=== PATIENT | female | born 1980 | race Caucasian/White ===

== ENCOUNTER 2020-08-05 09:54 | Outpatient (REF) | payer MEDICAID, SELFPAY ==
--- NOTE | 2020-08-05 | US_ITS ---
EXAMINATION: US RETROPERITONEAL LIMITED (RENAL ONLY) CLINICAL INFORMATION: Chronic kidney disease stage IV. COMPARISON: CT abdomen and pelvis dated 01/04/2020 TECHNIQUE: Real-time imaging of the kidneys. FINDINGS: RIGHT KIDNEY: 10.3 x 4.5 x 5.8 cm (SAG x AP x TRV). The kidney is normal in size and contour. No renal calculi or focal parenchymal lesions. There is increased renal cortical echogenicity and mild renal cortical thinning. Prominence of the collecting system. LEFT KIDNEY: 11.3 x 5.1 x 5.1 cm (SAG x AP x TRV). The kidney is normal in size and contour. No renal calculi or focal parenchymal lesions. Increased renal cortical echogenicity and mild renal cortical thinning. 9 mm cyst in the upper pole and a 9 mm cyst in the lower pole. No hydronephrosis. US/US renal BI IMPRESSION: Increased renal cortical echogenicity and mild renal cortical thinning consistent with underlying medical renal disease. Mild prominence of the right renal collecting system, similar to recent CT scan of the abdomen and pelvis.
== END 2020-08-05 09:55 | disposition home or self-care (01) ==
LOC: HO.US 09:54
PROVIDERS: Visit Provider Internal Medicine Nephrology
DX: N18.4 Chronic kidney disease, stage 4 (severe) (principal); N16 Renal tubulo-interstitial disorders in diseases classified elsewhere; N20.0 Calculus of kidney
CPT/HCPCS: 76775

== ENCOUNTER → 2020-09-30 14:47 | Outpatient (BNVA) | payer MEDICAID, SELFPAY | PROVIDERS: PCP Family Medicine; Visit Provider Urology | DX: N13.30 Unspecified hydronephrosis (principal) | CPT/HCPCS: 99202 ==

== ENCOUNTER → 2020-10-15 12:57 | Outpatient (REF) | payer MEDICAID, SELFPAY ==
--- NOTE | 2020-10-15 12:59 | NM_ITS ---
EXAMINATION: RENAL DYNAMIC IMAGING STUDY WITH LASIX CLINICAL INFORMATION: Hydronephrosis. Patient states question kidney stones and history of right back pain. Also states stent right kidney about 6 years ago. COMPARISON: No previous radionuclide renal scan is available for comparison. Renal ultrasound dated 08/05/[address] scan of the abdomen and pelvis, dated 01/04/2020, is available for comparison. TECHNIQUE: Serial gamma scintillation camera images were obtained over the posterior trunk during the initial transit and subsequent distribution of a bolus intravenous injection of 10 mCi of Tc-99m DTPA. At 30 minutes later, 36 mg of Lasix was administered intravenously and an additional 30 minutes of images obtained. Following acquisition of these dynamic images, a post voiding image was obtained. FINDINGS: Initial rapid sequence images show prompt and normal-appearing perfusion to the right kidney but moderately diminished perfusion to the left kidney which appears smaller than the right. Subsequent sequential static images obtained up to 30 minutes show good concentration in the right kidney but mildly diminished concentration in the left kidney which is slightly smaller in size on the right. There is evidence of excretory function by 3 to 4 minutes post injection bilaterally but this is slightly more intense on the right. At 30 minutes postinjection there is some activity visualized in the urinary bladder, but most of the activity is still retained in the bilateral renal collecting systems. There is mild pyelocaliectasis on the right but no significant dilatation on the left. Following Lasix administration, there is fairly prompt washout of the left renal collecting system but slower washout on the right. At the end of the study there is only minimal retained activity in the left renal pelvis which does not appear dilated but mild retention and dilatation are present in the right renal collecting system. The T-1/2 washout times following Lasix administration are: Left 14.2 minutes and right 28.9 minutes. The relative function of the two kidneys based on the 2-3 minute images are: Left 36% and right 64%. NM/NM renal imaging IMPRESSION: LEFT KIDNEY: The function of this kidney is significantly less than that of the right as quantitated above. Left kidney is slightly smaller than the right and also show diminished concentration. There is no hydronephrosis or outflow obstruction. RIGHT KIDNEY: Normal perfusion and function, and the latter are both significantly better than on the left. Mild hydronephrosis is present and there is a low-grade partial outflow obstruction, likely at the ureteropelvic junction.
== END ==
LOC: HO.NUCMED 12:57
PROVIDERS: Visit Provider Urology
DX: N13.30 Unspecified hydronephrosis (principal)
CPT/HCPCS: 78700; A9539; J1940

== ENCOUNTER → 2020-10-18 14:16 | Outpatient (BNVA) | payer MEDICAID, SELFPAY | PROVIDERS: Visit Provider Urology | DX: N13.30 Unspecified hydronephrosis (principal) | CPT/HCPCS: 99212 ==

== ENCOUNTER 2021-11-30 10:24 | Emergency (ER) | payer MEDICAID, SELFPAY ==
--- NOTE | ~2021-11-30 | CT_ITS ---
EXAMINATION: CT ABDOMEN AND PELVIS WITHOUT CONTRAST CLINICAL INFORMATION: Right-sided back pain. COMPARISON: CT 01/04/2020 TECHNIQUE: Multidetector volumetric imaging was performed from the superior aspect of the liver through the pubic symphysis. Sagittal and coronal reformatted images were obtained on the technologist's workstation. This CT examination was performed using dose optimization techniques as appropriate, variously including the following: *Automated exposure control *Adjustment of mA and/or kV according to patient size (this includes techniques or standardized protocols for targeted exams where dose is matched to indication/reason for exam; i.e. extremities or head) *Use of iterative reconstruction technique DLP: 481 mGy-cm FINDINGS: LUNG BASES: Mild to moderate bibasilar atelectasis/scarring, left greater than right, similar to previous. LIVER, GALLBLADDER, AND BILIARY TREE: Right lobe of the liver measures 18.6 cm. Normal shape, and attenuation. No focal hepatic lesion or biliary ductal dilatation is present. The gallbladder is unremarkable with no evidence of radiopaque gallstones, gallbladder wall thickening, or obvious pericholecystic inflammatory changes. PANCREAS: Unremarkable SPLEEN: Unremarkable. ADRENAL GLANDS: Unremarkable. KIDNEYS AND URETERS: Bilateral renal cortical thinning is redemonstrated. Redemonstrated are at least 4 right renal calculi, larger measuring 1.1 cm and lower pole image 3:39. Multiple punctate left renal calculi are noted. There is prominence of the right renal collecting system, appearing slightly more prominent as compared to previous. Some of the hypodensities in the right renal pelvis could be related to parapelvic cysts. There is minimal stranding adjacent to the left renal pelvis/proximal ureter. No radiodense calculi seen in the right collecting system. No hydroureter.. There is prominence of the left renal pelvis, appearing similar as compared to previous. No radiodense calculi are seen in the left collecting system, left ureter. No left hydroureter.. Left renal lower pole 3.2 cm cyst. BLADDER: Partially distended. No radiodense calculi noted in the bladder. GASTROINTESTINAL TRACT: Stomach is nondistended. No dilated small bowel loops. No colonic wall thickening or pericolonic inflammatory changes. Moderate volume stool in the large colon. Normal appendix. No ascites. No free air. ABDOMINAL WALL: No significant hernia is appreciated. LYMPH NODES: No pathologically enlarged lymph nodes are seen. VASCULAR: Normal caliber aorta. PELVIC VISCERA: Anteverted uterus. Left ovary appears enlarged, contains a 3 cm cyst. (Hounsfield measurements 11).. OSSEOUS STRUCTURES: Unremarkable. CT/CT abdomen pelvis wo con IMPRESSION: 1. Multiple bilateral nonobstructing renal calculi, detailed above. Prominence of the right renal pelvis, slightly more prominent as compared to previous. Possible component of right renal peripelvic cysts. There is similar prominence of the left renal pelvis. No hydroureter is seen. No radiodense calculi in the collecting system bilaterally is noted. Bilateral renal cortical thinning. Left renal lower pole 2.2 cm cyst. 2. Left ovary appears enlarged, contains a 3 cm cyst. If clinically indicated, this can be further evaluated with ultrasound. 3. No acute bowel findings seen. Fleischner guidelines were followed.
--- NOTE | ~2021-11-30 | XR_ITS ---
EXAMINATION: XR CHEST CLINICAL INFORMATION: Right-sided rib pain. COMPARISON: Chest radiograph dated 07/27/2017. TECHNIQUE: 2 views of the chest were obtained. FINDINGS: Stable linear scarring versus atelectasis within the left lung base. No new airspace consolidation. No pleural effusion or pneumothorax. Stable cardiomediastinal silhouette. XR/XR chest 2V IMPRESSION: No acute cardiopulmonary findings.
[2021-11-30 10:33] VITALS: BP 187/85; PULSE 95; RESP 20; TEMP 37.1; O2SAT 99; BMI 27.2
--- NOTE | 2021-11-30 10:47 | ED.GENADULT ---
HPI - General Adult General Chief complaint: General Medical Stated complaint: r rib pain Time Seen by Provider: 11/30/21 10:47 Related Data Home Medications Medication Instructions Recorded Confirmed betamethasone dipropionate 0.05 % 1 appl TOPICAL DAILY 09/30/20 09/30/20 lotion bupropion HCl 150 mg 24 hr tablet, 150 mg PO QAM 09/30/20 09/30/20 extended release Allergies Allergy/AdvReac Type Severity Reaction Status Date / Time No Known Allergies Allergy Verified 11/30/21 10:37 PMFSH Past Medical History Medical History Abscess of groin, right Chronic kidney disease Groin abscess Hydronephrosis Obstructive uropathy Renal failure Skin abscess Surgical History History of lithotripsy Family History Family History Father Diabetes mellitus HTN (hypertension) Mother Diabetes mellitus HTN (hypertension) Social History Social History Advance Directives: No Advance Directives Information Provided: No Patient : No Physical Exam ED Vital Signs: Vital Signs - 24 hr 11/30/21 10:33 Temperature 98.8 F Pulse Rate 95 Respiratory Rate 20 Blood Pressure 187/85 H Pulse Oximetry 99 BMI result Body Mass Index 27.2 Discharge Plan Discharge Prescriptions: No Action bupropion HCl 150 mg tablet extended release 24 hr 150 mg PO QAM 0RF betamethasone dipropionate 0.05 % lotion 1 appl topical DAILY 0RF
[2021-11-30 11:30] LABS: MANUAL DIFF FLAG NO
[2021-11-30 11:32] LABS: Basophils Absolute Auto 0.1 X10*3/uL (0.0-0.2); Basophils Percent Auto 0.8 % (0-2); Eosinophils Absolute Auto 0.3 X10*3/uL (0.0-0.4); Eosinophils Percent Auto 2.9 % (0-4); Hematocrit 37.4 % (37.0-47.0); Hemoglobin 12.9 g/dl (12.0-16.0); Imm Gran Abs Auto 0.04 X10*3/uL (0.00-0.03); Imm Gran Pct Auto 0.5 % (0.0-0.4); Lymphocytes Absolute Auto 2.9 X10*3/uL (1.2-4.9); Lymphocytes Percent Auto 32.8 % (20-40); Mean Corpuscular HGB Conc 34.5 g/dl (31.0-35.0); Mean Corpuscular Hemoglobin 28.4 pg (27.0-33.0); Mean Corpuscular Volume 82.4 fL (80.0-98.0); Mean Platelet Volume 10.5 fL (9.4-12.3); Monocytes Absolute Auto 0.7 X10*3/uL (0.1-1.2); Monocytes Percent Auto 7.5 % (2-11); Neutrophils Absolute Auto 4.8 x10*3/uL (2.0-8.3); Neutrophils Percent Auto 55.5 % (45-73); Platelet Count 230 X10*3/uL (160-400); Red Blood Count 4.54 X10*6/uL (4.20-5.50); Red Cell Distribution Width 13.4 % (11.0-16.0); White Blood Count 8.7 X10*3/uL (4.8-10.8)
--- NOTE | 2021-11-30 11:33 | PC.NURSE ---
Pt received: Pt AOX4 and offers c/o L lower back that intermittently radiates to front of stomach. Pt alsoc c/o urinary freq. Pt able to ambulate to ER bed. Heart sounds normal and lungs clear. Pt abd soft and tenderness to LLQ. Pt also c/o N/V.
--- NOTE | 2021-11-30 11:38 | ED.GENADULT ---
HPI - General Adult General Chief complaint: General Medical Stated complaint: r rib pain Time Seen by Provider: 11/30/21 10:47 Source: patient and foreign language interpreter Mode of arrival: ambulatory Limitations: language barrier History of Present Illness HPI narrative: 41-year-old female with a history of renal colic status post stenting followed by [facility] urology here with reports of 1 week of right-sided back pain with radiation to the right lower abdomen intermittent in nature with associated urinary frequency and nausea. No vomiting, diarrhea, constipation, fevers, urinary burning or hematuria. Patient reports she is currently on her menses. Related Data Home Medications Medication Instructions Recorded Confirmed betamethasone dipropionate 0.05 % 1 appl TOPICAL DAILY 09/30/20 09/30/20 lotion bupropion HCl 150 mg 24 hr tablet, 150 mg PO QAM 09/30/20 09/30/20 extended release Previous Rx's Medication Instructions Recorded cefpodoxime 100 mg tablet 100 mg PO BID #14 tab 11/30/21 oxycodone 5 mg tablet 5 mg PO Q6H PRN #5 tab 11/30/21 phenazopyridine 200 mg tablet 200 mg PO TID PRN #10 tab 11/30/21 (Pyridium) Allergies Allergy/AdvReac Type Severity Reaction Status Date / Time No Known Allergies Allergy Verified 11/30/21 10:37 Review of Systems Review of Systems: Yes all other systems are reviewed and are negative Constitutional: Constitutional: Reports no additional constitutional complaints, Denies body ache(s), Denies chills, Denies fever(s), Denies headache(s) and Denies weakness Eyes: Eyes: Reports no additional eye complaints and Denies change in vision ENT: Reports system reviewed and no additional complaints, except as documented, Denies dizziness, Denies headache(s), Denies nasal congestion, Denies nasal discharge and Denies neck pain Cardiovascular: Cardiovascular: Reports no additional cardiovascular complaints, Denies chest pain, Denies leg edema and Denies dyspnea Respiratory: Respiratory: Reports no additional respiratory complaints, Denies cough and Denies dyspnea Gastrointestinal: Gastrointestinal: Reports no additional gastrointestinal complaints, Reports abdominal pain, Denies diarrhea, Reports nausea and Denies vomiting Genitourinary: Genitourinary: Reports no additional female genitourinary complaints, Denies dysuria, Reports flank pain, Denies urinary incontinence, Denies urinary hesitancy, Denies urinary urgency and Denies vaginal discharge Musculoskeletal: Musculoskeletal: Reports no additional musculoskeletal complaints, Reports back pain, Denies arthralgias, Denies joint swelling, Denies neck pain, Denies numbness and Denies tingling Integumentary/Breasts: Skin/Breast: Reports system reviewed and no additional complaints, except as docu and Denies rash Neurologic: Reports system reviewed and no additional complaints, except as documented, Denies dizziness, Denies headache(s), Denies numbness, Denies tingling and Denies weakness [facility] Past Medical History Attestation statement: The following information was validated with the patient. Source: old records reviewed and nursing notes reviewed Medical History Abscess of groin, right Chronic kidney disease Groin abscess Hydronephrosis Obstructive uropathy Renal failure Skin abscess Surgical History History of lithotripsy Family History Family History Father Diabetes mellitus HTN (hypertension) Mother Diabetes mellitus HTN (hypertension) Social History Social History Advance Directives: No Advance Directives Information Provided: No Patient : No Physical Exam ED Vital Signs: Vital Signs - 24 hr 11/30/21 10:33 11/30/21 13:03 Temperature 98.8 F Pulse Rate 95 59 Respiratory Rate 20 16 Blood Pressure 187/85 H 154/72 H Pulse Oximetry 99 99 BMI result Body Mass Index 27.2 Const General: cooperative, healthy appearing, comfortable and no acute distress Orientation/consciousness: patient oriented x3 Limitations: language barrier HENMT Head: Yes normal to inspection Ears: hearing grossly normal bilaterally and TM's normal bilaterally General nose exam: Normal external nose present Face and sinus: Yes normal facial exam Mouth: Normal oral and palatal mucosa present Teeth and gingiva: dentition normal Throat: Yes posterior oropharynx normal and Yes tonsils normal Eyes General: appearance normal, both eyes and all related structures Pupils: Equal, round and reactive pupils present Neck Neck: Yes normal visual inspection, Yes full ROM, Yes no lymphadenopathy and Yes no meningeal signs Chest Chest palpation & inspection: normal inspection of the chest Resp Effort & Inspection: normal respiratory effort Auscultation: clear to auscultation bilaterally Cardio Rate: regular rate Rhythm: regular rhythm Peripheral pulses: Peripheral pulses 2+ throughout GI Inspection: Yes normal to inspection Palpation (GI): Soft to palpation and Tenderness to palpation present (GI) (right sided abdomen-no rebound or guarding ) General: Yes CVA tenderness (righ tmod) Back/Spine/Pelvis Back: CVA tenderness (righ tmod) Neuro General: patient oriented x3 and no meningeal signs Cranial nerves: Yes Equal, round and reactive pupils present Course Course Course Narrative: 41-year-old female here with reports of intermittent right flank and abdomen pain with urinary frequency and nausea over the last 1 week. On exam has tenderness in the right abdomen as well as the right CVA. No rebound or guarding. Will need labs, UA, CT A/P 1400-labs unremarkable. UA is consistent with infection. CT abdomen pelvis shows 1. Multiple bilateral nonobstructing renal calculi, detailed above. Prominence of the right renal pelvis, slightly more prominent as compared to previous. Possible component of right renal peripelvic cysts. There is similar prominence of the left renal pelvis. No hydroureter is seen. No radiodense calculi in the collecting system bilaterally is noted. ? Bilateral renal cortical thinning. Left renal lower pole 2.2 cm cyst. ? 2. Left ovary appears enlarged, contains a 3 cm cyst. If clinically indicated, this can be further evaluated with ultrasound. ? 3. No acute bowel findings seen. -patient is feeling improved tolerating p.o.. 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 Based on the CT scan there is some slight prominence of the right renal pelvis and there may be a component of some outflow obstruction. However there is no evidence of hydronephrosis or stranding. She has a urologist at [facility] and she can follow up with them outpatient. Reviewed worrisome signs and symptoms of when to return to the emergency department. Comfortable discharge home. Medical Decision Making MDM Narrative Medical decision making narrative: Renal colic, pyelonephritis, cholecystitis, gallstones, appendicitis Medical Records Medical records reviewed: Yes I reviewed the patient's medical records. Lab Data Lab results reviewed: Yes I reviewed the patient's lab results. Result diagrams: 11/30/21 11:24 11/30/21 11:24 Labs: Lab Results 11/30/21 11/30/21 11/30/21 Range/Units 11:24 11:24 11:53 WBC 8.7 (4.8-10.8) X10*3/uL RBC 4.54 (4.20-5.50) X10*6/uL Hgb 12.9 (12.0-16.0) g/dl Hct 37.4 (37.0-47.0) % MCV 82.4 (80.0-98.0) fL MCH 28.4 (27.0-33.0) pg MCHC 34.5 (31.0-35.0) g/dl RDW 13.4 (11.0-16.0) % Plt Count 230 (160-400) X10*3/uL MPV 10.5 (9.4-12.3) fL Immature Gran % (Auto) 0.5 H (0.0-0.4) % Neut % (Auto) 55.5 (45-73) % Lymph % (Auto) 32.8 (20-40) % [place] % (Auto) 7.5 (2-11) % Eos % (Auto) 2.9 (0-4) % Baso % (Auto) 0.8 (0-2) % Lymph # (Auto) 2.9 (1.2-4.9) X10*3/uL [place] # (Auto) 0.7 (0.1-1.2) X10*3/uL Eos # (Auto) 0.3 (0.0-0.4) X10*3/uL Baso # (Auto) 0.1 (0.0-0.2) X10*3/uL Abs Immat Gran (auto) 0.04 H (0.00-0.03) X10*3/uL Absolute Neuts (auto) 4.8 (2.0-8.3) x10*3/uL Absolute Nucleated RBC 0.000 (0.0-0.012) X10*3/uL Nucleated RBC % (auto) 0.0 (0.0-0.2) /100WBC Sodium 136 (135-145) mmol/L Potassium 4.4 (3.3-5.1) mmol/L Chloride 105 (96-108) mmol/L Carbon Dioxide 25 (22-29) mmol/L Anion Gap 10 L (12-20) BUN 16 (9-16) mg/dL Creatinine 1.98 H (0.5-1.4) mg/dL Estim Creat Clear Calc 36.3 Estimated GFR 28 Random Glucose 83 (60-115) mg/dL Calcium 9.8 (8.4-10.2) mg/dL Total Bilirubin 0.2 (0.0-1.0) mg/dL Direct Bilirubin < 0.2 (0.0-0.5) mg/dL AST 16 (5-31) U/L ALT 10 (0-31) U/L Alkaline Phosphatase 95 (39-117) U/L Total Protein 7.4 (6.5-8.0) g/dL Albumin 4.0 (3.5-5.0) g/dL Lipase 64 (8-78) U/L Urine Color YELLOW Urine Appearance CLOUDY Urine pH 6.0 (5.0-8.0) Ur Specific [place] 1.020 (1.005-1.025) Urine Protein 2+ H (NEG-TRACE) MG/DL Urine Glucose (UA) NEG (NEG) MG/DL Urine Ketones NEG (NEG) MG/DL Urine Blood NEG (NEG) Urine Nitrite NEG (NEG) Ur Leukocyte Esterase 2+ H (NEG) Urine RBC 0 (0) /HPF Urine WBC 15-29 H (0-4) /HPF Ur Squamous Epith Cells 2+ /LPF Urine Bacteria 4+ /LPF Urine Test (NEGATIVE) 11/30/21 Range/Units 11:53 WBC (4.8-10.8) X10*3/uL RBC (4.20-5.50) X10*6/uL Hgb (12.0-16.0) g/dl Hct (37.0-47.0) % MCV (80.0-98.0) fL MCH (27.0-33.0) pg MCHC (31.0-35.0) g/dl RDW (11.0-16.0) % Plt Count (160-400) X10*3/uL MPV (9.4-12.3) fL Immature Gran % (Auto) (0.0-0.4) % Neut % (Auto) (45-73) % Lymph % (Auto) (20-40) % [place] % (Auto) (2-11) % Eos % (Auto) (0-4) % Baso % (Auto) (0-2) % Lymph # (Auto) (1.2-4.9) X10*3/uL [place] # (Auto) (0.1-1.2) X10*3/uL Eos # (Auto) (0.0-0.4) X10*3/uL Baso # (Auto) (0.0-0.2) X10*3/uL Abs Immat Gran (auto) (0.00-0.03) X10*3/uL Absolute Neuts (auto) (2.0-8.3) x10*3/uL Absolute Nucleated RBC (0.0-0.012) X10*3/uL Nucleated RBC % (auto) (0.0-0.2) /100WBC Sodium (135-145) mmol/L Potassium (3.3-5.1) mmol/L Chloride (96-108) mmol/L Carbon Dioxide (22-29) mmol/L Anion Gap (12-20) BUN (9-16) mg/dL Creatinine (0.5-1.4) mg/dL Estim Creat Clear Calc Estimated GFR Random Glucose (60-115) mg/dL Calcium (8.4-10.2) mg/dL Total Bilirubin (0.0-1.0) mg/dL Direct Bilirubin (0.0-0.5) mg/dL AST (5-31) U/L ALT (0-31) U/L Alkaline Phosphatase (39-117) U/L Total Protein (6.5-8.0) g/dL Albumin (3.5-5.0) g/dL Lipase (8-78) U/L Urine Color Urine Appearance Urine pH (5.0-8.0) Ur Specific [place] (1.005-1.025) Urine Protein (NEG-TRACE) MG/DL Urine Glucose (UA) (NEG) MG/DL Urine Ketones (NEG) MG/DL Urine Blood (NEG) Urine Nitrite (NEG) Ur Leukocyte Esterase (NEG) Urine RBC (0) /HPF Urine WBC (0-4) /HPF Ur Squamous Epith Cells /LPF Urine Bacteria /LPF Urine Test NEGATIVE (NEGATIVE) Imaging Data CT scan - abdomen: Attestation: I personally reviewed and interpreted this imaging study as follows: Radiologist's impression: IMPRESSION: 1. Multiple bilateral nonobstructing renal calculi, detailed above. Prominence of the right renal pelvis, slightly more prominent as compared to previous. Possible component of right renal peripelvic cysts. There is similar prominence of the left renal pelvis. No hydroureter is seen. No radiodense calculi in the collecting system bilaterally is noted. ? Bilateral renal cortical thinning. Left renal lower pole 2.2 cm cyst. ? 2. Left ovary appears enlarged, contains a 3 cm cyst. If clinically indicated, this can be further evaluated with ultrasound. ? 3. No acute bowel findings seen. ? Fleischner guidelines were followed. Discharge Plan Discharge Clinical Impression: UTI (urinary tract infection) Patient Disposition: Home, Self-Care Instructions: Urinary Tract Infection in Women (DC) Additional Instructions: Follow-up with a urologist Increase fluids, rest Your CT scan shows several kidney stones are with in your kidney. There is slight swelling of the right renal pelvis which was seen on your previous CT scan. You can discuss this with your urologist. Prescriptions: New cefpodoxime 100 mg tablet 100 mg PO BID Qty: 14 0RF Rx Instructions: must administer with a meal/food phenazopyridine [Pyridium] 200 mg tablet 200 mg PO TID PRN (Reason: pain) Qty: 10 0RF oxycodone 5 mg tablet 5 mg PO Q6H PRN (Reason: pain) Qty: 5 0RF No Action bupropion HCl 150 mg tablet extended release 24 hr 150 mg PO QAM 0RF betamethasone dipropionate 0.05 % lotion 1 appl topical DAILY 0RF Referrals: Physician,Unknown J [Primary Care Provider] - 1 week Stand Alone Forms: Work/School Release Interventions: ED Discharge Assessment Last Done: 11/30/21 13:28 Discharge Date/Time: 11/30/21 13:35 Print Language: Estonian
[2021-11-30] MEDS: Ketorolac Tromethamine 30 MG/ML VIAL IVPUSH (11:39)
[2021-11-30] MEDS: 0.9 % Sodium Chloride 1,000 ML 999 ML IV (11:40)
[2021-11-30 11:47] LABS: Alanine Aminotransferase 10 U/L (0-31); Alkaline Phosphatase 95 U/L (39-117); Anion Gap 10 (12-20); Aspartate Amino Transferase 16 U/L (5-31); Bilirubin Total 0.2 mg/dL (0.0-1.0); Blood Urea Nitrogen 16 mg/dL (9-16); Calcium 9.8 mg/dL (8.4-10.2); Carbon Dioxide 25 mmol/L (22-29); Chloride 105 mmol/L (96-108); Creatinine Clr Calc Pharmacy 36.3; Estimated Glomerular Filt Rate 28; Glucose Random 83 mg/dL (60-115); Potassium 4.4 mmol/L (3.3-5.1); Sodium 136 mmol/L (135-145); Total Protein 7.4 g/dL (6.5-8.0)
[2021-11-30 11:57] LABS: Bilirubin Direct < 0.2 mg/dL (0.0-0.5); Lipase 64 U/L (8-78)
[2021-11-30 12:02] LABS: Appearance Urine CLOUDY; Color Urine YELLOW; Glucose Urine UA NEG (NEG); Leukocyte Esterase Urine 2+ (NEG); Nitrite Urine NEG (NEG); UACC Culture Trigger YES; Urine Blood NEG (NEG); Urine Ketones NEG (NEG); Urine Protein 2+ MG/DL (NEG-TRACE)
[2021-11-30 12:05] LABS: UPreg QC Valid YES; Urine Pregnancy NEGATIVE (NEGATIVE)
[2021-11-30 12:15] LABS: Squamous Epithelial Cell Urine 2+ /LPF
[2021-11-30 12:17] LABS: RBC Urine 0 /HPF (0)
[2021-11-30 12:18] LABS: Bacteria Urine 4+ /LPF
[2021-11-30 13:03] VITALS: BP 154/72; PULSE 59; RESP 16; O2SAT 99
== END 2021-11-30 13:35 | disposition home or self-care (01) ==
PROVIDERS: Nurse Practitioner Family; Physician Assistant; Emergency Provider Emergency Medicine
DX: N39.0 Urinary tract infection, site not specified (principal); R07.81 Pleurodynia; Z79.899 Other long term (current) drug therapy
CPT/HCPCS: 36415; 71046; 74176; 80053; 81001; 81003; 81025; 82248; 83690; 85025; 87086; 87088; 87186; 96360; 96361; 99283; 99284; J1885

== ENCOUNTER 2023-11-26 15:01 | Outpatient (REF) | payer MEDICAID, SELFPAY ==
[2023-11-26 16:02] LABS: MANUAL DIFF FLAG NO
[2023-11-26 16:31] LABS: Basophils Absolute Auto 0.1 X10*3/uL (0.0-0.2); Basophils Percent Auto 0.8 % (0-2); Eosinophils Absolute Auto 0.4 X10*3/uL (0.0-0.4); Eosinophils Percent Auto 4.6 % (0-4); Hematocrit 37.2 % (37.0-47.0); Hemoglobin 12.4 g/dl (12.0-16.0); Imm Gran Abs Auto 0.05 X10*3/uL (0.00-0.03); Imm Gran Pct Auto 0.6 % (0.0-0.4); Lymphocytes Absolute Auto 2.7 X10*3/uL (1.2-4.9); Lymphocytes Percent Auto 30.2 % (20-40); Mean Corpuscular HGB Conc 33.3 g/dl (31.0-35.0); Mean Corpuscular Hemoglobin 27.6 pg (27.0-33.0); Mean Corpuscular Volume 82.7 fL (80.0-98.0); Mean Platelet Volume 10.3 fL (9.4-12.3); Monocytes Absolute Auto 0.7 X10*3/uL (0.1-1.2); Monocytes Percent Auto 7.6 % (2-11); Neutrophils Percent Auto 56.2 % (45-73); Platelet Count 236 X10*3/uL (160-400); Red Cell Distribution Width 14.5 % (11.0-16.0); White Blood Count 8.9 X10*3/uL (4.8-10.8)
[2023-11-26 17:06] LABS: Creatinine Urine 45.69 mg/dL
[2023-11-26 17:17] LABS: Microalbum/Creatinine Ratio Ur 1367.9 ug/mg cr (<30)
[2023-11-26 18:09] LABS: Anion Gap 14 (12-20); Blood Urea Nitrogen 30 mg/dL (9-16); Calcium 9.9 mg/dL (8.4-10.2); Carbon Dioxide 26 mmol/L (22-29); Chloride 107 mmol/L (96-108); Estimated Glomerular Filt Rate 19; Glucose Random 103 mg/dL (60-115); Potassium 4.4 mmol/L (3.3-5.1); Sodium 143 mmol/L (135-145)
== END 2023-11-26 15:02 | disposition home or self-care (01) ==
LOC: HO.HHCL 15:01
PROVIDERS: Visit Provider Nurse Practitioner
DX: I12.9 Hypertensive chronic kidney disease with stage 1 through stage 4 chronic kidney disease, or unspecified chronic kidney disease (principal); N18.30 Chronic kidney disease, stage 3 unspecified
CPT/HCPCS: 36415; 80048; 82043; 82570; 85025

== ENCOUNTER 2024-01-12 15:32 | Outpatient (REF) | payer MEDICAID, SELFPAY ==
[2024-01-12 17:25] LABS: Anion Gap 11 (12-20); Blood Urea Nitrogen 20 mg/dL (9-16); Calcium 9.9 mg/dL (8.4-10.2); Carbon Dioxide 25 mmol/L (22-29); Chloride 105 mmol/L (96-108); Estimated Glomerular Filt Rate 25; Glucose Random 93 mg/dL (60-115); Iron 59 mcg/dL (30-160); Percent Iron Saturation 24 % (15-50); Phosphorus 2.8 mg/dL (2.7-4.5); Potassium 4.4 mmol/L (3.3-5.1); Sodium 137 mmol/L (135-145); Total Iron Binding Capacity 249 mcg/dL (228-428); Unsaturated Iron Binding 190 ug/dL
[2024-01-12 17:36] LABS: Ferritin 46 ng/mL (10-250); Vitamin D 25-OH Total 15.8 ng/mL (>30)
[2024-01-13 06:11] LABS: Parathyroid Hormone Intact 352.1 pg/mL (8.7-77.1)
[2024-01-14 11:44] LABS: C. trachomatis RNA TMA NOT DETECTED (NOT DETECTED); Candida glabrata RNA NOT DETECTED (NOT DETECTED); Candida species RNA NOT DETECTED (NOT DETECTED); N. gonorrhoeae RNA TMA NOT DETECTED (NOT DETECTED); Trichomonas vaginalis RNA NOT DETECTED (NOT DETECTED)
== END 2024-01-12 15:33 | disposition home or self-care (01) ==
LOC: HO.HHCL 15:32
PROVIDERS: Visit Provider Nurse Practitioner
DX: I12.9 Hypertensive chronic kidney disease with stage 1 through stage 4 chronic kidney disease, or unspecified chronic kidney disease (principal); N18.4 Chronic kidney disease, stage 4 (severe); N89.8 Other specified noninflammatory disorders of vagina
CPT/HCPCS: 36415; 80048; 81513; 82306; 82728; 83540; 83970; 84100; 87481; 87491; 87591; 87661

== ENCOUNTER 2024-02-01 13:39 | Outpatient (AMB) | payer MEDICAID, SELFPAY ==
--- NOTE | 2024-02-01 13:50 | HO.NEPHOV ---
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 She has long standing hypertension and is on multiple anti hypertensive medications. She is not aware of nick vascular disease. She denies CAD, CHF, CVA, BRUCE , carotid stenosis, PAD, renal stones, new bone pain, proteinuria, retinopathy, sensori neural deafness, orthostatic symptoms. She denies drug use, H/O hepatitis, HIV, excess NSAID use. She has no H/O epistaxis, photosensitivity, mouth ulcers , hematuria or renal stones. She is not a diabetic. Her BP has been well controlled lately on her current medication regimen. She is active and feels well. She has been having serum creatinine close to 2.0 for a few years. [facility] Medical History (Updated 02/01/24 @ 15:29 by Jose Caldera MD) Hydronephrosis Obstructive uropathy Chronic kidney disease Renal failure Skin abscess Groin abscess Abscess of groin, right Surgical History (Updated 02/01/24 @ 13:57 by Jennifer Cabrera MA) H/O section History of lithotripsy Family History Father Diabetes mellitus HTN (hypertension) Mother Diabetes mellitus HTN (hypertension) Social History (Updated 02/01/24 @ 13:57 by Jennifer Cabrera MA) Alcohol intake: never Patient Tobacco Use Status: Never used Tobacco e-Cigarette/Vaping Use: Currently Using Physical Exam Vital Signs: Last Vital Signs Pulse 73 02/01/24 13:52 BP 130/70 02/01/24 13:52 Pulse Ox 99 02/01/24 13:52 Oxygen Delivery Method Room Air 02/01/24 13:52 BMI result Body Mass Index 29.0 Const General: comfortable and no acute distress Orientation/consciousness: patient oriented x3 HEENT Head: Yes normocephalic Mouth: Normal oral and palatal mucosa present Eyes EOM: EOMs intact bilaterally Neck Neck: Yes supple Resp Auscultation: clear to auscultation bilaterally Cardio Jugular venous distension: no JVD Rate: regular rate GI Palpation (GI): Soft to palpation Auscultation: normal bowel sounds General: Yes no CVA tenderness Back/Spine/Pelvis Back: no CVA tenderness Skin General skin exam: no rashes or lesions noted Neuro General: patient oriented x3 and moves all extremities Extrem General: Yes no pedal edema Results Reviewed Nephrology Results: Hgb 12.4 g/dl (12.0-16.0) 11/26/23 WBC 8.9 X10*3/uL (4.8-10.8) 11/26/23 Plt Count 236 X10*3/uL (160-400) 11/26/23 Sodium 137 mmol/L (135-145) 01/12/24 Potassium 4.4 mmol/L (3.3-5.1) 01/12/24 Chloride 105 mmol/L (96-108) 01/12/24 Carbon Dioxide 25 mmol/L (22-29) 01/12/24 BUN 20 mg/dL (9-16) H 01/12/24 Creatinine 2.12 mg/dL (0.5-1.4) H 01/12/24 Calcium 9.9 mg/dL (8.4-10.2) 01/12/24 Phosphorus 2.8 mg/dL (2.7-4.5) 01/12/24 PTH Intact 352.1 pg/mL (8.7-77.1) H 01/12/24 Urine Protein 2+ MG/DL (NEG-TRACE) H 11/30/21 Urine Creatinine 45.69 mg/dL 11/26/23 Assessment & Plan Assessment & Plan (1) CKD (chronic kidney disease) stage 4, GFR 15-29 ml/min: Code(s): N18.4 - Chronic kidney disease, stage 4 (severe) Category: Medical (2) Hypertension: Code(s): I10 - Essential (primary) hypertension Category: Medical Qualifiers: Hypertension type: primary hypertension Qualified Code(s): I10 - Essential (primary) hypertension (3) Secondary hyperparathyroidism of renal origin: Code(s): N25.81 - Secondary hyperparathyroidism of renal origin Category: Medical Plan Rosario has renal dysfunction for a long time. She has not a diabetic. She has longstanding hypertension which had been under poor control needing more medications. Recently she had been started on Jardiance. She has not known to have any cardiomyopathy but has history of nephrolithiasis needing interventions and stent placement. She is currently on amlodipine, labetalol and losartan to keep her blood pressure at goal. She avoids nonsteroidal anti-inflammatories. She maintains good hydration. She has no clinical signs of heart failure or orthostatic symptoms. I have ordered extensive investigations including Doppler of her renal arteries. She may need a renal biopsy. Further management is pending evolving data. I had the opportunity to answer all her questions. Follow-up appointment given. Orders: Orders Hepatitis B Surface Antibody 02/01/24 I10 - Essential (primary) hypertension, N18.4 - Chronic kidney disease, stage 4 (severe) Hepatitis B Surface Antigen 02/01/24 I10 - Essential (primary) hypertension, N18.4 - Chronic kidney disease, stage 4 (severe) Complement C4 02/01/24 I10 - Essential (primary) hypertension, N18.4 - Chronic kidney disease, stage 4 (severe) Anti Glomerular Basement Memb 02/01/24 I10 - Essential (primary) hypertension, N18.4 - Chronic kidney disease, stage 4 (severe) Proteinase 3 PR3 Antibodies 02/01/24 I10 - Essential (primary) hypertension, N18.4 - Chronic kidney disease, stage 4 (severe) Anti DNA DS Antibody 02/01/24 I10 - Essential (primary) hypertension, N18.4 - Chronic kidney disease, stage 4 (severe) Blood Urea Nitrogen 02/01/24 I10 - Essential (primary) hypertension, N18.4 - Chronic kidney disease, stage 4 (severe) Parathyroid Hormone Intact 02/01/24 I10 - Essential (primary) hypertension, N18.4 - Chronic kidney disease, stage 4 (severe) Protein Creatinine Ratio, Ur 02/01/24 I10 - Essential (primary) hypertension, N18.4 - Chronic kidney disease, stage 4 (severe) US renal doppler 02/01/24 I10 - Essential (primary) hypertension, N18.4 - Chronic kidney disease, stage 4 (severe) Hepatitis B Core Antibody 02/01/24 I10 - Essential (primary) hypertension, N18.4 - Chronic kidney disease, stage 4 (severe) Immunofixation Pnl, Serum 02/01/24 I10 - Essential (primary) hypertension, N18.4 - Chronic kidney disease, stage 4 (severe) Complement C3 02/01/24 I10 - Essential (primary) hypertension, N18.4 - Chronic kidney disease, stage 4 (severe) Myeloperoxidase Antibody 02/01/24 I10 - Essential (primary) hypertension, N18.4 - Chronic kidney disease, stage 4 (severe) Phospholipase A2 Receptor Pnl 02/01/24 I10 - Essential (primary) hypertension, N18.4 - Chronic kidney disease, stage 4 (severe) Creatinine 02/01/24 I10 - Essential (primary) hypertension, N18.4 - Chronic kidney disease, stage 4 (severe) Electrolytes 02/01/24 I10 - Essential (primary) hypertension, N18.4 - Chronic kidney disease, stage 4 (severe) Vitamin D 25-OH Total 02/01/24 I10 - Essential (primary) hypertension, N18.4 - Chronic kidney disease, stage 4 (severe) UA and rflx microscopic 02/01/24 I10 - Essential (primary) hypertension, N18.4 - Chronic kidney disease, stage 4 (severe) Coding Level of Care Code New Pt Level 4 (65020) Diagnoses CKD (chronic kidney disease) stage 4, GFR 15-29 ml/min N18.4 Primary hypertension I10 Hypertension type: primary hypertension Secondary hyperparathyroidism of renal origin N25.81
[2024-02-01 13:52] VITALS: BP 130/70; PULSE 73; O2SAT 99; BMI 29.0
== END 2024-02-01 14:22 | disposition home or self-care (01) ==
PROVIDERS: PCP Nurse Practitioner; Referring Provider Nurse Practitioner; Visit Provider Internal Medicine Nephrology
DX: I12.9 Hypertensive chronic kidney disease with stage 1 through stage 4 chronic kidney disease, or unspecified chronic kidney disease (principal); N18.4 Chronic kidney disease, stage 4 (severe); N25.81 Secondary hyperparathyroidism of renal origin
CPT/HCPCS: 99204

== ENCOUNTER → 2024-02-01 13:39 | Outpatient (BNVA) | payer MEDICAID, SELFPAY | PROVIDERS: PCP Nurse Practitioner; Referring Provider Nurse Practitioner; Visit Provider Internal Medicine Nephrology | DX: I12.9 Hypertensive chronic kidney disease with stage 1 through stage 4 chronic kidney disease, or unspecified chronic kidney disease (principal); N18.4 Chronic kidney disease, stage 4 (severe); N25.81 Secondary hyperparathyroidism of renal origin; Z79.899 Other long term (current) drug therapy | CPT/HCPCS: 99202 ==

== ENCOUNTER 2025-04-02 08:40 | Outpatient (REF) | payer MEDICAID, SELFPAY ==
--- OUTSIDE RECORDS SUMMARY | 2025-04-02 08:52 | XMS_ITS | Encounter Summary ---
Author Organization [employer] Address [address] [place] [address] Care Team Providers Care Copy Manager Name Role Phone Junior Samreen CHARLES Primary Care Provider [phone] Reason for Visit * Reason Comments Med Refill Encounter Details Date Type Department Care Team ([facility] st Contact Info) Description 03/18/2024 Refill [facility] [address] [place] [address] Channing Menchaca AGNP Uncontrolled hypertension; Edema of both lower legs Social History Tobacco Use Types Packs/Day Years Used Date Smoking Tobacco: Never Passive Smoke Exposure: Never Smokeless Tobacco: Never Alcohol Use Standard Drinks/Week Comments Never 0 (1 standard drink = 0.6 oz pur e alcohol) Depression Answer Date Recorded Patient Health Questionnaire-9 Score 8 01/12/2024 Patient Health Questionnaire-9 Score 8 01/12/2024 Last PHQ-9: Questionnaire Data Not on file 0 01/12/2024 Housing Stability Answer Date Recorded What is your housing situation today? I have hilda araiza 07/12/[address] you li ve. Do you have problems with any of the following? None of the above 07/12/2023 Food Insecurity Answer Date Recorded Within the past 12 months, y ou worried that your food would run out before you got money to buy more: Never True 07/12/2023 Within the past 12 months,th e food you bought just didn't last and you didn't have enough money to get more: Never True Transportation Answer Date Recorded In the past 12 months, has l ack of transportation kept you from medical appts, meetings, work or from getting things needed for daily living? No 07/12/2023 Utilities Answer Date Recorded In the past 12 months, has t he electric, gas, oil or water company threatened to shut off services in your home? No 07/12/2023 Depression Answer Date Recorded Patient Health Questionnaire-2 Score 2 01/12/2024 Comments No Sex and Gender Information Value Date Recorded Sex Assigned at Female 07/27/2022 10:22 AM EDT Legal Sex Female 10:22 AM EDT Gender Identity Female 07/27/2022 10:22 AM EDT Sexual Orientation Straight 07/27/2022 10 :22 AM EDT documented as of this encounter Plan of Treatment Not on file documented as of this encounter Visit Diagnoses Diagnosis Uncontrolled hypertension Edema of both lower legs documented in this encounter Additional Health Concerns Assessment Noted Time PHQ-9 Depression Total Score: 8 01/12/20 24 2:34 PM EDT documented as of this encounter Care Teams Copy Manager Relationship Specialty Start Date End Date Samreen Pacheco NP [address] [place] [id number] PCP - General Family Medicine 07/06/23 documented as of this encounter
--- OUTSIDE RECORDS SUMMARY | 2025-04-02 08:52 | XMS_ITS | Clinical Summary ---
Author Organization [facility] Address [facility] [address] Phone Care Team Providers Care Food Safety Coordinator Name Role Phone Yulisa Brewster DO Primary Care Provider Unava ilable Allergies No known active allergies Medications amLODIPine (NORVASC) 5 MG tablet Take 2 tablets (10 mg total) by mouth 1 (one) time each day 180 tablet 2 04/07/2022 Active Jardiance 10 MG tablet TAKE 1 TABLET (10 MG) BY MOUTH IN THE MORNING FOR 30 DOSES. 01/21/2024 Active losartan (COZAAR) 25 MG tablet Take 25 mg by mouth every morning 01/18/2024 Active labetalol (NORMODYNE) 100 MG tablet Take 50 mg by mouth in the morning and 50 mg in the evening. 01/12/2024 Active sertraline (ZOLOFT) 25 MG tablet TAKE 2 TABLETS (50 MG TOTAL) BY MOUTH EVERY MORNING. Active Active Problems Problem Noted Date Diagnosed Date Chest pain 12/13/2023 Overview (02/08/2024): Last Assessment & Plan: -patient presenting with atypical chest pain -likely due to uncontrolled hypertension -12 lead EKG today without acute findings -referral to cardiology placed for further testing in the setting uncontrolled hypertension -reviewed red flags for seeking emergency assistance Depressive disorder 11/26/2023 Overview (02/08/2024): Last Assessment & Plan: -PHQ-9 score 24 -declines to speak with clinician today -start sertraline 25 mg today. Will consider dose increase following televisit -follow-up in 2 weeks via televisit Bilateral lower leg edema 02/24/2023 Overview (03/31/2023): Last Assessment & Plan: DDx: venous insuficiency, CKD, hypoalbuminemia Hypertensive disorder 02/11/2023 Overview (03/31/2023): Last Assessment & Plan: BP 166/82 before leaving clinic. Hypertension not controlled since last visit 02/11 when she was restarted on amlodipine 5 mg. Patient also has stage 3b chronic kidney disease and some edema in her right leg. I will add Lasix 20 mg and order a CMP. I gave the patient a BP log, she is to monitor her BP and f/up in two weeks. Counseled low-salt diet, advised increase in exercise to 30 min/ day most days, weight loss if applicable. Printed out dash diet and sent referral to nutrition. Renal osteodystrophy 04/07/2022 Stage 3b chronic kidney disease 02/07/2021 Chronic kidney disease 12/16/2020 Pyelonephritis associated with another disorder 12/16/2020 Renal stone 12/16/2020 Chronic kidney disease stage 4 12/16/2020 Urinary tract obstruction 12/12/2018 Moderate major depression, single episode 2018 Overview (03/31/2023): Last Assessment & Plan: Pt has a history of depression, currently denies any SI. PHQ9 16 Will ask our [facility] clinician to contact her Immunizations Immunization Administration Dates Next Due Hepatitis B 02/24/2023 Influenza, Quadrivalent, Preservative Free 12/14 Pfizer SARS-COV-2 05/03/2021,04/11/2021 Family History Medical History Relation Comments Diabetes Mother Hypertension Mother Relation Status Comments Father Alive Mother Alive Social History Tobacco Use Types Packs/Day Years Used Date Smoking Tobacco: Every Day Cigarettes Alcohol Use Standard Drinks/Week Comments Yes 0 (1 standard drink = 0.6 oz pure alcohol) Alcoholic Drinks/day: Occasional social drink Comments Unknown Sex and Gender Information Value Date Recorded Sex Assigned at Not on file Legal Sex Female 5:06 PM EST Gender Identity Not on file Sexual Orientation Not on file Last Filed Vital Signs Vital Sign Reading Time Taken Comments Blood Pressure 124/60 03/14/2024 2:55 PM EDT Pulse 88 03/14/2024 2:55 PM EDT Temperature - - Respiratory Rate - - Oxygen Saturation 98% 03/14/2024 2:55 PM EDT Inhaled Oxygen Concentration - - Weight 77.8 kg (171 lb 9.6 oz) 03/14/2024 2:55 P M EDT Height 160 cm (5' 3 ) 11/24/2019 12:00 PM EST Body Mass Index 30.4 11/24/2019 12:00 PM EST Plan of Treatment Upcoming Encounters Date Type Department Care Team (Late st Contact Info) Description 04/18/2025 4:00 PM EDT Office Visit [facility] [address] [id number] Ke Ledezma MD [address] [address] Health Maintenance Due Date Last Done Comments Hepatitis B Vaccine (1 of 3 - 19+ 3-dose series) 01/0802/24/2023 Pneumococcal Vaccine: Peds ( 0 to 5 Years) and At-Risk Patients (6 to 49 Years) (1 of 2 - PCV) 01/08/1999 Influenza Vaccine (#1) 2025 12/14/2018 Care Teams Food Safety Coordinator Relationship Specialty Start Date End Date Yulisa Brewster DO [address] [place] [id number] PCP - General 10/07/20
[2025-04-02 11:22] LABS: MANUAL DIFF FLAG NO
[2025-04-02 11:32] LABS: Hematocrit 39.7 % (37.0-47.0); Hemoglobin 13.3 g/dl (12.0-16.0); Imm Gran Abs Auto 0.03 X10*3/uL (0.00-0.03); Imm Gran Pct Auto 0.4 % (0.0-0.4); Lymphocytes Absolute Auto 2.9 X10*3/uL (1.2-4.9); Mean Corpuscular HGB Conc 33.5 g/dl (31.0-35.0); Mean Corpuscular Hemoglobin 28.5 pg (27.0-33.0); Mean Corpuscular Volume 85.2 fL (80.0-98.0); NRBC Abs Auto 0.000 X10*3/uL (0.0-0.012); NRBC Pct Auto 0.0 /100WBC (0.0-0.2); Platelet Count 188 X10*3/uL (160-400); Red Blood Count 4.66 X10*6/uL (4.20-5.50); White Blood Count 6.9 X10*3/uL (4.8-10.8)
[2025-04-02 13:59] LABS: Anion Gap 14 (12-20)
[2025-04-02 14:04] LABS: Alanine Aminotransferase 32 U/L (0-31); Albumin Level 4.2 g/dL (3.5-5.0); Alkaline Phosphatase 110 U/L (39-117); Aspartate Amino Transferase 30 U/L (5-31); Blood Urea Nitrogen 34 mg/dL (9-16); Calcium 9.4 mg/dL (8.4-10.2); Carbon Dioxide 23 mmol/L (22-29); Chloride 110 mmol/L (96-108); Cholesterol 224 mg/dL (<200); Estimated Glomerular Filt Rate 19; HDL Cholesterol 48 mg/dL (>40); Potassium 4.8 mmol/L (3.3-5.1); Sodium 142 mmol/L (135-145); Total Protein 7.5 g/dL (6.5-8.0); Triglycerides 183 mg/dL (<150)
[2025-04-02 15:21] LABS: Microalbum/Creatinine Ratio Ur 1264.3 ug/mg cr (<30)
== END 2025-04-02 08:41 | disposition home or self-care (01) ==
LOC: HO.HHCL 08:40
PROVIDERS: PCP Nurse Practitioner; Visit Provider Nurse Practitioner
DX: N18.4 Chronic kidney disease, stage 4 (severe) (principal); E66.3 Overweight
CPT/HCPCS: 36415; 80053; 80061; 82043; 82306; 82570; 85025

== ENCOUNTER 2025-06-29 15:07 | Outpatient (AMB) | payer MEDICAID, SELFPAY ==
--- OUTSIDE RECORDS SUMMARY | 2025-06-27 15:15 | XMS_ITS | Encounter Summary ---
Author Organization [employer] Address [address] [place] [address] 7 [place] [address] Care Team Providers Care Rn Behavioral Health Name Role Phone Samreen Pacheco NP Primary Care Provider [phone] Reason for Referral * Consultation (Routine) - Authorized Specialty Diagnoses / Procedures Referred By Conttravis t Referred To Contact Nephrology Diagnoses CKD stage G4/A3, GFR 15-29 and albumin creatinine ratio >300 mg/g (CMS/HCC) ([facility]) Samreen Pacheco NP [address] [place] [address] Phone: tel: fax: [facility] [address], [address] [place] [address] Phone: tel: fax: Referral ID Status Reason Start Date Expiration Date Visits Requested Visits Authorized [id number] Authorized Specialty Services Required 06/28/2025 06/28/2026 6 6 Encounter Details Date Type Department Care Team (Late st Contact Info) Description 06/27/2025 3:15 PM EDT Office Visit [facility] [address] [place] [address] Samreen Pacheco NP [address] [place] [address] Hypertensive urgency (Primary Dx); CKD stage G4/A3, GFR 15-29 and albumin creatinine ratio >300 mg/g (CMS/HCC) ([facility]) Social History Tobacco Use Types [...] information being discussed in his presence. HPI Rosario Mistry reports improvement in her mood since [...] 15-29 and albumin creatinine ratio >300 mg/g ([facility]/HCC) ([facility]) Relevant Orders Referral to Nephrology Other Visit Diagnoses Hypertensive urgency - Primary -patient is encouraged to go to ED for emergency evaluation given elevated readings and symptoms -expect called to [facility] ED. patient traveling by private car Relevant Orders ECG 12 lead (Completed) Follow-up: 1 month or sooner as needed Maori Translation: Provided by [facility] staff member ARMINDA Diaz [1] Current Outpatient [...] 15-29 and albumin creatinine ratio >300 mg/g ([facility]/HCC) ([facility]) Urinary tract obstruction Uncontrolled hypertension Stage 3b chronic kidney disease (CMS/HCC) ([facility]) Renal stone Renal osteodystrophy Edema of both lower legs Hypertensive disorder Moderately severe depression Chest pain Moderate anxiety documented in this encounter Plan of Treatment Upcoming Encounters Date Type Department Care Team (Late st Contact Info) Description 08/06/2025 3:15 PM EST Office Visit [facility] [address] [place], [place] [phone] Samreen Pacheco NP [address] [place], [place] [phone] Scheduled Referrals Name Type Priority Associated Diagnoses Order Schedule Referral to Nephrology Outpatient Referral Routine CKD stage G4/A3, GFR 15-29 and albumin creatinine ratio >300 mg/g ([facility]) Expected: 06/27/2025 (Approximate), Expires: 06/27/2026 [...] 15-29 and albumin creatinine ratio >300 mg/g ([facility]/HCC) ([facility]) documented in this encounter Additional Health Concerns Assessment Noted Time PHQ-9 Depression Total Score: 22 06//2 025 4:10 PM EDT documented as of this encounter Care Teams Rn Behavioral Health Relationship Specialty Start Date End Date Samreen Pacheco NP [address] [place] [address] PCP - General Family Medicine 07/06/23 documented as of this encounter
--- OUTSIDE RECORDS SUMMARY | 2025-06-29 15:10 | XMS_ITS | Clinical Summary ---
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 cefdinir (Omnicef) 300 MG capsule Take 300 mg by mouth 2 times daily. 4 Active oxyCODONE (Roxicodone) 5 MG immediate release tablet TAKE 1 TABLET EVERY BY MOUTH EVERY 4 TO 6 HOURS NEEDED 4 Active amLODIPine (Norvasc) 10 MG tabletIndications :Uncontrolled hypertension Take 1 tablet by mouth qam 30 tablet 1 4 Active Jardiance 10 MGIndications:Sta ge 3 chronic kidney disease, unspecified whether stage 3a or 3b CKD (CMS/HCC) (HCC) TAKE 1 TABLET (10 MG) BY MOUTH IN THE MORNING FOR 30 DOSES. 90 tablet 4 Active labetalol (Normodyne) 100 MG tabletIndications :Uncontrolled hypertension TAKE 0.5 TABLETS (50 MG) BY MOUTH 2 TIMES DAILY. 90 tablet 4 Active sertraline (Zoloft) 25 MG tabletIndications :Depression, unspecified depression type TAKE 2 TABLETS (50 MG TOTAL) BY MOUTH EVERY MORNING. 60 tablet 1 4 Active D3-1000 25 MCG (1000 UT) capsuleIndication s:Hypovitaminosis D TAKE 1 CAPSULE (25 MCG) BY MOUTH ONCE PER DAY. 90 capsule 1 4 Active losartan (Cozaar) 25 MG tabletIndications :Uncontrolled hypertension TAKE 1 TABLET BY MOUTH EVERY DAY IN THE MORNING 90 tablet 1 4 Active Multiple Vitamin (Daily-Cy Multivitamin) tabletIndications :Poor diet TAKE 1 TABLET BY MOUTH EVERY DAY IN THE MORNING 90 tablet 1 4 Active buPROPion XL (Wellbutrin XL) 150 MG 24 hr tabletIndications :Episode of recurrent major depressive disorder, unspecified depression episode severity (CMS/HCC) Take 1 tablet (150 mg) by mouth in the morning for 3 days, THEN 2 tablets (300 mg) in the morning for 27 days. Take 1 tablet by mouth daily for 3 days and increase to 1 tab two times daily Do not crush, chew, or split. 57 tablet 5 Active Active Problems Problem Noted Date Diagnosed Date Moderate anxiety 03/20/2025 Chest pain 12/13/2023 Assessment & Plan (12/22/2023 6:41 PM EDT): -patient presenting with atypical chest pain -likely due to uncontrolled hypertension -12 lead EKG today without acute findings -referral to cardiology placed for further testing in the setting uncontrolled hypertension -reviewed red flags for seeking emergency assistance Edema of both lower legs 02/24/2023 Assessment & Plan (02/24/2023 11:18 AM EDT): DDx: venous insuficiency, CKD, hypoalbuminemia Uncontrolled hypertension 02/11/2023 Assessment & Plan (05/30/2025 1:22 PM EDT): -not taking medications as prescribed due to mental health challenges -will seek out BP assistance for mental health treatment to ensure successful overall health -encouraged restarting BP medications which she reports having adequate supply at home -monitoring labs ordered Assessment & Plan (04/06/2024 10:17 AM EDT): -BP above target goal of <130/80 mmHg -continue amlodipine 10 mg, losartan 25 mg. -start labetalol 50 mg two times daily -microalbumin: severe proteinuria; continue to follow-up with nephrology -ASCVD risk: will calculate at follow-up after obtaining lipid levels -daily BP monitoring advised -encouraged no salt diet -30 min moderate intensity daily exercise strongly encouraged -Reviewed ED precautions to include chest pain, shortness of breath, severe headache, sudden vision changes or BP >=180/>=120 mmHg. -Call clinic if three or more BP readings >130/80 mmHg. -BMP ordered -follow-up 3 months Assessment & Plan (12/22/2023 6:42 PM EDT): -BP goal of 140/80 not met -BP log provided and advised self monitoring two times daily -patient only taking furosemide 20 mg daily -restart amlodipine 5 mg today. Return for nurse visit in 1 week for BP check. If systolic persistently over 170, increase amlodipine dose to 10 mg -low salt diet and daily exercise strongly encouraged -vision referral placed -labs ordered -will consider adding MINDY/ARB pending lab results for renal protection in the setting of CKD -advised discontinuation of furosemide -follow-up 1 week for nurse visit Assessment & Plan (02/24/2023 12:32 PM EDT): BP 166/82 before leaving clinic. Hypertension not [...] dash diet and sent referral to nutrition. Assessment & Plan (02/11/2023 4:07 PM EDT): Patient of Giselle PICKETTP, significan Hx of CKD stage 3b and HTN . here for a sick visit after she complained of persistently elevated blood pressure. Apparently patient ran out of medications months ago and has not been taking anything. Today she denies any chest pain, no headache, no other associated symptoms. On exam BP initially 194/97 ( taken by my MA). On repeat 180/86 taken by me. Uncontrolled HTN mainly due to non adherence to medications Plan: Clonidine 0.1 mg po x1 now. 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 EKG : NSR, HR 76 bpm, no acute st t changes follow up with PCP in 3 weeks Hypertensive disorder 02/11/2023 09/17/2023 Overview (09/17/2023): Last Assessment & Plan: BP 166/82 before [...] osteodystrophy 04/07/2022 Stage 3b chronic kidney disease ([facility]) 2020 Assessment & Plan (02/24/2023 11:19 AM EDT): Last BMP I could find was 03/31/2019 EGFR = 27 Creatinine = 2.05 Ordered CMP Renal stone 12/16/2020 Urinary tract obstruction 12/12/2018 Moderately severe depression 12/12/2018 Assessment & Plan (05/30/2025 1:20 PM EDT): -not taking sertraline as prescribed -discussed initiation of wellbutrin to assist with smoking cessation as well and patient is agreeable - clinician consulted to speak with patient and assist with services Assessment & Plan (03/20/2025 8:12 AM EDT): >>ASSESSMENT AND PLAN FOR MODERATE MAJOR DEPRESSION, SINGLE EPISODE ([facility]) WRITTEN ON 02/11/2023 4:08 PM BY LINDA LORD MD Pt has a history of depression, currently denies any SI. PHQ9 16 Will ask our [facility] clinician to contact her Assessment & Plan (04/06/2024 10:12 AM EDT): -significant improvement in PhQ9 score as compared to 1 month ago -Patient Health Questionnaire-9 Score: 8 (01/12/2024 2:34 PM) Patient Health Questionnaire-2 Score: 2 (01/12/2024 2:34 PM) -patient is agreeable to medication dose increase. start sertraline to 50 mg every day today -advised on the benefits of engaging in gentle yoga practices, meditation, deep breathing and journaling along with physical activity to aid in symptom improvement -will assess progress at follow-up visit Assessment & Plan (12/13/2023 5:20 AM EDT): -PHQ-9 score 24 -declines to speak with clinician today -start sertraline 25 mg today. Will consider dose increase following televisit -follow-up in 2 weeks via televisit CKD stage G4/A3, GFR 15-29 a nd albumin creatinine ratio >300 mg/g ([facility]) 08/05/2012 Assessment & Plan (05/30/2025 1:15 PM EDT): -lost to care with nephrology -encouraged to call for an appointment now that insurance is active again Assessment & Plan (04/06/2024 10:05 AM EDT): -severe renal impairment secondary to uncontrolled hypertension and frequent kidney stones -patient pending nephrology appointment -labs ordered to evaluate for metabolic deficiencies secondary to impaired renal status -will start jardiance 10 mg for renal protection while waiting to see nephrology -cautioned against NSAID and non-prescription medication use -med list reviewed for renal dosing Assessment & Plan (12/22/2023 6:44 PM EDT): -labs ordered to eval kidney function in light of recent procedure with urology -patient with uncontrolled hypertension and CKD stage 3 -eval for anemia secondary to poor kidney fx -labs reveal significant proteinuria with decreased GFR -prescription for jardiance sent to pharmacy. Patient advised to monitor for UTI and yeast symptoms -consider referral to nephrology -will call with labs Resolved Problems Problem Noted Date Diagnosed Date Resolved Date Edema of right lower leg 02/24/2023 Assessment & Plan (02/24/2023 10:52 AM EDT): Left leg measures at the ankle 8 3 Right leg measures at the ankle 9 1 Encounters Date Type Department Care Team Description 06/27/2025 3:15 PM EDT Office Visit [facility] [address] [place] [phone] Samreen Pacheco NP Hypertensive urgency (Primary Dx); CKD stage G4/A3, GFR 15-29 and albumin creatinine ratio >300 mg/g (CMS/HCC) (HCC) 06/27/2025 Travel 05/30/2025 Results Follow-Up [facility] [address] [place] [address] Samreen Pacheco NP Comprehensive Metabolic Panel, Albumin, Random Urine W/Creatinine, Vitamin D, 25-Hydroxy, Total, Immunoassay, Additional followed-up results: 2 05/08/[address] [address] Joe Bennett [place] June recall from Last 3 Months Immunizations Immunization Administration Dates Next Due Hep B, adult 03/19/2025,02/24/2023 Influenza injectable quadrivalent preservative f ree 12/14/2018 Pfizer Covid-19 Vaccine 12+ 05/03/2021, Social History Tobacco Use Types Packs/Day Years [...] Orientation Straight 07/27/2022 10 :22 AM EDT Last Filed Vital Signs Vital Sign Reading [...] Mass Index 29.52 06/27/2025 3:32 PM EDT Plan of Treatment Upcoming Encounters Date Type Department Care Team (Late st Contact Info) Description 08/06/2025 3:15 PM EST Office Visit [facility] [address] [place] [address] Samreen Pacheco NP [address] [place] [address] Health Maintenance Due Date Last Done Comments CT Colonography 1980 Colonoscopy 1980 Colorectal Cancer Screening 1980 FIT DNA/Cologuard 1980 FIT 1980 FOBT 1980 Sigmoidoscopy 1980 Family Planning (PISQ) 01/08/1995 HPV Vaccines (1 - 3-dose series) 01/08/1995 DTaP/Tdap/Td Vaccines (1 - Tdap) 01/08/1999 Mammogram 2020 Hepatitis B Vaccines (3 of 3 - 19+ 3-dose series) 05/14/2025 03/19/2025, 02/24/2023 COVID-19 Vaccine (3 - 2024-2 6 season) 2025 05/03/2021, 04/11/2021 Influenza Vaccine (#1) 2025 9, 07/14/2012 Depression Monitoring 09/18/2025 03/19/2025 , 03/19/2025 Alcohol/Substance Use Screening 03/19/2026 03/19/2025 Disability Screening 03/19/2026 03/19/2025 SDOH Screening 03/19/2026 03/19/2025 Tobacco Screening 06/27/2026 06/27/2025 Cervical Cancer Screening 02/11/2028 HPV/Cotest 02/11/2028 02/10/2023 Pap Smear 02/11/2028 02/10/2023 Zoster Vaccines (1 of 2) 01/08/2030 Lipid Panel 04/02/2030 04/02/2025 RSV Patients and Patients Aged 60 years or older (1 - 1-dose 75+ series) 01/08/2055 HIV Screening Completed 02/10/2023 Hepatitis C Screening Completed 02/10/2023 HIB Vaccines Aged Out No longer eligi ble based on patient's age to complete this topic Hepatitis A Vaccines Aged Out No long er eligible based on patient's age to complete this topic IPV Vaccines Aged Out No longer eligi ble based on patient's age to complete this topic Meningococcal B Vaccine Aged Out No l onger eligible based on patient's age to complete this topic Meningococcal Vaccine Aged Out No laly mitchel eligible based on patient's age to complete this topic Pneumococcal Vaccine: Pediatrics (0 to 5 Years) and At-Risk Patients (6 to 49) Years Aged Out No longer eligible b ased on patient's age to complete this topic RSV under 20 months Aged Out No longe r eligible based on patient's age to complete this topic Rotavirus Vaccines Aged Out No longer eligible based on patient's age to complete this topic Procedures Procedure Name Priority Date/Time Associated Diagnosis Comments ECG 12-LEAD Routine 06/27/2025 6:06 PM EDT Hypertensive urgency LIPID PANEL, STANDARD Routine 04/02/2025 8:44 AM EDT Overweight (BMI 25.0-29.9) CBC WITH AUTO DIFFERENTIAL Routine 04/02/2025 8:44 AM EDT CKD stage G4/A3, GFR 15-29 and albumin creatinine ratio >300 mg/g (CMS/HCC) VITAMIN D,25-OH,TOTAL,IA Routine 04/02/2025 8:44 AM EDT CKD stage G4/A3, GFR 15-29 and albumin creatinine ratio >300 mg/g (CMS/HCC) ALBUMIN, RANDOM URINE W/CREATININE Routine 04/02/2025 8:44 AM EDT CKD stage G4/A3, GFR 15-29 and albumin creatinine ratio >300 mg/g (CMS/HCC) COMPREHENSIVE METABOLIC PANEL Routine 04/02/2025 8:44 AM EDT Overweight (BMI 25.0-29.9) HEPATITIS C AB W/REFL TO HCV RNA, QN, PCR Routine 02/10/2023 11:42 AM EDT Encntr screen for infections w sexl mode of transmiss HIV 1/2 ANTIGEN/ANTIBODY, FOURTH GENERATION W/RFL Routine 02/10/2023 11:42 AM EDT Encntr screen for infections w sexl mode of transmiss IMAGE-GUIDED PAP W/AGE BASED SCR,W/CT/NG/TRICH Routine 02/10/2023 11:27 AM EDT Cervical cancer screening Encntr screen for infections w sexl mode of transmiss from Last 3 Months or Most Recently Relevant to Health Maintenance Results * ECG 12 lead (06/27/2025 6:06 PM EDT) Narrative Samreen Pacheco NP - 06/27/2025 6:06 PM EDT HR 65 bpm, no ST changes; sinus arrhythmia EKG Samreen Pacheco NP ECG ORDERABLES Final Result * (ABNORMAL) Vitamin D, 25-Hydroxy, Total, Immunoassay (04/02/2025 8:44 AM EDT) Vitamin D 25-OH Total 24.4(L) >30 ng/mL [facility] Comment: Health Based Reference Values*< 20 ng/mL Kbikdkgqi72-85 ng/mL Insufficient> 30 ng/mL Sufficient*Travon FINNEY. N Engl J Med. 2007;357:266-280There is no well-established upper level of normal vitamin Dlevels. Some laboratories use 50 ng/mL as an upper limit ofnormal. However, toxicity is patient-dependent and may occurat any level. Careful correlation with the patient'spresentation is necessary and, if there is concern forvitamin D toxicity, treatment should be consideredirrespective of the serum level.Care must be taken in interpreting Vitamin D results fromdifferent laboratories and methodologies. Published datademonstrated that results from patients undergoinghemodialysis may show a negative bias when tested withvarious automated 25-OH vitamin D assays when compared toLC-MS/MS.When testing samples from patients whose predominant form ofVitamin D is Vitamin D2, such as patients receiving VitaminD2 supplementation, results that are subtherapeutic shouldbe confirmed with another method such as LC-MS/MS. Blood Venous blood specimen / Unknown 04/02/2025 8:44 AM EDT 04/02/2025 11:17 AM EDT Samreen Pacheco NP LAB BLOOD ORDERABLES Final Resu lt [facility] [address] [place] [address] [phone] * (ABNORMAL) Albumin, Random Urine W/Creatinine (04/02/2025 8:44 AM EDT) Creatinine, Urine 125.44 mg/dL [facility] Microalbumin Urine 1,586.0 mg/L [facility] Microalbum Creatinine Ratio Ur 1,264.3(H ) <30 ug/mg cr [facility] Comment:Albumin/Creatinine R atio Reference Ranges: Normal: < 30 ug/mg creatinine Microalbuminuria: 30 - 300 ug/mg creatinineClinical Albuminuria: > 300 ug/mg creatinine Urine (Urine, Random) 04/02/2025 8:44 AM EDT 04/02/2025 11:16 AM EDT Samreen Hernandez SOCIAL SERVICE LIAISON LAB URINE ORDERABLES Final Resu lt Performing Organization Address [facility]/ZIP Co de Phone Number [facility] [address] [place] [address] [phone] * (ABNORMAL) CBC auto differential (04/02/2025 8:44 AM EDT) White Blood Count 6.9 4.8 - 10.8 X10*3/uL [facility] Red Blood Count 4.66 4.20 - 5.50 X10*6/uL [facility] Hemoglobin 13.3 12.0 - 16.0 g/dl [facility] Hematocrit 39.7 37.0 - 47.0 % [facility] Mean Corpuscular Volume 85.2 80.0 - 98.0 fL [facility] Mean Corpuscular Hemoglobin 28.5 27.0 - 33.0 pg [facility] Mean Corpuscular HGB Conc 33.5 31.0 - 35.0 g/dl [facility] Red Cell Distribution Width 14.7 11.0 - 16.0 % [facility] Platelet Count 188 160 - 400 X10*3/uL [facility] Mean Platelet Volume 11.3 9.4 - 12.3 fL [facility] Neutrophils Percent Auto 46.1 45 - 73 % [facility] Imm Gran Pct Auto 0.4 0.0 - 0.4 % [facility] Lymphocytes Percent Auto 41.5(H) 20 - 40 % [facility] Monocytes Percent Auto 8.0 2 - 11 % [facility] Eosinophils Percent Auto 3.1 0 - 4 % [facility] Basophils Percent Auto 0.9 0 - 2 % [facility] NRBC Pct Auto 0.0 0.0 - 0.2 /100WBC [facility] Neutrophils Absolute Auto 3.2 2.0 - 8.3 x10*3/uL [facility] Imm Gran Abs Auto 0.03 0.00 - 0.03 X10*3/uL [facility] Lymphocytes Absolute Auto 2.9 1.2 - 4.9 X10*3/uL [facility] Monocytes Absolute Auto 0.6 0.1 - 1.2 X10*3/uL [facility] Eosinophils Absolute Auto 0.2 0.0 - 0.4 X10*3/uL [facility] Basophils Absolute Auto 0.1 0.0 - 0.2 X10*3/uL [facility] NRBC Abs Auto 0.000 0.0 - 0.012 X10*3/uL [facility] Blood Venous blood specimen / Unknown 04/02/2025 8:44 AM EDT 04/02/2025 11:17 AM EDT us Samreen Pacheco SOCIAL SERVICE LIAISON LAB BLOOD ORDERABLES Final Resu lt [facility] [address] [place] [address] [phone] * (ABNORMAL) Lipid Panel, Standard (04/02/2025 8:44 AM EDT) Triglycerides 183(H) <150 mg/dL [facility] Comment:Desirable Triglyceri de: less than 150 mg/dLBorderline High Triglyceride 150-199 mg/dLHigh Triglyceride: 200-499 mg/dLVery High Triglyceride: greater than or equal to 5OO mg/dL Cholesterol 224(H) <200 mg/dL [facility] Comment:Desirable Cholestero l: less than 200 mg/dLBorderline High Cholesterol: 200-239 mg/dLHigh Cholesterol: greater than 239 mg/dL LDL Cholesterol Calculated 140(H) <100 mg/dL [facility] Comment:Desirable LDL: less than 100 mg/dLNear Optimal/Above Optimal LDL: 110- 129 mg/dLBorderline High LDL: 130-159 mg/dLHigh LDL: 160-189 mg/dLVery High LDL: greater than or equal to 190 mg/dL HDL Cholesterol 48 >40 mg/dL [facility] Comment:Desirable HDL: great er than 40 mg/dL Note: This HDL assay may give artificially low results in patients with liver disease. Blood Venous blood specimen / Unknown 04/02/2025 8:44 AM EDT 04/02/2025 11:17 AM EDT us Samreen Pacheco SOCIAL SERVICE LIAISON LAB BLOOD ORDERABLES Final Resu lt [facility] [address] [place] [phone] * (ABNORMAL) Comprehensive Metabolic Panel (04/02/2025 8:44 AM EDT) Sodium 142 135 - 145 mmol/L [facility] Potassium 4.8 3.3 - 5.1 mmol/L [facility] Chloride 110(H) 96 - 108 mmol/L [facility] Carbon Dioxide 23 22 - 29 mmol/L [facility] Anion Gap 14 12 - 20 [facility] Urea Nitrogen (BUN) 34(H) 9 - 16 mg/dL [facility] Creatinine, Serum 2.76(H) 0.5 - 1.4 mg/dL [facility] Estimated Glomerular Filt Rate 19 [facility] Comment:Chronic Kidney Disea se: Estimated GFR < 60 mL/min/1.97a7Cukzmk Kidney Disease: Estimated GFR < 15 mL/min/1.73m2 Glucose 91 60 - 115 mg/dL [facility] Calcium 9.4 8.4 - 10.2 mg/dL [facility] Bilirubin, Total 0.5 0.0 - 1.0 mg/dL [facility] Aspartate Amino Transferase 30 5 - 31 U/L [facility] Alanine Aminotransferase 32(H) 0 - 31 U/L [facility] Total Protein 7.5 6.5 - 8.0 g/dL [facility] Albumin Level 4.2 3.5 - 5.0 g/dL [facility] Alkaline Phosphatase 110 39 - 117 U/L [facility] Blood Venous blood specimen / Unknown 04/02/2025 8:44 AM EDT 04/02/2025 11:17 AM EDT Samreen Pacheco SOCIAL SERVICE LIAISON LAB BLOOD ORDERABLES Final Resu lt [facility] [address] [place] [address] [phone] * Hepatitis C Antibody with Reflex to HCV, RNA, Quantitative, Real-Time PCR (02/10/2023 11:42 AM EDT) Hepatitis C Antibody NON-REACT HARSHAD NON-REACT HARSHAD [facility] [place] [employer] Effect Index 0.03 <1.00 [facility] [place] [employer] Comment: HCV antibody was non-reactive. There is no laboratory evidence of HCV infection. In most cases, no further action is required. However, if recent HCV exposure is suspected, a test for HCV RNA (test code 54241) is suggested. For additional information please refer to http://education.OnePageCRM/faq/YMQ16b0 (This link is being provided for informational/ educational purposes only.) Blood Venous blood specimen / Unknown 02/10/2023 11:42 AM EDT 02/10/2023 11:43 AM EDT Narrative [facility] - 02/12/2023 4:32 PM EDT FASTING:NO FASTING: NO Fatou Colby [facility] LAB BLOOD ORDERABLES Benita blackmon Result [facility] [address], [place] [address] [facility] [place] [facility] [address] [place] [address] * HIV-1/2 Antigen and Antibodies, Fourth Generation, with Reflexes (02/10/2023 11:42 AM EDT) HIV Antigen/Antibody, 4th Generation NON-REAC TIVE NON-REAC TIVE [facility] [place] [employer] Comment: HIV-1 antigen and HIV-1/HIV-2 antibodies were not detected. There is no laboratory evidence of HIV infection. PLEASE NOTE: This information has been disclosed to you from records whose confidentiality may be protected by state law. If your state requires such protection, then the state law prohibits you from making any further disclosure of the information without the specific written consent of the person to whom it pertains, or as otherwise permitted by law. A general authorization for the release of medical or other information is NOT sufficient for this purpose. For additional information please refer to http://education.OnePageCRM/faq/JWJ190 (This link is being provided for informational/ educational purposes only.) The performance of this assay has not been clinically validated in patients less than 2 years old. Blood Venous blood specimen / Unknown 02/10/2023 11:42 AM EDT 02/10/2023 11:43 AM EDT Narrative [facility] - 02/12/2023 4:32 PM EDT FASTING:NO FASTING: NO Fatou GUNDERSON LAB BLOOD ORDERABLES Benita l Result [facility] [address], [place] [address] [employer] [place] [employer] [address] [place] [address] * Image-Guided Pap with Age-Based Screening??with CT/NG,??Trichomonas (02/10/2023 11:27 AM EDT) Comment [facility] Comment: This order for age-based cervical cancer and STI screening follows ACOG guidelines(PB 168, 140, NZT478). See individual assays for performing site location. Clinical Information: RTN SCREEN [employer] [facility] LMP: NONE GIVEN [employer] [facility] Prev. PAP: NONE GIVEN [employer] [facility] Prev. BX: NONE GIVEN [employer] [facility] SOURCE: None given [facility] Statement Of Adequacy: [employer] Comment: Satisfactory for evaluation. Endocervical/transformation zone component absent. Interpretation/Re sult: Negative for intraepithelial lesion or malignancy. [facility] Infection Shift in vaginal hui suggestive of bacterial vaginosis. [facility] COMMENT: This Pap test has been evaluated with computer assisted technology. [facility] Call Or Contact Centre Coach: [employer] Comment: DCR, CT(ASCP) CT screening location: [place] [address] Review Call Or Contact Centre Coach: [facility] Comment: [facility], CT(ASCP) CT screening location: [place] [address] (Always Message) Que st [employer] Comment: EXPLANATORY NOTE: The Pap is a screening test for cervical cancer. It is not a diagnostic test and is subject to false negative and false positive results. It is most reliable when a satisfactory sample, regularly obtained, is submitted with relevant clinical findings and history, and when the Pap result is evaluated along with historic and current clinical information. HPV nRNA E6/E7 Not Detected Not Detected [facility] Comment: Methodology: Comfort Filler-Mediated Amplification This assay detects E6/E7 viral messenger RNA (mRNA) from 14 high-risk HPV types (16,18,31,33,35,39,45,51,52,56,58,59,66,68). Cervical sources are required for HPV testing. If a vaginal source from a patient who has had a total hysterectomy with removal of cervix was submitted, please contact the testing laboratory for alternative testing options. For additional information, please refer to http://[email or web address].OnePageCRM/faq/VWC698a9 (This link if provided for information/ educational purposes only.) Chlamydia trachomatis RNA, TMA, Urogenital NOT DETECTED NOT DETECTED [employer] Neisseria gonorrhoeae RNA, TMA, Urogenital NOT DETECTED NOT DETECTED [facility] [place] [employer] [facility] [employer] (Always Message) [facility] [place] [employer] [facility] Comment: The analytical performance characteristics of this assay, when used to test SurePath(TM) specimens have been determined by [facility]. The modifications have not been cleared or approved by the FDA. This assay has been validated pursuant to the CLIA regulations and is used for clinical purposes. For additional information, please refer to https://Whyd/faq/BLS233 (This link is being provided for information/ educational purposes only.) Trichomonas vaginalis, QL, TMA, PAP Vial NOT DETECTED NOT DETECTED [employer] Comment: The analytical performance characteristics of this assay have been determined by [facility]. The modifications have not been cleared or approved by the FDA. This assay has been validated pursuant to the CLIA regulations and is used for clinical purposes. For additional information, please refer to http://Whyd/ faq/Trichomonastma (This link is being provided for information/ educational purposes only.) Pap Vial 02/10/2023 11:2 7 AM EDT 02/11/2023 7:10 AM EDT us [facility] ORDER[facility] F inal Result [facility] [address], [place] [address] [facility] [place] [facility] [address] [place] [address] from Last 3 Months or Most Recently Relevant to Health Maintenance Insurance [place] [id number] [place] [address] C3 Care Teams Lighting Fixture Installer Relationship Specialty Start Date End Date Samreen Pacheco NP [address] [place] [address] PCP - General Family Medicine 07/06/23
--- OUTSIDE RECORDS SUMMARY | 2025-06-29 15:10 | XMS_ITS | Clinical Summary ---
Author Organization [facility] Address [facility] [address] Phone Care Team Providers Care Campus Coordinator Name Role Phone Yulisa Brewster DO [...] any SI. [phone] [facility] clinician to contact her Encounters Date Type Department Care Team Description 04/18/2025 Office Communication [facility] [address] [address] Carley Sutton [place] from Last 3 Months Immunizations Immunization Administration Dates Next Due Hepatitis [...] 11/24/2019 12:00 PM EST Plan of Treatment Health Maintenance Due Date Last Done Comments Hepatitis B Vaccine (1 of 3 - 19+ 3-dose series) 01/08/1999 03/19/2025, 02/24/2023 Pneumococcal Vaccine: Peds ( 0 to 5 Years) and At-Risk Patients (6 to 49 Years) (1 of 2 - PCV) 01/08/1999 Influenza Vaccine (#1) 2025 12/14/2018 Care Teams Campus Coordinator Relationship Specialty Start Date End Date Yulisa Brewster DO [address] [place] [address] PCP - General 10/07/20
--- OUTSIDE RECORDS SUMMARY | 2025-06-29 15:10 | XMS_ITS | Encounter Summary ---
Author Organization [employer] Address [address] [facility] 7t [place] [address] Care Team Providers Care Safety Coordinator Name Role Phone Samreen Pacheco ARACELI Primary Care Provider [phone] Encounter Details Date Type Department Care Team (Latest Contact Info) Description 06/27/2025 Travel Social History Tobacco Use Types Packs/Day Years [...] as of this encounter Plan of Treatment Upcoming Encounters Date Type Department Care Team (Late st Contact Info) Description 08/06/2025 3:15 PM EST Office Visit [facility] MED[facility]INE [address] [place] [address] Samreen Pacheco NP [address] [place] [address] documented as of this encounter Visit Diagnoses Not on filedocumented in this encounter Additional Health Concerns Assessment Noted Time PHQ-9 Depression Total Score: 22 025 4:10 PM EDT documented as of this encounter Care Teams Safety Coordinator Relationship Specialty Start Date End Date Samreen Pacheco NP [address] [place] [address] PCP - General Family Medicine 07/06/23 documented as of this encounter
--- OUTSIDE RECORDS SUMMARY | 2025-06-29 15:10 | XMS_ITS | Encounter Summary ---
Author Organization [employer] [facility] Address [address] [place] [address] [place] [address] Care Team Providers Care Underwriting Support Manager Name Role Phone Michael Campbell MD Primary Care Provider Giselle Bermudez Primary Care Provider Samreen Gilmore NP Primary Care Provider [phone] Encounter Details Date Type Department Care Team (Latest Contact Info) Description 02/16/2019 Abstract [facility] CONVERSIONS Dental, Provider, DDS Social History Tobacco Use Types Packs/Day Years Used Date Smoking Tobacco: Never Assessed Comments Unknown Sex and Gender Information Value [...] Description 08/06/2025 3:15 PM EST Office Visit [facility] MED[facility]INE [address] [place] [address] aSmreen Pacheco NP [address] [place] [address] documented as of this encounter Visit Diagnoses Not on filedocumented in this encounter Care Teams Underwriting Support Manager Relationship Specialty Start Date End Date Michael Campbell MD PCP - General Family Medicine 07/05/19 08/23/22 Giselle Hamlin FNP PCP - General Family Medicine 08/24/22 07/05/23 Samreen Pacheco NP [address] [place] [address] PCP - General Family Medicine 07/06/23 documented as of this encounter
--- OUTSIDE RECORDS SUMMARY | 2025-06-29 15:10 | XMS_ITS | Encounter Summary ---
Author Organization [employer] Address [address] [facility] 7t [place] [address] Care Team Providers Care Engine Mechanic Name Role Phone Samreen Pacheco NP Primary Care Provider [phone] Encounter Details Date Type Department Care Team ([facility] st Contact Info) Description 11/22/2023 Telephone [facility] MEDICINE [address] [place], [place] [phone] Samreen Pacheco NP [address] [place] [address] Social History Tobacco Use Types Packs/Day Years Used Date Smoking Tobacco: Never Passive Smoke Exposure: Never Smokeless Tobacco: Never Alcohol Use Standard Drinks/Week Comments Never 0 (1 standard drink = 0.6 oz pur e alcohol) Depression Answer Date Recorded Patient Health Questionnaire-9 Score 24 11/26/2023 Patient Health Questionnaire-9 Score 24 11/26/2023 Last PHQ-9: Questionnaire Data Not on file 0 11/26/2023 Housing Stability Answer Date Recorded What is [...] Date Recorded Patient Health Questionnaire-2 Score 6 11/26/2023 Comments No Sex and Gender Information Value Date Recorded Sex Assigned at Female 07/27/2022 10:22 AM EDT Legal Sex Female 10:22 AM EDT Gender Identity Female 07/27/2022 10:22 AM EDT Sexual Orientation Straight 07/27/2022 10 :22 AM EDT documented as of this encounter Miscellaneous Notes * Telephone Encounter - Greg Burgos RN - 11/23/2023 9:53 AM EST T/C to pt. For below message through [employer] id - [id number] for below message and status check, pt. States she is doing O.K. pt. Does not has any new symptoms right now, advised to go to nearest ED in case of any new or worsening symptoms including CP, SOB or breathing problem.. [facility] hours are informed. Operative notes are scanned into pt.'s chart. * Telephone Encounter - Samreen Pacheco NP - 11/23/2023 9:33 AM EST Noted. Thank you * Telephone Encounter - La Rod RN - 11/22/2023 4:28 PM EST TC placed to patient via [employer] Blowing Machine Attendant regarding two recent messages below. Patient didn't answer. TC placed to patient without parts interpreter line. Patient states she had surgery to remove a kidney stone today at [facility] and is resting at home. Notes not yet in chart. Asked patient about symptoms of chest pain reported in message below. Patient reports that she has fleeting, momentary sensations of chest pressure/heaviness when doing activities. Denies other symptoms. Reports that last episode was one week ago. Advised patient that the best course for evaluation of chest pressure is to go to ED. Patient expressed understanding. Patient will go to ED if chest pressure recurs. For now, patient will rest and stay hydrated at home following kidney stone procedure. Patient agreeable to schedule follow up with Samreen Pacheco per message below. Scheduled for extended follow up visit this 11/26/23, with Samreen Pacheco at 2pm. Routine note high priority to Samreen Pacheco for review and advice and also back to Blue Team nurses to look for [facility] notes as this conventional mortgage underwriter does not have access. Tc from rochelle glass presser with [facility] urology would like to inform PCP that provider Mary is recommending a STAT[facility] cardiology referral for chest pain and and exertion and also is requesting a referral for nephrology, states pt creatinine levels are 2.5. If any questions or concerns please contact at [phone] EXT [phone] ARACELI Velasco [facility] Team Nurses Caller: Unspecified (Today, 10:17 AM) Can we do a status check on this patient please. She was scheduled to see me on 09/17 but no show-ed. Her next apt with me is not till 12/26. If she needs immediate attention she may be scheduled with any available provider. Thanks documented in this encounter Plan of Treatment Upcoming Encounters Date Type Department Care Team (Late st Contact Info) Description 08/06/2025 3:15 PM EST Office Visit [facility] MEDICINE [address] [place] [address] Samreen Pacheco NP [address] [place] [address] documented as of this encounter Visit Diagnoses Not on filedocumented in this encounter Additional Health Concerns Assessment Noted Time PHQ-9 Depression Total Score: 16 023 3:41 PM EDT documented as of this encounter Care Teams Engine Mechanic Relationship Specialty Start Date End Date Samreen Pacheco NP [address] [place] [address] PCP - General Family Medicine 07/06/23 documented as of this encounter
--- OUTSIDE RECORDS SUMMARY | 2025-06-29 15:10 | XMS_ITS | Encounter Summary ---
Author Organization [employer] Address [address] [facility] 7 [place] [address] Care Team Providers Care Laundry Housekeeping Aide Name Role Phone Samreen Pacheco NP Primary Care Provider [phone] Reason for Visit * Reason Comments Med Change Request Encounter Details Date Type Department Care Team ([facility] st Contact Info) Description 12/10/2023 Refill [facility] MEDICINE [address] [place] [address] Samreen Pacheco NP [address] [place] [address] Uncontrolled hypertension Social History Tobacco Use Types Packs/Day Years [...] encounter Miscellaneous Notes * Telephone Encounter - Samreen Pacheco NP - 12/14/2023 2:59 PM EDT Medication adjusted * Telephone Encounter - Greg Burgos RN - 12/13/2023 11:03 AM EDT T/C to pt. For below message. Pt. Verbally greed and understood to take two of 5 mg amlodipine tabs. ----- Message from Samreen Pacheco NP sent at 12/13/2023 10:36 AM EDT ----- Hi there! Will you please call this patient and have her increase her take two of her 5 mg amlodipine tabs. I sent an prescription to pharmacy for 10 mg however they are requesting a 90 day supply which would be wasteful if we end up needing to change her dose again or the med altogether. Thank you documented in this encounter Plan of Treatment Upcoming Encounters Date Type Department Care Team (Late st Contact Info) Description 08/06/2025 3:15 PM EST Office Visit [facility] MEDICINE [address] [place] [address] Samreen Pacheco NP [address] [place] [address] documented as of this encounter Visit Diagnoses Diagnosis Uncontrolled hypertension documented in this encounter Additional Health Concerns Assessment Noted Time PHQ-9 Depression Total Score: 24 024 2:45 PM EST documented as of this encounter Care Teams Laundry Housekeeping Aide Relationship Specialty Start Date End Date Samreen Pacheco NP [address] [place] [address] PCP - General Family Medicine 07/06/23 documented as of this encounter
--- OUTSIDE RECORDS SUMMARY | 2025-06-29 15:10 | XMS_ITS | Encounter Summary ---
Author Organization [facility] Address [address] [place] [address] [place] [address] Care Team Providers Care Straw Hat Brim Cutter Operator Name Role Phone Michael Campbell MD Primary Care Provider Giselle Bermudez Primary Care Provider Samreen Gilmore NP Primary Care Provider [phone] Encounter Details Date Type Department Care Team (Latest Contact Info) Description 08/21/2019 Abstract [facility] CONVERSIONS Dental, Provider, DDS Social History Tobacco [...] Description 08/06/2025 3:15 PM EST Office Visit [facility] MEDICINE [address] [place] [address] Samreen Pacheco NP [address] [place] [address] documented as of this encounter Visit Diagnoses Not on filedocumented in this encounter Care Teams Straw Hat Brim Cutter Operator Relationship Specialty Start Date End Date Michael Campbell MD PCP - General Family Medicine 07/05/19 08/23/22 Giselle Hamlin FNP PCP - General Family Medicine 08/24/22 07/05/23 Samreen Pacheco NP [address] [place] [address] PCP - General Family Medicine 07/06/23 documented as of this encounter
--- OUTSIDE RECORDS SUMMARY | 2025-06-29 15:10 | XMS_ITS | Encounter Summary ---
Author Organization [email or web address] Address [address] [facility] 7t [place] [address] Care Team Providers Care Ict Support And Test Engineers Name Role Phone Junior Samreen CHARLES Primary Care Provider [phone] Reason for Visit * Reason Comments Med Refill Encounter Details Date Type Department Care Team ([facility] st Contact Info) Description 03/18/2024 Refill [facility] MEDICINE [address] [place] [address] Channing Menchaca AGNP Uncontrolled hypertension; Edema of [...] Description 08/06/2025 3:15 PM EST Office Visit [facility] MEDICINE [address] [place] [address] Samreen Pacheco NP [address] [place] [address] documented as of this encounter Visit Diagnoses Diagnosis Uncontrolled hypertension Edema of both lower legs documented in this encounter Additional Health Concerns Assessment Noted Time PHQ-9 Depression Total Score: 8 01/12/20 24 2:34 PM EDT documented as of this encounter Care Teams Ict Support And Test Engineers Relationship Specialty Start Date End Date Samreen Pacheco NP [address] [place] [address] PCP - General Family Medicine 07/06/23 documented as of this encounter
--- NOTE | 2025-06-29 15:26 | HO.NEPHOV ---
Vital Signs 06/29/25 15:27 Height 5 ft 4 in Weight 172 lb 2 oz BMI 29.5 BP 150/70 H Blood Pressure Location Rt brachial Position Sitting Pulse 84 Pulse Source Pulse Oximeter Pulse Oximetry (%) 99 Oxygen Delivery Method Room Air Intake Visit Reasons: ENP: CKD STG 4, Uncontrolled HTN Self Contained Behavior Unit Teacher Required: Yes Self Contained Behavior Unit Teacher Language: Emergency Planner Services: Self Contained Behavior Unit Teacher Offered & Declined ([facility] Self Contained Behavior Unit Teacher services refused ) Accompanied by: Self / Same As Patient Allergies No Known Allergies Allergy (Verified 06/29/25 15:27) HPI Comments Details: I had the privilege of seeing Rosario in follow up for CKD. She has not followed up nor has not done any investigations as ordered since last visit a year ago. She has long standing hypertension and is on multiple anti hypertensive medications. She is not aware of nick vascular disease. She denies CAD, CHF, CVA, BRUCE , carotid stenosis, PAD, renal stones, new bone pain, proteinuria, retinopathy, sensori neural deafness, orthostatic symptoms. She denies drug use, H/O hepatitis, HIV, excess NSAID use. She has no H/O epistaxis, photosensitivity, mouth ulcers , hematuria or renal stones. She is not a diabetic. Her BP has been well controlled lately on her current medication regimen. She is active and feels well. She had been having serum creatinine close to 2.0 for a few years but lately it has gone up to 2.7 PFSH Medical History Hydronephrosis Obstructive uropathy Chronic kidney disease Renal failure Skin abscess Groin abscess Abscess of groin, right Surgical History H/O section History of lithotripsy Family History Father Diabetes mellitus HTN (hypertension) Mother Diabetes mellitus HTN (hypertension) Social History Alcohol intake: never Patient Tobacco Use Status: Never used Tobacco e-Cigarette/Vaping Use: Currently Using Review of Systems Const All systems reviewed & are unremarkable except as noted in HPI and below Physical Exam Vital Signs: Last Vital Signs Pulse 84 10/03/25 15:27 BP 150/70 H 10/03/25 15:27 Pulse Ox 99 06/29/25 15:27 Oxygen Delivery Method Room Air 06/29/25 15:27 BMI result Body Mass Index 29.5 Const General: comfortable and no acute distress Orientation/consciousness: patient oriented x3 HEENT Head: Yes normocephalic Mouth: Normal oral and palatal mucosa present Eyes EOM: EOMs intact bilaterally Neck Neck: Yes supple Resp Auscultation: clear to auscultation bilaterally Cardio Jugular venous distension: no JVD Rate: regular rate GI Palpation (GI): Soft to palpation Auscultation: normal bowel sounds General: Yes no CVA tenderness Back/Spine/Pelvis Back: no CVA tenderness Skin General skin exam: no rashes or lesions noted Neuro General: patient oriented x3 and moves all extremities Extrem General: Yes no pedal edema Results Reviewed Nephrology Results: Hgb, (12.0-16.0) 13.3 g/dl 04/02/25 WBC, (4.8-10.8) 6.9 X10*3/uL 04/02/25 Plt Count, (160-400) 188 X10*3/uL 04/02/25 Sodium, (135-145) 142 mmol/L 04/02/25 Potassium, (3.3-5.1) 4.8 mmol/L 04/02/25 Chloride, (96-108) 110 mmol/L H 04/02/25 Carbon Dioxide, (22-29) 23 mmol/L 04/02/25 BUN, (9-16) 34 mg/dL H 04/02/25 Creatinine, (0.5-1.4) 2.76 mg/dL H 04/02/25 Calcium, (8.4-10.2) 9.4 mg/dL 04/02/25 Phosphorus, (2.7-4.5) 2.8 mg/dL 01/12/24 PTH Intact, (8.7-77.1) 352.1 pg/mL H 01/12/24 Urine Protein, (NEG-TRACE) 2+ MG/DL H 11/30/21 Urine Creatinine 125.44 mg/dL 04/02/25 Renal US 08/05/20 Assessment & Plan Assessment & Plan (1) CKD (chronic kidney disease) stage 4, GFR 15-29 ml/min: Code(s): N18.4 - Chronic kidney disease, stage 4 (severe) Category: Medical (2) Hypertension: Code(s): I10 - Essential (primary) hypertension Category: Medical Qualifiers: Hypertension type: primary hypertension Qualified Code(s): I10 - Essential (primary) hypertension (3) Secondary hyperparathyroidism of renal origin: Code(s): N25.81 - Secondary hyperparathyroidism of renal origin Category: Medical (4) CKD (chronic kidney disease) stage 4, GFR 15-29 ml/min: Code(s): N18.4 - Chronic kidney disease, stage 4 (severe) Category: Medical (5) Proteinuria: Code(s): R80.9 - Proteinuria, unspecified Category: Medical Qualifiers: Proteinuria type: other Qualified Code(s): R80.8 - Other proteinuria Plan Rosario has renal dysfunction for a long time. She has not a diabetic. She has longstanding hypertension which had been under poor control needing more medications but is at goal now. She has not taken any medications as suggested for one year. She has not known to have any cardiomyopathy but has history of nephrolithiasis needing interventions and stent placement. She is currently on amlodipine to keep her blood pressure at goal. She avoids nonsteroidal anti-inflammatories. She maintains good hydration. She has no clinical signs of heart failure or orthostatic symptoms. I have ordered extensive investigations including imaging studies as well as cr clearance. She will need a renal biopsy. Further management is pending evolving data. Time spent retrieving and reviewing medical records, patient visit and documentation included 46 minutes. I had the opportunity to answer all her questions. Follow-up appointment given. Orders: Orders UA and rflx microscopic Today I10 - Essential (primary) hypertension, N18.4 - Chronic kidney disease, stage 4 (severe), N25.81 - Secondary hyperparathyroidism of renal origin Protein Creatinine Ratio, Ur Today I10 - Essential (primary) hypertension, N18.4 - Chronic kidney disease, stage 4 (severe), N25.81 - Secondary hyperparathyroidism of renal origin Immunofixation, Random Urine Today I10 - Essential (primary) hypertension, N18.4 - Chronic kidney disease, stage 4 (severe), N25.81 - Secondary hyperparathyroidism of renal origin Prothrombin Time INR Today I10 - Essential (primary) hypertension, N18.4 - Chronic kidney disease, stage 4 (severe), N25.81 - Secondary hyperparathyroidism of renal origin Creatinine Clearance Urine 24U Today I10 - Essential (primary) hypertension, N18.4 - Chronic kidney disease, stage 4 (severe), N25.81 - Secondary hyperparathyroidism of renal origin Anti DNA DS Antibody Today I10 - Essential (primary) hypertension, N18.4 - Chronic kidney disease, stage 4 (severe), N25.81 - Secondary hyperparathyroidism of renal origin Anti Glomerular Basement Memb Today I10 - Essential (primary) hypertension, N18.4 - Chronic kidney disease, stage 4 (severe), N25.81 - Secondary hyperparathyroidism of renal origin Complement C4 Today I10 - Essential (primary) hypertension, N18.4 - Chronic kidney disease, stage 4 (severe), N25.81 - Secondary hyperparathyroidism of renal origin Phospholipase A2 Receptor Pnl Today I10 - Essential (primary) hypertension, N18.4 - Chronic kidney disease, stage 4 (severe), N25.81 - Secondary hyperparathyroidism of renal origin Hepatitis B Core Antibody Today I10 - Essential (primary) hypertension, N18.4 - Chronic kidney disease, stage 4 (severe), N25.81 - Secondary hyperparathyroidism of renal origin Hepatitis B Surface Antigen Today I10 - Essential (primary) hypertension, N18.4 - Chronic kidney disease, stage 4 (severe), N25.81 - Secondary hyperparathyroidism of renal origin Electrolytes Today I10 - Essential (primary) hypertension, N18.4 - Chronic kidney disease, stage 4 (severe), N25.81 - Secondary hyperparathyroidism of renal origin Hemoglobin A1c Today N18.4 - Chronic kidney disease, stage 4 (severe) Aspartate Amino Transferase Today N18.4 - Chronic kidney disease, stage 4 (severe) Complete Blood Count Auto Diff Today I10 - Essential (primary) hypertension, N18.4 - Chronic kidney disease, stage 4 (severe), N25.81 - Secondary hyperparathyroidism of renal origin Myeloperoxidase Antibody Today I10 - Essential (primary) hypertension, N18.4 - Chronic kidney disease, stage 4 (severe), N25.81 - Secondary hyperparathyroidism of renal origin Proteinase 3 PR3 Antibodies Today I10 - Essential (primary) hypertension, N18.4 - Chronic kidney disease, stage 4 (severe), N25.81 - Secondary hyperparathyroidism of renal origin Immunofixation Pnl, Serum Today I10 - Essential (primary) hypertension, N18.4 - Chronic kidney disease, stage 4 (severe), N25.81 - Secondary hyperparathyroidism of renal origin Complement C3 Today I10 - Essential (primary) hypertension, N18.4 - Chronic kidney disease, stage 4 (severe), N25.81 - Secondary hyperparathyroidism of renal origin Calcium Today I10 - Essential (primary) hypertension, N18.4 - Chronic kidney disease, stage 4 (severe), N25.81 - Secondary hyperparathyroidism of renal origin Blood Urea Nitrogen Today I10 - Essential (primary) hypertension, N18.4 - Chronic kidney disease, stage 4 (severe), N25.81 - Secondary hyperparathyroidism of renal origin Creatinine Today I10 - Essential (primary) hypertension, N18.4 - Chronic kidney disease, stage 4 (severe), N25.81 - Secondary hyperparathyroidism of renal origin US renal BI 2 Weeks I10 - Essential (primary) hypertension, N18.4 - Chronic kidney disease, stage 4 (severe), N25.81 - Secondary hyperparathyroidism of renal origin Alanine Aminotransferase Today N18.4 - Chronic kidney disease, stage 4 (severe) Albumin Level Today N18.4 - Chronic kidney disease, stage 4 (severe) Coding Level of Care Code Est Pt Level 5 (34652) Diagnoses CKD (chronic kidney disease) stage 4, GFR 15-29 ml/min N18.4 Primary hypertension I10 Hypertension type: primary hypertension Secondary hyperparathyroidism of renal origin N25.81 Other proteinuria R80.8 Proteinuria type: other
[2025-06-29 15:27] VITALS: BP 150/70; PULSE 84; O2SAT 99; BMI 29.5
== END 2025-06-29 15:52 | disposition home or self-care (01) ==
PROVIDERS: PCP Nurse Practitioner; Referring Provider Nurse Practitioner; Visit Provider Internal Medicine Nephrology
DX: I12.9 Hypertensive chronic kidney disease with stage 1 through stage 4 chronic kidney disease, or unspecified chronic kidney disease (principal); N18.4 Chronic kidney disease, stage 4 (severe); N25.81 Secondary hyperparathyroidism of renal origin; R80.8 Other proteinuria
CPT/HCPCS: 99215

== ENCOUNTER → 2025-06-29 15:07 | Outpatient (BNVA) | payer MEDICAID, SELFPAY | PROVIDERS: PCP Nurse Practitioner; Referring Provider Nurse Practitioner; Visit Provider Internal Medicine Nephrology | DX: N18.4 Chronic kidney disease, stage 4 (severe) (principal); I10 Essential (primary) hypertension; N25.81 Secondary hyperparathyroidism of renal origin; R80.8 Other proteinuria | CPT/HCPCS: 99212 ==

== ENCOUNTER 2025-07-02 13:30 | Outpatient (REF) | payer MEDICAID, SELFPAY ==
--- OUTSIDE RECORDS SUMMARY | 2025-06-27 15:15 | XMS_ITS | Encounter Summary ---
Author Organization [employer] Address [address] [place] [address] 7 [place] [address] Care Team Providers Care Press Breaker Name Role Phone Samreen Pacheco NP Primary Care Provider [phone] Reason for Referral * Consultation (Routine) - Authorized Specialty Diagnoses / Procedures Referred By Conttravis t Referred To Contact Nephrology Diagnoses CKD stage G4/A3, GFR 15-29 and albumin creatinine ratio >300 mg/g (CMS/HCC) ([facility]) Samreen Pacheco NP [address] [place] [address] Phone: tel: fax: [facility] [address], [address] [place] [address] Phone: tel: fax: Referral ID Status Reason Start Date Expiration Date Visits Requested Visits Authorized [id number] Authorized Specialty Services Required 06/28/2025 06/28/2026 6 6 Encounter Details Date Type Department Care Team (Late st Contact Info) Description 06/27/2025 3:15 PM EDT Office Visit [facility] [address] [place] [address] Samreen Pacheco NP [address] [place] [address] Hypertensive urgency (Primary Dx); CKD stage G4/A3, GFR 15-29 and albumin creatinine ratio >300 mg/g (CMS/HCC) ([facility]) Social History Tobacco Use Types Packs/Day Years Used Date Smoking Tobacco: Former Cigarettes Passive Smoke Exposure: Never Smokeless Tobacco: Never Alcohol Use Standard Drinks/Week Comments Never 0 (1 standard drink = 0.6 oz pur e alcohol) Alcohol Answer Date Recorded How often do you have a drink containing alcohol ? 1 03/19/2025 How many drinks containing a lcohol do you have on a typical day when you are drinking? 1 03/19/2025 How often do you have six or more drinks on one occasion? 0 03/19/2025 Depression Answer Date Recorded Patient Health Questionnaire-9 Score 22 03/19/2025 Patient Health Questionnaire-9 Score 22 03/19/2025 Last PHQ-9: Questionnaire Data Not on file 0 03/19/2025 Housing Stability Answer Date Recorded What is your housing situation today? I have hilda araiza 03/19/[address] you li ve. Do you have problems with any of the following? None of the above 03/19/2025 Food Insecurity Answer Date Recorded Within the past 12 months, y ou worried that your food would run out before you got money to buy more: Never True 03/19/2025 Within the past 12 months,th e food you bought just didn't last and you didn't have enough money to get more: Never True Transportation Answer Date Recorded In the past 12 months, has l ack of transportation kept you from medical appts, meetings, work or from getting things needed for daily living? No 03/19/2025 Utilities Answer Date Recorded In the past 12 months, has t he electric, gas, oil or water company threatened to shut off services in your home? I am not sure 03/19/2025 Depression Answer Date Recorded Patient Health Questionnaire-2 Score 6 03/19/2025 Internet Access Answer Date Recorded Internet Access Q1 Yes 03/19/2025 Internet Access Q2 Not on file 03/19/2025 Comments No Sex and Gender Information Value Date Recorded Sex Assigned at Female 07/27/2022 10:22 AM EDT Legal Sex Female 10:22 AM EDT Gender Identity Female 07/27/2022 10:22 AM EDT Sexual Orientation Straight 07/27/2022 10 :22 AM EDT documented as of this encounter Last Filed Vital Signs Vital Sign Reading Time Taken Comments Blood Pressure 200/108 06/27/2025 3:32 PM EDT Pulse 97 06/27/2025 3:32 PM EDT Temperature 36.5 C (97.7 F) 06/27/2025 3:32 PM EDT Respiratory Rate 14 06/27/2025 3:32 PM EDT Oxygen Saturation 99% 06/27/2025 3:32 PM EDT Inhaled Oxygen Concentration - - Weight 78 kg (172 lb) 06/27/2025 3:32 PM EDT Height 162.6 cm (5' 4 ) 06/27/2025 3:32 PM EDT Body Mass Index 29.52 06/27/2025 3:32 PM EDT documented in this encounter Progress Notes * Samreen Pacheco NP - 06/27/2025 3:15 PM EDT Subjective: Rosario Mistry is a 45 y.o. female presents for hypertension follow-up. Here with boyfriend. Patient consents to her medical information being discussed in his presence. HPI Roasrio Mistry reports improvement in her mood since our last encounter. Has not established with therapist or psych prescriber. Inquiring about results from labs completed following previsous visit. Noted to have severely elevated BP in clinic. States she has not taken BP meds for about 7 months now as she has not been able to obtain them from pharmacy. Reports some shortness of breath and chestpain at time of visit. Has intermittent headaches. Has not seen Nephrology in over 1 year better since our last encounter. Has been taking medicationsas prescribed and reports no side effects. Denies chest pain or dyspnea on exertion, lower extremity edema, headaches, or visual changes. BP Readings from Last 3 Encounters: 06/27/25 (!) 200/108 03/19/25 (!) 140/92 01/12/24 (!) 153/90 Current Medications[1] Tobacco Use History[2] No results found for: HGBA1C Lab Results Component Value Date GLUCOSE 91 04/02/2025 NA 142 04/02/2025 K 4.8 04/02/2025 CO2 23 04/02/2025 CL 110 (H) 04/02/2025 BUN 34 (H) 04/02/2025 CREATININE 2.76 (H) 04/02/2025 Lab Results Component Value Date MICROALBUR 1,586.0 04/02/2025 Review of Systems Constitutional: Negative. Negative for chills and fever. Respiratory: Positive for shortness of breath. Negative for chest tightness. Cardiovascular: Positive for chest pain. Gastrointestinal: Negative for abdominal pain, constipation, diarrhea and nausea. Genitourinary: Negative for dysuria. Musculoskeletal: Negative for arthralgias, back pain, myalgias and neck pain. Skin: Negative. Negative for rash and wound. Neurological: Negative for weakness, light-headedness and headaches. Psychiatric/Behavioral: Negative for behavioral problems, confusion, decreased concentration and suicidal ideas. Problem List[3] Objective: Vitals: 06/27/25 1529 06/27/25 1532 BP: (!) 200/100 (!) 200/108 BP Location: Left arm Left arm Patient Position: Sitting Sitting BP Cuff Size: Adult Adult Pulse: 97 Resp: 14 Temp: 97.7 ??F (36.5 ??C) TempSrc: Temporal SpO2: 99% Weight: 172 lb (78 kg) Height: 5' 4 (1.626 m) Physical Exam Vitals reviewed. Constitutional: General: She is not in acute distress. Appearance: Normal appearance. She is not ill-appearing. HENT: Head: Normocephalic and atraumatic. Right Ear: External ear normal. Left Ear: External ear normal. Nose: Nose normal. Eyes: General: No scleral icterus. Extraocular Movements: Extraocular movements intact. Cardiovascular: Rate and Rhythm: Normal rate and regular rhythm. Pulses: Normal pulses. Heart sounds: Normal heart sounds. Pulmonary: Effort: Pulmonary effort is normal. No respiratory distress. Breath sounds: Normal breath sounds. Musculoskeletal: General: Normal range of motion. Cervical back: Normal range of motion. Neurological: General: No focal deficit present. Mental Status: She is alert and oriented to person, place, and time. Gait: Gait normal. Psychiatric: Mood and Affect: Mood normal. Behavior: Behavior normal. Lab review: labs reviewed, I note that lipids total cholesterol, LDL, triglycerides are elevated, renal functions abnormal BUN/CR elevated, GFR decreased to 19 mL/min. The 10-year ASCVD risk score (Ziggy FONSECA, et al., 2019) is: 4% Values used to calculate the score: Age: 45 years Sex: Female Is Non- : No Diabetic: No Tobacco smoker: No Systolic Blood Pressure: 200 mmHg Is BP treated: Yes HDL Cholesterol: 48 mg/dL Total Cholesterol: 224 mg/dL Lab Results Component Value Date DESI ,264.3 04/02/2025 Assessment: Problem List Items Addressed This Visit CKD stage G4/A3, GFR 15-29 and albumin creatinine ratio >300 mg/g ([facility]/HCC) ([facility]) Relevant Orders Referral to Nephrology Other Visit Diagnoses Hypertensive urgency - Primary -patient is encouraged to go to ED for emergency evaluation given elevated readings and symptoms -expect called to [facility] ED. patient traveling by private car Relevant Orders ECG 12 lead (Completed) Follow-up: 1 month or sooner as needed Setswana Translation: Provided by [facility] staff member ARMINDA Diaz [1] Current Outpatient Medications Medication Sig Dispense Refill amLODIPine (Norvasc) 10 MG tablet Take 1 tablet by mouth qam 30 tablet 1 cefdinir (Omnicef) 300 MG capsule Take 300 mg by mouth 2 times daily. D3-1000 25 MCG (1000 UT) capsule TAKE 1 CAPSULE (25 MCG) BY MOUTH ONCE PER DAY. 90 capsule 1 Jardiance 10 MG TAKE 1 TABLET (10 MG) BY MOUTH IN THE MORNING FOR 30 DOSES. 90 tablet 0 losartan (Cozaar) 25 MG tablet TAKE 1 TABLET BY MOUTH EVERY DAY IN THE MORNING 90 tablet 1 Multiple Vitamin (Daily-Cy Multivitamin) tablet TAKE 1 TABLET BY MOUTH EVERY DAY IN THE MORNING 90 tablet 1 oxyCODONE (Roxicodone) 5 MG immediate release tablet TAKE 1 TABLET EVERY BY MOUTH EVERY 4 TO 6 HOURS NEEDED sertraline (Zoloft) 25 MG tablet TAKE 2 TABLETS (50 MG TOTAL) BY MOUTH EVERY MORNING. 60 tablet 1 buPROPion XL (Wellbutrin XL) 150 MG 24 hr tablet Take 1 tablet (150 mg) by mouth in the morning for3 days, THEN 2 tablets (300 mg) in the morning for 27 days. Take 1 tablet by mouth daily for 3 daysand increase to 1 tab two times daily Do not crush, chew, or split. 57 tablet 0 labetalol (Normodyne) 100 MG tablet TAKE 0.5 TABLETS (50 MG) BY MOUTH 2 TIMES DAILY. 90 tablet 0 No current facility-administered medications for this visit. [2] Social History Tobacco Use Smoking Status Former Types: Cigarettes Passive exposure: Never Smokeless Tobacco Never [3] Patient Active Problem List Diagnosis CKD stage G4/A3, GFR 15-29 and albumin creatinine ratio >300 mg/g ([facility]/HCC) ([facility]) Urinary tract obstruction Uncontrolled hypertension Stage 3b chronic kidney disease (CMS/HCC) ([facility]) Renal stone Renal osteodystrophy Edema of both lower legs Hypertensive disorder Moderately severe depression Chest pain Moderate anxiety documented in this encounter Plan of Treatment Upcoming Encounters Date Type Department Care Team (Late st Contact Info) Description 08/06/2025 3:15 PM EST Office Visit [facility] MEDICINE [address] [place], [place] [phone] Samreen Pacheco NP [address] [place], [place] [phone] Scheduled Referrals Name Type Priority Associated Diagnoses Order Schedule Referral to Nephrology Outpatient Referral Routine CKD stage G4/A3, GFR 15-29 and albumin creatinine ratio >300 mg/g ([facility]) Expected: 06/27/2025 (Approximate), Expires: 06/27/2026 documented as of this encounter Procedures Procedure Name Priority Date/Time Associated Diagnosis Comments ECG 12-LEAD Routine 06/27/2025 6:06 PM EDT Hypertensive urgency documented in this encounter Results * ECG 12 lead (06/27/2025 6:06 PM EDT) Narrative Samreen Pacheco NP - 06/27/2025 6:06 PM EDT HR 65 bpm, no ST changes; sinus arrhythmia EKG us Samreen Pacheco NP ECG ORDERABLES Final Result documented in this encounter Visit Diagnoses Diagnosis Hypertensive urgency- Primary CKD stage G4/A3, GFR 15-29 and albumin creatinine ratio >300 mg/g ([facility]/HCC) ([facility]) documented in this encounter Additional Health Concerns Assessment Noted Time PHQ-9 Depression Total Score: 22 06//2 025 4:10 PM EDT documented as of this encounter Care Teams Press Breaker Relationship Specialty Start Date End Date Samreen Pacheco NP [address] [place] [address] PCP - General Family Medicine 07/06/23 documented as of this encounter
--- OUTSIDE RECORDS SUMMARY | 2025-07-02 15:53 | XMS_ITS | Encounter Summary ---
Author Organization [employer] Address [address] [facility] [address] [place] [address] Care Team Providers Care Advertising Writer Name Role Phone Junior Samreen CHARLES Primary Care Provider [phone] Reason for Visit * Reason Comments Med Refill Encounter Details Date Type Department Care Team ([facility] st Contact Info) Description 03/18/[address] [facility] [address] [place] [address] Channing Menchaca AGNP Uncontrolled hypertension; Edema of [...] Description 08/06/2025 3:15 PM EST Office Visit [facility] [address] [place] [phone] Samreen Pacheco NP [address] [place] [address] documented as of this encounter Visit Diagnoses Diagnosis Uncontrolled hypertension Edema of both lower legs documented in this encounter Additional Health Concerns Assessment Noted Time PHQ-9 Depression Total Score: 8 01/12/20 24 2:34 PM EDT documented as of this encounter Care Teams Advertising Writer Relationship Specialty Start Date End Date Samreen Pacheco NP [address] [place] [phone] PCP - General Family Medicine 07/06/23 documented as of this encounter
--- OUTSIDE RECORDS SUMMARY | 2025-07-02 15:53 | XMS_ITS | Clinical Summary ---
Author Organization [employer] Address [address] [place] [address] 7t [place] [address] Care Team Providers Care Green Chain Operator Name Role Phone Samreen Pacheco NP Primary Care Provider [phone] Allergies No known active allergies Medications * [...] me she has a follow with her Automotive Center Manager soon. EKG : NSR, HR 76 bpm, [...] osteodystrophy 04/07/2022 Stage 3b chronic kidney disease ([facility]) 2020 Assessment & Plan (02/24/2023 11:19 AM [...] PLAN FOR MODERATE MAJOR DEPRESSION, SINGLE EPISODE ([facility]) WRITTEN ON 02/11/2023 4:08 PM BY LINDA LORD MD Pt has a history of depression, currently denies any SI. PHQ9 16 Will ask our [facility] clinician to contact her Assessment & Plan [...] a nd albumin creatinine ratio >300 mg/g ([facility]) 08/05/2012 Assessment & Plan (05/30/2025 1:15 PM [...] Left leg measures at the ankle 8 3/4 Right leg measures at the ankle 9 1/4 Encounters * This document contains information received from the source organization and may not represent a complete record from that organization. Date Type Department Care Team Description 06/27/2025 3:15 PM EDT Office Visit [address] [address] Samreen Pacheco NP Hypertensive urgency (Primary Dx); CKD stage G4/A3, GFR 15-29 and albumin creatinine ratio >300 mg/g ([facility]) ([facility]) 06/27/2025 Travel 05/30/2025 Results Follow-Up [address] [address] Samreen Pacheco NP Comprehensive Metabolic Panel, Albumin, Random Urine W/Creatinine, Vitamin D, 25-Hydroxy, Total, Immunoassay, Additional followed-up results: 2 05/08/[address] [address] Joe Bennett [place] June recall from Last [...] your housing situation today? I have hilda sing 03/19/[address] you li [...] Description 08/06/2025 3:15 PM EST Office Visit [facility] [address] [place] [address] Samreen Pacheco NP [address] [place] [address] Health Maintenance Due Date Last Done Comments [...] Vitamin D 25-OH Total 24.4(L) >30 ng/mL [facility] Comment: Health Based Reference Values*< 20 ng/mL Sewhuqzbo22-54 ng/mL Insufficient> 30 ng/mL Sufficient*Travon FINNEY. N [...] 8:44 AM EDT 04/02/2025 11:17 AM EDT [facility] [employer] LAB BLOOD ORDERABLES Final Resu lt [facility] [address] [place] [address] [phone] * (ABNORMAL) Albumin, Random Urine W/Creatinine (04/02/2025 8:44 AM EDT) Creatinine, Urine 125.44 mg/dL [facility] Microalbumin Urine 1,586.0 mg/L [facility] Microalbum Creatinine Ratio Ur 1,264.3(H ) <30 ug/mg cr [facility] Comment:Albumin/Creatinine R atio Reference Ranges: Normal: < 30 ug/mg creatinine Microalbuminuria: 30 - 300 ug/mg creatinineClinical Albuminuria: > 300 ug/mg creatinine Urine (Urine, Random) 04/02/2025 8:44 AM EDT 04/02/2025 11:16 AM EDT [facility] [employer] [facility] URINE ORDERABLES Final Resu lt Performing Organization Address City/[facility]/ZIP Co de Phone Number [facility] [address] [place] [address] [phone] * (ABNORMAL) CBC auto differential (04/02/2025 8:44 AM EDT) White Blood Count 6.9 4.8 - 10.8 X10*3/uL [facility] Red Blood Count 4.66 4.20 - 5.50 X10*6/uL [facility] Hemoglobin 13.3 12.0 - 16.0 g/dl [facility] Hematocrit 39.7 37.0 - 47.0 % [facility] Mean Corpuscular Volume 85.2 80.0 - 98.0 fL [facility] Mean Corpuscular Hemoglobin 28.5 27.0 - 33.0 pg [facility] Mean Corpuscular HGB Conc 33.5 31.0 - 35.0 g/dl [facility] Red Cell Distribution Width 14.7 11.0 - 16.0 % [facility] Platelet Count 188 160 - 400 X10*3/uL [facility] Mean Platelet Volume 11.3 9.4 - 12.3 fL [facility] Neutrophils Percent Auto 46.1 45 - 73 % [facility] Imm Gran Pct Auto 0.4 0.0 - 0.4 % [facility] Lymphocytes Percent Auto 41.5(H) 20 - 40 % [facility] Monocytes Percent Auto 8.0 2 - 11 % [facility] Eosinophils Percent Auto 3.1 0 - 4 % [facility] Basophils Percent Auto 0.9 0 - 2 % [facility] NRBC Pct Auto 0.0 0.0 - 0.2 /100WBC [facility] Neutrophils Absolute Auto 3.2 2.0 - 8.3 x10*3/uL [facility] Imm Gran Abs Auto 0.03 0.00 - 0.03 X10*3/uL [facility] Lymphocytes Absolute Auto 2.9 1.2 - 4.9 X10*3/uL [facility] Monocytes Absolute Auto 0.6 0.1 - 1.2 X10*3/uL [facility] Eosinophils Absolute Auto 0.2 0.0 - 0.4 X10*3/uL [facility] Basophils Absolute Auto 0.1 0.0 - 0.2 X10*3/uL [facility] NRBC Abs Auto 0.000 0.0 - 0.012 X10*3/uL [facility] Blood Venous blood specimen / Unknown 04/02/2025 8:44 AM EDT 04/02/2025 11:17 AM EDT us Samreen Pacheco NP LAB BLOOD ORDERABLES Final Resu lt [facility] [address] [place] [address] [phone] * (ABNORMAL) Lipid Panel, Standard (04/02/2025 8:44 AM EDT) Triglycerides 183(H) <150 mg/dL [facility] Comment:Desirable Triglyceri de: less than 150 mg/dLBorderline High Triglyceride 150-199 mg/dLHigh Triglyceride: 200-499 mg/dLVery High Triglyceride: greater than or equal to 5OO mg/dL Cholesterol 224(H) <200 mg/dL [facility] Comment:Desirable Cholestero l: less than 200 mg/dLBorderline High Cholesterol: 200-239 mg/dLHigh Cholesterol: greater than 239 mg/dL LDL Cholesterol Calculated 140(H) <100 mg/dL [facility] Comment:Desirable LDL: less than 100 mg/dLNear Optimal/Above Optimal LDL: 110- 129 mg/dLBorderline High LDL: 130-159 mg/dLHigh LDL: 160-189 mg/dLVery High LDL: greater than or equal to 190 mg/dL HDL Cholesterol 48 >40 mg/dL [facility] Comment:Desirable HDL: great er than 40 mg/dL Note: This HDL assay may give artificially low results in patients with liver disease. Blood Venous blood specimen / Unknown 04/02/2025 8:44 AM EDT 04/02/2025 11:17 AM EDT Samreen Pacheco NP LAB BLOOD ORDERABLES Final Resu lt [facility] [address] [place] [phone] * (ABNORMAL) Comprehensive Metabolic Panel (04/02/2025 8:44 AM EDT) Pathologist [facility] Sodium 142 135 - 145 mmol/L [facility] Potassium 4.8 3.3 - 5.1 mmol/L [facility] Chloride 110(H) 96 - 108 mmol/L [facility] Carbon Dioxide 23 22 - 29 mmol/L [facility] Anion Gap 14 12 - 20 [facility] Urea Nitrogen (BUN) 34(H) 9 - 16 mg/dL [facility] Creatinine, Serum 2.76(H) 0.5 - 1.4 mg/dL [facility] Estimated Glomerular Filt Rate 19 [facility] Comment:Chronic Kidney Disea se: Estimated GFR < 60 mL/min/1.29w6Rghooc Kidney Disease: Estimated GFR < 15 mL/min/1.73m2 Glucose 91 60 - 115 mg/dL [facility] Calcium 9.4 8.4 - 10.2 mg/dL [facility] Bilirubin, Total 0.5 0.0 - 1.0 mg/dL [facility] Aspartate Amino Transferase 30 5 - 31 U/L [facility] Alanine Aminotransferase 32(H) 0 - 31 U/L [facility] Total Protein 7.5 6.5 - 8.0 g/dL [facility] Albumin Level 4.2 3.5 - 5.0 g/dL [facility] Alkaline Phosphatase 110 39 - 117 U/L [facility] Blood Venous blood specimen / Unknown 04/02/2025 8:44 AM EDT 04/02/2025 11:17 AM EDT Samreen Hernandez [employer] BLOOD ORDERABLES Final Resu lt [facility] [address] [place] [address] [phone] * Hepatitis C Antibody with Reflex to HCV, RNA, Quantitative, Real-Time PCR (02/10/2023 11:42 AM EDT) Hepatitis C Antibody NON-REACT HARSHAD NON-REACT HARSHAD [employer] [place] [employer] (HotelHotel)t Index 0.03 <1.00 [employer] [place] [employer] ([employer]el[employer])t Comment: HCV antibody was non-reactive. There is no laboratory evidence of HCV infection. In most cases, no further action is required. However, if recent HCV exposure is suspected, a test for HCV RNA (test code 42061) is suggested. For additional information please refer to http://education.[employer]/faq/HAG95r4 (This link is being provided for informational/ educational purposes only.) Blood Venous blood specimen / Unknown 02/10/2023 11:42 AM EDT 02/10/2023 11:43 AM EDT Narrative RUST - 02/12/2023 4:32 PM EDT FASTING:NO FASTING: NO Fatou GUNDERSON LAB BLOOD ORDERABLES Benita l Result [facility] [address], [place] [address] [employer] [place] [employer] (HotelHotel)t [address] [place] [address] * HIV-1/2 Antigen and Antibodies, Fourth Generation, with Reflexes (02/10/2023 11:42 AM EDT) [facility] HIV Antigen/Antibody, 4th Generation NON-REAC TIVE NON-REAC TIVE [employer] [place] [employer] Comment: HIV-1 antigen and HIV-1/HIV-2 antibodies were [...] purpose. For additional information please refer to http://education.[employer]/faq/QHN593 (This link is being provided for informational/ educational purposes only.) The performance of this assay has not been clinically validated in patients less than 2 years old. Blood Venous blood specimen / Unknown 02/10/2023 11:42 AM EDT 02/10/2023 11:43 AM EDT Narrative [facility] - 02/12/2023 4:32 PM EDT FASTING:NO FASTING: NO Fatou GUNDERSON LAB BLOOD ORDERABLES Benita l Result [facility] [address], [place] [address] [employer] [place] [employer] [address] [place] [address] * Image-Guided Pap with Age-Based Screening??with CT/NG,??Trichomonas (02/10/2023 11:27 AM EDT) Comment [facility] Comment: This order for age-based cervical cancer and STI screening follows ACOG guidelines(PB 168, 140, NWB025). See individual assays for performing site location. Clinical Information: RTN SCREEN Actual[employer] LMP: NONE GIVEN [employer]ual[employer]unt Prev. PAP: NONE GIVEN Actual[employer]unt Prev. BX: NONE GIVEN ActualSunt SOURCE: None given [facility] Statement Of Adequacy: [facility] Comment: Satisfactory for evaluation. Endocervical/transformation zone component absent. Interpretation/Re sult: Negative for intraepithelial lesion or malignancy. [facility] Infection Shift in vaginal hui suggestive of bacterial vaginosis. [employer] COMMENT: This Pap test has been evaluated with computer assisted technology. [facility] Saxophone Teacher: Zokos Comment: DCR, CT(ASCP) CT screening location: [place] [address] Review Saxophone Teacher: ActualSunt Comment: [facility], CT(ASCP) CT screening location: [place] [address] (Always Message) [facility] MMRGlobal Comment: EXPLANATORY NOTE: The Pap is a [...] HPV nRNA E6/E7 Not Detected Not Detected [employer] Comment: Methodology: University Controller-Mediated Amplification This assay detects E6/E7 viral messenger RNA (mRNA) from 14 high-risk HPV types (16,18,31,33,35,39,45,51,52,56,58,59,66,68). Cervical sources are required for HPV testing. If a vaginal source from a patient who has had a total hysterectomy with removal of cervix was submitted, please contact the testing laboratory for alternative testing options. For additional information, please refer to http://[employer]/faq/JSY170f9 (This link if provided for information/ educational purposes only.) Chlamydia trachomatis RNA, TMA, Urogenital NOT DETECTED NOT DETECTED [facility] Neisseria gonorrhoeae RNA, TMA, Urogenital NOT DETECTED NOT DETECTED [employer] [place] [employer] (Always Message) Que st [employer] [place] [employer] Comment: The analytical performance characteristics of this assay, when used to test SurePath(TM) specimens have been determined by [employer]. The modifications have not been cleared or approved by the FDA. This assay has been validated pursuant to the CLIA regulations and is used for clinical purposes. For additional information, please refer to https://[employer]itt[employer]/faq/IOU974 (This link is being provided for information/ educational purposes only.) Trichomonas vaginalis, QL, TMA, PAP Vial NOT DETECTED NOT DETECTED [employer] Comment: The analytical performance characteristics of this assay have been determined by [employer]. The modifications have not been cleared or approved by the FDA. This assay has been validated pursuant to the CLIA regulations and is used for clinical purposes. For additional information, please refer to http://[employer]/ faq/Trichomonastma (This link is being provided for information/ educational purposes only.) Pap Vial 02/10/2023 11:2 7 AM EDT 02/11/2023 7:10 AM EDT Fatou Colby CNM LAB CYTOLOGY ORDERABLES F inal Result [facility] [address] [place] [address] [employer] [place] [employer] [address] [place] [address] from Last 3 Months or Most Recently Relevant to Health Maintenance [place] [address] [place] [address] C3 Care Teams Green Chain Operator Relationship Specialty Start Date End Date Samreen Pacheco NP [address] [place] [address] PCP - General Family Medicine 07/06/23
--- OUTSIDE RECORDS SUMMARY | 2025-07-02 15:54 | XMS_ITS | Encounter Summary ---
Author Organization [employer] Address [address] [facility] 7t [place] [address] Care Team Providers Care Hearing Stenographer Name Role Phone Samreen Pacheco NP Primary Care Provider [phone] Encounter Details Date Type Department Care Team ([facility] st Contact Info) Description 11/22/2023 Telephone [facility] [address] [place], [place] [phone] Samreen Pacheco NP [address] [place] [address] Social History Tobacco Use Types Packs/Day Years [...] T/C to pt. For below message through [place]eralist id - [id number] for below message and status check, pt. States she is doing O.K. pt. Does not has any new symptoms right now, advised to go to nearest ED in case of any new or worsening symptoms including CP, SOB or breathing problem.. [facility] hours are informed. Operative notes are scanned into pt.'s chart. * Telephone Encounter - Samreen Pacheco NP - 11/23/2023 9:33 AM EST Noted. Thank you * Telephone Encounter - La Rod RN - 11/22/2023 4:28 PM EST TC placed to patient via Sqwiggle Brake Adjuster regarding two recent messages below. Patient didn't answer. TC placed to patient without farmworker fur line. Patient states she had surgery to remove a kidney stone today at [facility] and is resting at home. Notes not [...] to look for [facility] notes as this lead technical writer does not have access. Tc from rochelle indian nanny with [facility] urology would like to inform PCP that provider Mary is recommending a [facility] cardiology referral for chest pain and and exertion and also is requesting a referral for nephrology, states pt creatinine levels are 2.5. If any questions or concerns please contact at [phone] ARACELI Velasco [facility] Team Nurses Caller: Unspecified (Today, [...] Description 08/06/2025 3:15 PM EST Office Visit [facility] [address] [place] [address] Samreen Pacheco NP [address] [place] [address] documented as of this encounter Visit Diagnoses Not on filedocumented in this encounter Additional Health Concerns Assessment Noted Time PHQ-9 Depression Total Score: 16 023 3:41 PM EDT documented as of this encounter Care Teams Hearing Stenographer Relationship Specialty Start Date End Date Samreen Pacheco NP [address] [place] [address] PCP - General Family Medicine 07/06/23 documented as of this encounter
--- OUTSIDE RECORDS SUMMARY | 2025-07-02 15:54 | XMS_ITS | Encounter Summary ---
Author Organization [employer] [facility] Address [address] [place] [address] Care Team Providers Care Plate Straightener Name Role Phone Michael Campbell MD Primary Care Provider Giselle Bermudez Primary Care Provider Samreen Gilmore NP Primary Care Provider [phone] Encounter Details Date Type Department Care Team (Latest Contact Info) Description 08/21/2019 Abstract [facility] Dental, Provider, DDS Social History Tobacco [...] Description 08/06/2025 3:15 PM EST Office Visit [facility] [address] [place] [address] Samreen Pacheco NP [address] [place] [address] documented as of this encounter Visit Diagnoses Not on filedocumented in this encounter Care Teams Plate Straightener Relationship Specialty Start Date End Date Michael Campbell MD PCP - General Family Medicine 07/05/19 08/23/22 Giselle Hamlin FNP PCP - General Family Medicine 08/24/22 07/05/23 Samreen Pacheco NP [address] [place] [address] PCP - General Family Medicine 07/06/23 documented as of this encounter
--- OUTSIDE RECORDS SUMMARY | 2025-07-02 15:54 | XMS_ITS | Encounter Summary ---
Author Organization [employer] Address [address] [facility] 7t [place] [address] Care Team Providers Care Lead Assistant Manager Name Role Phone Samreen Pacheco ARACELI Primary Care Provider [phone] Encounter Details Date Type Department Care [...] Description 08/06/2025 3:15 PM EST Office Visit [facility] [address] [place] [phone] Samreen Pacheco NP [address] [place] [address] documented as of this encounter Visit Diagnoses Not on filedocumented in this encounter Additional Health Concerns Assessment Noted Time PHQ-9 Depression Total Score: 22 025 4:10 PM EDT documented as of this encounter Care Teams Lead Assistant Manager Relationship Specialty Start Date End Date Samreen Pacheco NP [address] [place] [address] PCP - General Family Medicine 07/06/23 documented as of this encounter
--- OUTSIDE RECORDS SUMMARY | 2025-07-02 15:54 | XMS_ITS | Encounter Summary ---
Author Organization [employer] Address [address] [facility] 7 [place] [address] Care Team Providers Care Database Marketing Manager Name Role Phone Samreen Pacheco NP Primary Care Provider [phone] Reason for Visit * Reason Comments Med Change Request Encounter Details Date Type Department Care Team ([facility] st Contact Info) Description 12/10/2023 Refill [facility] [address] [place] [address] Samreen Pacheco NP [address] [place] [address] Uncontrolled hypertension Social History Tobacco Use Types [...] Description 08/06/2025 3:15 PM EST Office Visit [facility] [address] [place] [address] Samreen Pacheco NP [address] [place] [address] documented as of this encounter Visit Diagnoses Diagnosis Uncontrolled hypertension documented in this encounter Additional Health Concerns Assessment Noted Time PHQ-9 Depression Total Score: 24 024 2:45 PM EST documented as of this encounter Care Teams Database Marketing Manager Relationship Specialty Start Date End Date Samreen Pacheco NP [address] [place] [address] PCP - General Family Medicine 07/06/23 documented as of this encounter
--- OUTSIDE RECORDS SUMMARY | 2025-07-02 15:54 | XMS_ITS | Encounter Summary ---
Author Organization [employer] [facility] Address [address] [place] [address] Care Team Providers Care Carpenter'S Assistant Name Role Phone Michael Campbell MD Primary Care Provider Giselle Bermudez Primary Care Provider Samreen Gilmore NP Primary Care Provider [phone] Encounter Details Date Type Department Care Team (Latest Contact Info) Description 02/16/2019 Abstract [facility] Dental, Provider, DDS Social History [...] Description 08/06/2025 3:15 PM EST Office Visit [facility] [address] [place] [address] Samreen Pacheco NP [address] [place] [address] documented as of this encounter Visit Diagnoses Not on filedocumented in this encounter Care Teams Carpenter'S Assistant Relationship Specialty Start Date End Date Michael Campbell MD PCP - General Family Medicine 07/05/19 08/23/22 Giselle Hamlin FNP PCP - General Family Medicine 08/24/22 07/05/23 Samreen Pacheco NP [address] [place] [address] PCP - General Family Medicine 07/06/23 documented as of this encounter
[2025-07-02 18:22] LABS: MANUAL DIFF FLAG NO
[2025-07-02 18:24] LABS: Appearance Urine Hazy; Glucose Urine UA Negative (Negative); PH 6.0 (5.0-9.0); Specific Gravity - Urine 1.010 (1.005-1.025); UMIC TRIGGER UA YES
[2025-07-02 18:30] LABS: Hematocrit 38.2 % (37.0-47.0); Hemoglobin 12.9 g/dl (12.0-16.0); Imm Gran Abs Auto 0.02 X10*3/uL (0.00-0.03); Imm Gran Pct Auto 0.3 % (0.0-0.4); Lymphocytes Absolute Auto 2.8 X10*3/uL (1.2-4.9); Mean Corpuscular HGB Conc 33.8 g/dl (31.0-35.0); Mean Corpuscular Hemoglobin 29.3 pg (27.0-33.0); Mean Corpuscular Volume 86.6 fL (80.0-98.0); NRBC Abs Auto 0.000 X10*3/uL (0.0-0.012); NRBC Pct Auto 0.0 /100WBC (0.0-0.2); Platelet Count 193 X10*3/uL (160-400); Red Blood Count 4.41 X10*6/uL (4.20-5.50); White Blood Count 7.3 X10*3/uL (4.8-10.8)
[2025-07-02 18:31] LABS: INTERNATIONAL NORM RATIO 0.9 (0.9-1.1); Prothrombin Time 10.4 SEC (10.9-12.4)
[2025-07-02 18:38] LABS: Alanine Aminotransferase 24 U/L (0-31); Albumin Level 4.1 g/dL (3.5-5.0); Anion Gap 11 (12-20); Aspartate Amino Transferase 30 U/L (5-31); Blood Urea Nitrogen 36 mg/dL (9-16); Calcium 9.3 mg/dL (8.4-10.2); Carbon Dioxide 23 mmol/L (22-29); Chloride 106 mmol/L (96-108); Estimated Glomerular Filt Rate 20; Potassium 4.8 mmol/L (3.3-5.1); Sodium 135 mmol/L (135-145)
[2025-07-02 18:47] LABS: Protein/Creatinine Ratio, Ur 2.34 (<0.2); Total Protein Urine Random 180 mg/dL (<12)
[2025-07-02 19:07] LABS: Creatinine, mg/dL 40.95
[2025-07-02 19:19] LABS: Total Volume 24 Hour Urine 2250 mL
[2025-07-02 19:21] LABS: Creatinine (CrCl) 2.63 mg/dL (0.5-1.4)
[2025-07-03 08:25] LABS: HBc Num1 0.13 S/CO (0.00-0.79); HBsAGNum1 0.35 S/CO (0.00-0.99); Hepatitis B Surface Antigen Negative (Negative)
[2025-07-04 10:19] LABS: Anti Glomerular Basement Memb <1.0 AI; Proteinase 3 PR3 Antibodies 2.5 AI
[2025-07-06 22:03] LABS: Phospholipase A2 IgG ELISA <4 RU/mL; Phospholipase A2 IgG IFA NEGATIVE (NEGATIVE)
== END 2025-07-02 13:31 | disposition home or self-care (01) ==
LOC: HO.HKASLDS 13:30
PROVIDERS: PCP Nurse Practitioner; Visit Provider Internal Medicine Nephrology
DX: Z01.84 Encounter for antibody response examination (principal); Z11.59 Encounter for screening for other viral diseases; I12.9 Hypertensive chronic kidney disease with stage 1 through stage 4 chronic kidney disease, or unspecified chronic kidney disease; N18.4 Chronic kidney disease, stage 4 (severe); N25.81 Secondary hyperparathyroidism of renal origin
CPT/HCPCS: 80051; 81001; 82040; 82310; 82565; 82570; 82575; 82784; 83036; 83520; 84156; 84450; 84460; 84520; 85025; 85610; 86021; 86160; 86225; 86255; 86334; 86335; 86704; 87340

== ENCOUNTER 2025-07-12 15:47 | Outpatient (AMB) | payer MEDICAID, SELFPAY ==
--- NOTE | 2025-07-12 16:26 | HO.NEPHOV_ITS ---
Vital Signs 07/12/25 16:29 Height 5 ft 4 in Weight 175 lb 2 oz BMI 30.1 BP 150/80 H Blood Pressure Location Lt brachial Position Sitting Pulse 95 Pulse Source Pulse Oximeter Pulse Oximetry (%) 98 Oxygen Delivery Method Room Air Intake Visit Reasons: 2wks f/u w/labs-LVM Shift Supervisor Rn Required: Yes Shift Supervisor Rn Language: Sample Coordinator Services: Shift Supervisor Rn Offered & Declined ([facility] [place] Shift Supervisor Rn services refused) Accompanied by: Significant Other Allergies No Known Allergies Allergy (Verified 07/12/25 16:28) HPI Comments Details: I had the privilege of seeing Rosario in follow up for CKD. She has long standing hypertension and is on multiple anti hypertensive medications. She is not aware of nick vascular disease. She denies CAD, CHF, CVA, BRUCE , carotid stenosis, PAD, renal stones, new bone pain, proteinuria, retinopathy, sensori neural deafness, orthostatic symptoms. She denies drug use, H/O hepatitis, HIV, excess NSAID use. She has no H/O epistaxis, photosensitivity, mouth ulcers , hematuria or renal stones. She is not a diabetic. Her BP has not been well controlled lately on her current medication regimen. She is active and feels well. Her serum creatinine has been 2.6 PFSH Medical History Hydronephrosis Obstructive uropathy Chronic kidney disease Renal failure Skin abscess Groin abscess Abscess of groin, right Surgical History H/O section History of lithotripsy Family History Father Diabetes mellitus HTN (hypertension) Mother Diabetes mellitus HTN (hypertension) Social History Alcohol intake: never Patient Tobacco Use Status: Never used Tobacco e-Cigarette/Vaping Use: Currently Using Review of Systems Const All systems reviewed & are unremarkable except as noted in HPI and below Physical Exam Vital Signs: Last Vital Signs Pulse 95 07/12/25 16:29 BP 150/80 H 07/12/25 16:29 Pulse Ox 98 07/12/25 16:29 Oxygen Delivery Method Room Air 07/12/25 16:29 BMI result Body Mass Index 30.1 Const General: comfortable and no acute distress Orientation/consciousness: patient oriented x3 HEENT Head: Yes normocephalic Mouth: Normal oral and palatal mucosa present Eyes EOM: EOMs intact bilaterally Neck Neck: Yes supple Resp Auscultation: clear to auscultation bilaterally Cardio Jugular venous distension: no JVD Rate: regular rate GI Palpation (GI): Soft to palpation Auscultation: normal bowel sounds General: Yes no CVA tenderness Back/Spine/Pelvis Back: no CVA tenderness Skin General skin exam: no rashes or lesions noted Neuro General: patient oriented x3 and moves all extremities Extrem General: Yes no pedal edema Results Reviewed Nephrology Results: Hgb, (12.0-16.0) 12.9 g/dl 07/02/25 WBC, (4.8-10.8) 7.3 X10*3/uL 07/02/25 Plt Count, (160-400) 193 X10*3/uL 07/02/25 Sodium, (135-145) 135 mmol/L 07/02/25 Potassium, (3.3-5.1) 4.8 mmol/L 07/02/25 Chloride, (96-108) 106 mmol/L 07/02/25 Carbon Dioxide, (22-29) 23 mmol/L 07/02/25 BUN, (9-16) 36 mg/dL H 07/02/25 Creatinine, (0.5-1.4) 2.63 mg/dL H 07/02/25 Calcium, (8.4-10.2) 9.3 mg/dL 07/02/25 Phosphorus, (2.7-4.5) 2.8 mg/dL 01/12/24 PTH Intact, (8.7-77.1) 352.1 pg/mL H 01/12/24 Urine Protein, (Neg-Trace) 100 (2+) mg/dL H 07/02/25 Urine Creatinine 76.90 mg/dL 07/02/25 Protein/Creatinin Ratio, (<0.2) 2.34 H 07/02/25 Renal US 08/05/20 Assessment & Plan Assessment & Plan (1) CKD (chronic kidney disease) stage 4, GFR 15-29 ml/min: Code(s): N18.4 - Chronic kidney disease, stage 4 (severe) Category: Medical (2) Hypertension: Code(s): I10 - Essential (primary) hypertension Category: Medical Qualifiers: Hypertension type: primary hypertension Qualified Code(s): I10 - Essential (primary) hypertension (3) Secondary hyperparathyroidism of renal origin: Code(s): N25.81 - Secondary hyperparathyroidism of renal origin Category: Medical (4) Proteinuria: Code(s): R80.9 - Proteinuria, unspecified Category: Medical Qualifiers: Proteinuria type: other Qualified Code(s): R80.8 - Other proteinuria Plan Rosario has renal dysfunction for a long time. She has not a diabetic. She has longstanding hypertension which had been under poor control. She is not known to have any cardiomyopathy but has history of nephrolithiasis needing interventions and stent placement. She is currently on amlodipine to keep her blood pressure at goal. She avoids nonsteroidal anti-inflammatories. She maintains good hydration. She has no clinical signs of heart failure or orthostatic symptoms. Her creatinine clearance is 24 mls/mt. I ordered a renal biopsy. I shall start her on SGLT2 i and low dose ACEI soon, if she tolerates it .I started her on carvedilol and asked her to C/W amlodipine to keep her BP at goal. She needs act ivated Vitamin D soon. I had the opportunity to answer all her questions. Follow-up appointment given. Orders: Orders 2 Electrolytes 2 Months I10 - Essential (primary) hypertension, N18.4 - Chronic kidney disease, stage 4 (severe) CT biopsy renal LT Today N18.4 - Chronic kidney disease, stage 4 (severe), R80.8 - Other proteinuria Blood Urea Nitrogen 2 Months I10 - Essential (primary) hypertension, N18.4 - Chronic kidney disease, stage 4 (severe) Creatinine 2 Months I10 - Essential (primary) hypertension, N18.4 - Chronic kidney disease, stage 4 (severe) Medications: New carvedilol must administer with a meal/food 12.5 mg PO BID 180 tabs 3RF 90 days Coding Level of Care Code Est Pt Level 4 (15318) Diagnoses CKD (chronic kidney disease) stage 4, GFR 15-29 ml/min N18.4 Primary hypertension I10 Hypertension type: primary hypertension Secondary hyperparathyroidism of renal origin N25.81 Other proteinuria R80.8 Proteinuria type: other
[2025-07-12 16:29] VITALS: BP 150/80; PULSE 95; O2SAT 98; BMI 30.1
--- OUTSIDE RECORDS SUMMARY | 2025-07-12 19:29 | XMS_ITS | Encounter Summary ---
Author Organization [employer] [facility] Address [address] [place] [address] [place] [address] Care Team Providers Care Data Warehouse Architect Name Role Phone Michael Campbell MD Primary Care Provider Giselle Bermudez Primary Care Provider Samreen Gilmore NP Primary Care Provider [phone] Encounter Details Date Type Department Care Team (Latest Contact Info) Description 02/16/2019 Abstract [facility] CONVERSIONS Dental, Provider, DDS Social History [...] Description 08/06/2025 3:15 PM EST Office Visit [facility] MEDICINE [address] [place] [address] Samreen Pacheco NP [address] [place] [address] documented as of this encounter Visit Diagnoses Not on filedocumented in this encounter Care Teams Data Warehouse Architect Relationship Specialty Start Date End Date Michael Campbell MD PCP - General Family Medicine 07/05/19 08/23/22 Giselle Hamlin FNP PCP - General Family Medicine 08/24/22 07/05/23 Samreen Pacheco NP [address] [place] [address] PCP - General Family Medicine 07/06/23 documented as of this encounter
--- OUTSIDE RECORDS SUMMARY | 2025-07-12 19:29 | XMS_ITS | Encounter Summary ---
Author Organization [employer] Address [address] [facility] [address] [place] [address] Care Team Providers Care Trip Follower Name Role Phone Samreen Pacheco NP Primary Care Provider [phone] Encounter Details Date Type Department Care Team ([facility] st Contact Info) Description 11/22/2023 Telephone [facility] MEDICINE [address] [place], [place] [phone] Samreen Pacheco NP [address] [place] [address] Social History Tobacco Use Types Packs/Day Years [...] T/C to pt. For below message through CORD:USE Cord Blood Bank id - [id number] for below message and status check, pt. States she is doing O.K. pt. Does not has any new symptoms right now, advised to go to nearest ED in case of any new or worsening symptoms including CP, SOB or breathing problem.. [facility] hours are informed. Operative notes are scanned into pt.'s chart. * Telephone Encounter - Samreen Pacheco NP - 11/23/2023 9:33 AM EST Noted. Thank you * Telephone Encounter - La Rod RN - 11/22/2023 4:28 PM EST TC placed to patient via [employer] National Sales Consultant regarding two recent messages below. Patient didn't answer. TC placed to patient without locket maker line. Patient states she had surgery to remove a kidney stone today at [facility] and is resting at home. Notes not [...] to look for [facility] notes as this service writer does not have access. Tc from rochelle job press operator with [facility] urology would like to inform PCP that provider Mary is recommending a STAT[facility] cardiology referral for chest pain and and exertion and also is requesting a referral for nephrology, states pt creatinine levels are 2.5. If any questions or concerns please contact at [phone] ARACELI Velasco [facility] Team Nurses Caller: Unspecified (Today, 10:17 AM) [...] Description 08/06/2025 3:15 PM EST Office Visit [facility] MEDICINE [address] [place] [address] Samreen Pacheco NP [address] [place] [address] documented as of this encounter Visit Diagnoses Not on filedocumented in this encounter Additional Health Concerns Assessment Noted Time PHQ-9 Depression Total Score: 16 023 3:41 PM EDT documented as of this encounter Care Teams Trip Follower Relationship Specialty Start Date End Date Samreen Pacheco NP [address] [place] [address] PCP - General Family Medicine 07/06/23 documented as of this encounter
--- OUTSIDE RECORDS SUMMARY | 2025-07-12 19:29 | XMS_ITS | Encounter Summary ---
Author Organization [facility] [facility] Address [address] [place] [address] [place] [address] Care Team Providers Care Application Packaging Consultant Name Role Phone Michael Campbell MD Primary Care Provider Giselle Bermudez Primary Care Provider Samreen Gilmore NP Primary Care Provider [phone] Encounter Details Date Type Department Care Team (Latest Contact Info) Description 08/21/[address] [facility] CONVERSIONS Dental, Provider, DDS Social History [...] 3:15 PM EST Office Visit [facility] MEDICINE [address] [place] [address] Samreen Pacheco NP [address] [place] [address] documented as of this encounter Visit Diagnoses Not on filedocumented in this encounter Care Teams Application Packaging Consultant Relationship Specialty Start Date End Date Michael Campbell MD PCP - General Family Medicine 07/05/19 08/23/22 Giselle Hamlin FNP PCP - General Family Medicine 08/24/22 07/05/23 Samreen Pacheco NP [address] [place] [address] PCP - General Family Medicine 07/06/23 documented as of this encounter
--- OUTSIDE RECORDS SUMMARY | 2025-07-12 19:29 | XMS_ITS | Clinical Summary ---
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 EKG : NSR, HR 76 bpm, [...] osteodystrophy 04/07/2022 Stage 3b chronic kidney disease ([facility]) 2020 Assessment & Plan (02/24/2023 [...] PLAN FOR MODERATE MAJOR DEPRESSION, SINGLE EPISODE ([facility]) WRITTEN ON 02/11/2023 4:08 PM BY LINDA LORD MD Pt has a history of depression, currently denies any SI. PHQ9 16 Will ask our [facility] clinician to contact her Assessment & [...] a nd albumin creatinine ratio >300 mg/g ([facility]) 08/05/2012 Assessment & Plan (05/30/2025 [...] organization. Date Type Department Care Team Description 07/02/2025 Orders Only GENERIC EXTERNAL DATA DEPARTMENT Provider, Generic External Data 06/27/2025 3:15 PM EDT Office Visit [facility] [address] [place] [phone] Samreen Pcaheco NP Hypertensive urgency (Primary Dx); CKD stage G4/A3, GFR 15-29 and albumin creatinine ratio >300 mg/g ([facility]) ([facility]) 06/27/2025 Travel 05/30/2025 Results Follow-Up [address] [address] Samreen Pacheco NP Comprehensive Metabolic Panel, Albumin, Random Urine W/Creatinine, Vitamin D, 25-Hydroxy, Total, Immunoassay, Additional followed-up results: 2 05/08/[address] [address] Joe Bennett [place] June recall from Last [...] Answer Date Recorded Patient Health Questionnaire-9 Score 16 07/03/2025 Patient Health Questionnaire-9 Score 16 07/03/2025 Last PHQ-9: Questionnaire Data Not on file 1 Housing Stability Answer Date Recorded What is [...] Answer Date Recorded Patient Health Questionnaire-2 Score 3 07/03/2025 Internet Access Answer Date Recorded Internet Access [...] Description 08/06/2025 3:15 PM EST Office Visit [facility] [address] [place] [address] Samreen Pacheco NP [address] [place] [address] Health Maintenance Due Date Last Done Comments [...] Vaccine (#1) 2025 9, 07/14/2012 Depression Monitoring 01/01/2026 07/03/2025 , 07/03/2025 Alcohol/Substance Use Screening 03/19/2026 03/19/2025 Disability Screening [...] Procedure Name Priority Date/Time Associated Diagnosis Comments IMMUNOFIXATION, SERUM Routine 07/02/2025 1:40 PM EDT IMMUNOFIXATION, URINE Routine 07/02/2025 1:40 PM EDT PHOSPHOLIPASE A2 RECEPTOR (PLA2R) AB PANEL Routine 07/02/2025 1:40 PM EDT COMPLEMENT COMPONENT C4C Routine 07/02/2025 1:40 PM EDT COMPLEMENT COMPONENT C3C Routine 07/02/2025 1:40 PM EDT PROTEINASE-3 ANTIBODY Routine 07/02/2025 1:40 PM EDT MYELOPEROXIDASE ANTIBODY (MPO) Routine 07/02/2025 1:40 PM EDT GLOMERULAR BASEMENT MEMBRANE ANTIBODY (IGG) Routine 07/02/2025 1:40 PM EDT DNA (DS) ANTIBODY Routine 07/02/2025 1:4 0 PM EDT HEPATITIS B SURFACE ANTIGEN, EIA Routine 07/02/2025 1:40 PM EDT HEPATITIS B CORE AB TOTAL Routine 07/02/2025 1:40 PM EDT HEMOGLOBIN A1C Routine 07/02/2025 1:40 PM EDT PROTEIN CREATININE RATIO, URINE Routine 07/02/2025 1:40 PM EDT ALBUMIN Routine 07/02/2025 1:40 PM EDT ALT Routine 07/02/2025 1:40 PM EDT AST Routine 07/02/2025 1:40 PM EDT CALCIUM Routine 07/02/2025 1:40 PM EDT CREATININE, SERUM Routine 07/02/2025 1:4 0 PM EDT UREA NITROGEN (BUN) Routine 07/02/2025 1 :40 PM EDT ELECTROLYTE PANEL Routine 07/02/2025 1:4 0 PM EDT PROTHROMBIN TIME-INR Routine 07/02/2025 1:40 PM EDT CBC WITH AUTO DIFFERENTIAL Routine 07/02/2025 1:40 PM EDT URINALYSIS, COMPLETE Routine 07/02/2025 1:40 PM EDT CREATININE CLEARANCE Routine 07/02/2025 4:00 AM EDT ECG 12-LEAD Routine 06/27/2025 6:06 PM EDT [...] Recently Relevant to Health Maintenance Results * (ABNORMAL) Proteinase-3 Antibody (07/02/2025 1:40 PM EDT) Proteinase-3 Antibody 2.5(A) [facility] Comment:Value Interpretation ----- <1.0 No Antibody Detected > or = 1.0 Antibody DetectedAutoantibodies to proteinase-3 (SD-3) are accepted ascharacteristic for granulomatosis with polyangiitis(GPA, Bobbi's), and are detectable in 95% of thehistologically proven cases. The cytoplasmic IFApattern, (c-ANCA), is based largely on autoantibody toPR-3 which serves as the primary antigen.These autoantibodies are present in active disease.THIS TEST WAS PERFORMED AT:[employer] [place] [phone] KHAN MD 07/02/2025 1:40 PM EDT 07/02/2025 6:19 PM EDT us Generic External Data Provider LAB BLOOD ORDERAB LES Final Result [facility] [address] [place] [phone] * Myeloperoxidase Antibody (MPO) (07/02/2025 1:40 PM EDT) Myeloperoxidase Antibody <1.0 [facility] Comment:Value Interpretation ----- <1.0 No Antibody Detected > or = 1.0 Antibody DetectedAutoantibodies to myeloperoxidase (MPO) are commonlyassociated with the following small-vesselvasculitides: microscopic polyangiitis,polyarteritis nodosa, Churg-Doug syndrome,necrotizing and crescentic glomerulonephritis andoccasionally granulomatosis with polyangiitis(GPA, Bobbi's). The perinuclear IFA pattern,(p-ANCA) is based largely on autoantibody tomyeloperoxidase which serves as the primary antigen.These autoantibodies are present in active disease.THIS TEST WAS PERFORMED AT:[facility] [address] [id number] KHAN MD 07/02/2025 1:40 PM EDT 07/02/2025 6:19 PM EDT Generic External Data Provider LAB BLOOD ORDERAB LES Final Result Performing Organization Address [facility] Co de Phone Number [facility] [address] [place] [phone] * (ABNORMAL) Protein Creatinine Ratio, Urine (07/02/2025 1:40 PM EDT) Creatinine, Urine 76.90 mg/dL [facility] Protein, Total, Random Urine 180(H) <12 mg/dL [facility] Protein/Creati nine Ratio, Ur 2.34(H) <0.2 [facility] Comment:The spot urine prote in:creatinine ratio may increase to 0.3during normal . 07/02/2025 1:40 PM EDT 07/02/2025 6:00 PM EDT Generic External Data Provider LAB URINE ORDERAB LES Final Result Performing Organization Address [facility] Co de Phone Number [facility] [address] [place] [phone] * Phospholipase A2 Receptor (PLA2R) Antibody Panel (07/02/2025 1:40 PM EDT) Phospholipase A2 Receptor (PLA2R) Ab, NAYE <4 RU/mL [facility] Comment:Reference Range: <14 : NEGATIVE 14-19: BORDERLINE >19: POSITIVE Phospholipase A2 Receptor (PLA2R) Ab, IFA NEGATIVE NEGATIVE [facility] Comment:THIS TEST WAS PERFOR MED AT:[facility] [id number] [place] [phone] HARRINGTON MD,PHD,RAINA 07/02/2025 1:40 PM EDT 07/02/2025 6:19 PM EDT Generic External Data Provider LAB BLOOD ORDERAB LES Final Result Performing Organization Address [facility]/ZIP Co de Phone Number [facility] [address] [place] [phone] * Immunofixation (TERESA), Urine (07/02/2025 1:40 PM EDT) TERESA Interpretation [facility] Comment:No monoclonal protei ns detectedTHIS TEST WAS PERFORMED AT:[facility] [address] [id number] KHAN MD 07/02/2025 1:40 PM EDT 07/02/2025 6:00 PM EDT Generic External Data Provider LAB URINE ORDERAB LES Final Result Performing Organization Address [facility] Co de Phone Number [facility] [address] [place] [phone] * (ABNORMAL) Creatinine, Serum (07/02/2025 1:40 PM EDT) Creatinine, Serum 2.63(H) 0.5 - 1.4 mg/dL [facility] Estimated Glomerular Filt Rate 20 [facility] Comment:Chronic Kidney Disea se: Estimated GFR < 60 mL/min/1.47w4Ujssre Kidney Disease: Estimated GFR < 15 mL/min/1.73m2 07/02/2025 1:40 PM EDT 07/02/2025 6:19 PM EDT us Generic External Data Provider LAB BLOOD ORDERAB LES Final Result [facility] [address] [place] [address] [phone] * CBC auto differential (07/02/2025 1:40 PM EDT) White Blood Count 7.3 4.8 - 10.8 X10*3/uL [facility] Red Blood Count 4.41 4.20 - 5.50 X10*6/uL [facility] Hemoglobin 12.9 12.0 - 16.0 g/dl [facility] Hematocrit 38.2 37.0 - 47.0 % [facility] Mean Corpuscular Volume 86.6 80.0 - 98.0 fL [facility] Mean Corpuscular Hemoglobin 29.3 27.0 - 33.0 pg [facility] Mean Corpuscular HGB Conc 33.8 31.0 - 35.0 g/dl [facility] Red Cell Distribution Width 13.3 11.0 - 16.0 % [facility] Platelet Count 193 160 - 400 X10*3/uL [facility] Mean Platelet Volume 11.0 9.4 - 12.3 fL [facility] Neutrophils Percent Auto 50.9 45 - 73 % [facility] Imm Gran Pct Auto 0.3 0.0 - 0.4 % [facility] Lymphocytes Percent Auto 38.0 20 - 40 % [facility] Monocytes Percent Auto 7.4 2 - 11 % [facility] Eosinophils Percent Auto 2.6 0 - 4 % [facility] Basophils Percent Auto 0.8 0 - 2 % [facility] NRBC Pct Auto 0.0 0.0 - 0.2 /100WBC [facility] Neutrophils Absolute Auto 3.7 2.0 - 8.3 x10*3/uL [facility] Imm Gran Abs Auto 0.02 0.00 - 0.03 X10*3/uL [facility] Lymphocytes Absolute Auto 2.8 1.2 - 4.9 X10*3/uL [facility] Monocytes Absolute Auto 0.5 0.1 - 1.2 X10*3/uL [facility] Eosinophils Absolute Auto 0.2 0.0 - 0.4 X10*3/uL [facility] Basophils Absolute Auto 0.1 0.0 - 0.2 X10*3/uL [facility] NRBC Abs Auto 0.000 0.0 - 0.012 X10*3/uL [facility] 07/02/2025 1:40 PM EDT 07/02/2025 6:19 PM EDT Generic External Data Provider LAB BLOOD ORDERAB LES Final Result Performing Organization Address [facility] Co de Phone Number [facility] [address] [place] [phone] * Glomerular Basement Membrane Antibody (IgG) (07/02/2025 1:40 PM EDT) Glomerular Basement Memebrane Antibody (IgG) <1.0 AI [facility] Comment:Value Interpretation ----- <1.0 No Antibody Detected > or = 1.0 Antibody DetectedTHIS TEST WAS PERFORMED AT:[employer] [place] [id number] KHAN MD 07/02/2025 1:40 PM EDT 07/02/2025 6:19 PM EDT Generic External Data Provider LAB BLOOD ORDERAB LES Final Result Performing Organization Address [facility] Co de Phone Number [facility] [address] [place] [phone] * DNA (ds) Antibody (07/02/2025 1:40 PM EDT) Anti DNA DS Antibody 1 IU/mL [facility] Comment:IU/mL Interpretation < or = 4 Negative 5-9 Indeterminate > or = 10 PositiveTHIS TEST WAS PERFORMED AT:[facility] [address] [phone] KHAN MD 07/02/2025 1:40 PM EDT 07/02/2025 6:19 PM EDT us Generic External Data Provider LAB BLOOD ORDERAB LES Final Result Performing Organization Address [facility] Co de Phone Number [facility] [address] [place] [phone] * Hepatitis B surface antigen, EIA (07/02/2025 1:40 PM EDT) Hepatitis B Surface Ag Negative Negative [facility] 07/02/2025 1:40 PM EDT 07/02/2025 6:19 PM EDT Generic External Data Provider LAB BLOOD ORDERAB LES Final Result Performing Organization Address [facility] de Phone Number [facility] [address] [place] [phone] * Hepatitis B Core Antibody, Total (07/02/2025 1:40 PM EDT) Hepatitis B Core Antibody Nonreactive Nonreactive [facility] 07/02/2025 1:40 PM EDT 07/02/2025 6:19 PM EDT Generic External Data Provider LAB BLOOD ORDERAB LES Final Result Performing Organization Address [facility] de Phone Number [facility] [address] [place] [phone] * (ABNORMAL) Urinalysis Complete (07/02/2025 1:40 PM EDT) Color Urine Yellow [facility] Appearance Urine Hazy [facility] PH 6.0 5.0 - 9.0 [facility] Glucose Urine UA Negative Negative mg/dL [facility] Urine Blood Trace Negative [facility] Specific Chromo - Urine 1.010 1.005 - 1.025 [facility] Urine Protein 100 (2+)(A) Neg-Trace mg/dL [facility] Urine Ketones Negative Negative mg/dL [facility] Nitrite Urine Positive(A) Negative [facility] Leukocyte Esterase Urine Moderate (2+)(A) Negative [facility] RBC Urine 0-2 0 - 2 /HPF [facility] Urine WBC 6-10 0 - 5 /HPF [facility] Urine Squamous Epithelial Cell 3-5 0 - 2 /HPF [facility] Urine Bacteria 2+ None Seen [facility] Hyaline Casts, Urine 0-2 0 - 2 /LPF [facility] 07/02/2025 1:40 PM EDT 07/02/2025 6:00 PM EDT us Generic External Data Provider LAB URINE ORDERAB LES Final Result [facility] [address] [place] [phone] * (ABNORMAL) Prothrombin Time-INR (07/02/2025 1:40 PM EDT) Prothrombin Time 10.4(L) 10.9 - 12.4 SEC [facility] INTERNATIONAL NORM RATIO 0.9 0.9 - 1.1 [facility] Comment:INTERNATIONAL NORMAL IZED RATIO (INR) REFERENCE RANGES Reference RangeFor patients not on anticoagulant therapy: 0.9 - 1.1INR ranges for oral anticoagulanttherapy:For prevention and treatment of venous thrombosis and pulmonary embolism: 2.0 - 3.0For acute myocardial infarction with aspirin therapy: 2.0 - 3.0For acute myocardial infarction without aspirin therapy: 3.0 - 4.0For patients with mechanical prosthetic heart valves: 2.5 - 3.5 07/02/2025 1:40 PM EDT 07/02/2025 6:19 PM EDT us Generic External Data Provider LAB BLOOD ORDERAB LES Final Result Performing Organization Address [facility] Co de Phone Number [facility] [address] [place] [phone] * (ABNORMAL) Immunofixation, Serum (07/02/2025 1:40 PM EDT) IMMUNOGLOBULIN G 1586 600 - 1640 mg/dL [facility] IMMUNOGLOBULIN A 338(A) 47 - 310 mg/dL [facility] Immunoglobulin M 66 50 - 300 mg/dL [facility] Comment:THIS TEST WAS PERFOR MED AT:[employer] [place] [phone] KHAN MD Immunofixation Result [facility] Comment:No monoclonal protei ns detected 07/02/2025 1:40 PM EDT 07/02/2025 6:19 PM EDT us Generic External Data Provider LAB BLOOD ORDERAB LES Final Result Performing Organization Address [facility] Co de Phone Number [facility] [address] [place] [phone] * Complement Component C3c (07/02/2025 1:40 PM EDT) Complement C3 157 83 - 193 mg/dL [facility] Comment:THIS TEST WAS PERFOR MED AT:[facility] [id number] [place] [phone] KHAN MD 07/02/2025 1:40 PM EDT 07/02/2025 6:16 PM EDT us Generic External Data Provider LAB BLOOD ORDERAB LES Final Result Performing Organization Address [facility] Co de Phone Number [facility] [address] [place] [phone] * Complement Component C4c (07/02/2025 1:40 PM EDT) Complement C4 22 15 - 57 mg/dL [facility] Comment:THIS TEST WAS PERFOR MED AT:[employer] [place] [phone] KHAN MD 07/02/2025 1:40 PM EDT 07/02/2025 6:16 PM EDT us Generic External Data Provider LAB BLOOD ORDERAB LES Final Result Performing Organization Address [facility] Co de Phone Number [facility] [address] [place] [phone] * (ABNORMAL) BUN (Blood Urea Nitrogen) (07/02/2025 1:40 PM EDT) Urea Nitrogen (BUN) 36(H) 9 - 16 mg/dL [facility] 07/02/2025 1:40 PM EDT 07/02/2025 6:19 PM EDT Generic External Data Provider LAB BLOOD ORDERAB LES Final Result Performing Organization Address [facility] de Phone Number [facility] [address] [place] [phone] * ALT (07/02/2025 1:40 PM EDT) Alanine Aminotransferase 24 0 - 31 U/L [facility] 07/02/2025 1:40 PM EDT 07/02/2025 6:19 PM EDT Generic External Data Provider LAB BLOOD ORDERAB LES Final Result Performing Organization Address [facility] de Phone Number [facility] [address] [place] [phone] * AST (07/02/2025 1:40 PM EDT) Aspartate Amino Transferase 30 5 - 31 U/L [facility] 07/02/2025 1:40 PM EDT 07/02/2025 6:19 PM EDT us Generic External Data Provider LAB BLOOD ORDERAB LES Final Result Performing Organization Address [facility] Co de Phone Number [facility] [address] [place] [phone] * Hemoglobin A1c (07/02/2025 1:40 PM EDT) Hemoglobin A1c 5.6 <6.0 % [facility] Comment:Hemoglobin A1C Refer ence Range Adults: 4.8 - 6.0 % Non diabetic: < 6.0 % Goal: < 7.0 %Additional Action Suggested: > 8.0 %Note: Hemoglobin A1c results are invalid for patients with abnormal amounts of HbF. Blood transfusions may impact the HbA1c concentration in the patient sample. Estimated Average Glucose 114 mg/dL [facility] Comment:eAG = Estimated ave rage glucose which is %A1C expressed asaverage glucose, using the formula of the [id number] Glucose study (ADAG), Diabetes Care, Vol.31,#8,Apr. 2007 07/02/2025 1:40 PM EDT 07/02/2025 6:18 PM EDT us Generic External Data Provider LAB BLOOD ORDERAB LES Final Result Performing Organization Address [facility] Co de Phone Number [facility] [address] [place] [phone] * Calcium (07/02/2025 1:40 PM EDT) Calcium 9.3 8.4 - 10.2 mg/dL [facility] 07/02/2025 1:40 PM EDT 07/02/2025 6:19 PM EDT Generic External Data Provider LAB BLOOD ORDERAB LES Final Result Performing Organization Address City/[facility] Co de Phone Number [facility] [address] [place] [phone] * Albumin (07/02/2025 1:40 PM EDT) Pathologist [facility] Albumin Level 4.1 3.5 - 5.0 g/dL [facility] 07/02/2025 1:40 PM EDT 07/02/2025 6:19 PM EDT Generic External Data Provider LAB BLOOD ORDERAB LES Final Result Performing Organization Address [facility] Co de Phone Number [facility] [address] [place] [phone] * (ABNORMAL) Electrolyte Panel (07/02/2025 1:40 PM EDT) [facility] Sodium 135 135 - 145 mmol/L [facility] Potassium 4.8 3.3 - 5.1 mmol/L [facility] Chloride 106 96 - 108 mmol/L [facility] Carbon Dioxide 23 22 - 29 mmol/L [facility] Anion Gap 11(L) 12 - 20 [facility] 07/02/2025 1:40 PM EDT 07/02/2025 6:19 PM EDT Generic External Data Provider LAB BLOOD ORDERAB LES Final Result Performing Organization Address [facility] Co de Phone Number [facility] [address] [place] [phone] * (ABNORMAL) Creatinine Clearance (07/02/2025 4:00 AM EDT) Pathologist [facility] Creatinine, Serum 2.63(H) 0.5 - 1.4 mg/dL [facility] Creatinine Clearance 24.3(L) 85 - 125 mL/min [facility] Creatinine, 24 Hour Urine 0.9(L) 1.0 - 2.0 G/Day [facility] Creatinine, Urine 40.95 [facility] Urine Total Volume 24 Hour 2,250 mL [facility] 07/02/2025 4:00 AM EDT 07/02/2025 6:26 PM EDT Serge [facility] - 07/02/2025 7:21 PM EDT [phone] us Generic External Data Provider LAB BLOOD ORDERAB LES Final Result [facility] [address] [place] [phone] * ECG 12 lead (06/27/2025 6:06 PM EDT) Samreen Saavedra NP - 06/27/2025 6:06 PM EDT HR 65 bpm, no ST changes; sinus arrhythmia EKG us Samreen Pacheco NP ECG ORDERABLES Final Result * (ABNORMAL) Lipid Panel, Standard (04/02/2025 8:44 AM EDT) Triglycerides 183(H) <150 mg/dL [facility] Comment:Desirable Triglyceri de: less than 150 mg/dLBorderline High Triglyceride 150-199 mg/dLHigh Triglyceride: 200-499 mg/dLVery High Triglyceride: greater than or equal to 5OO mg/dL Cholesterol 224(H) <200 mg/dL [facility] Comment:Desirable Cholestero l: less than 200 mg/dLBorderline High Cholesterol: 200-239 mg/dLHigh Cholesterol: greater than 239 mg/dL LDL Cholesterol Calculated 140(H) <100 mg/dL [facility] Comment:Desirable LDL: less than 100 mg/dLNear Optimal/Above Optimal LDL: 110- 129 mg/dLBorderline High LDL: 130-159 mg/dLHigh LDL: 160-189 mg/dLVery High LDL: greater than or equal to 190 mg/dL HDL Cholesterol 48 >40 mg/dL [facility] Comment:Desirable HDL: great er than 40 mg/dL Note: This HDL assay may give artificially low results in patients with liver disease. Blood Venous blood specimen / Unknown 04/02/2025 8:44 AM EDT 04/02/2025 11:17 AM EDT Samreen Pacheco [facility] BLOOD ORDERABLES Final Resu lt [facility] [address] [place] [phone] * Hepatitis C Antibody with Reflex to HCV, RNA, Quantitative, Real-Time PCR (02/10/2023 11:42 AM EDT) Hepatitis C Antibody NON-REACT HARSHAD NON-REACT HARSHAD [facility] [place] [employer] Index 0.03 <1.00 [facility] [place] [employer] Comment: HCV antibody was non-reactive. There is no laboratory evidence of HCV infection. In most cases, no further action is required. However, if recent HCV exposure is suspected, a test for HCV RNA (test code 62349) is suggested. For additional information please refer to http://education.[employer]/faq/USU36w6 (This link is being provided for informational/ educational purposes only.) Blood Venous blood specimen / Unknown 02/10/2023 11:42 AM EDT 02/10/2023 11:43 AM EDT Narrative [facility] - 02/12/2023 4:32 PM EDT FASTING:NO FASTING: NO Fatou Colby [facility] BLOOD ORDERABLES Benita l Result Performing Organization Address City/[facility]/ZIP Co de Phone Number [facility] [address], [place] [address] [facility] [place] [employer] [address] [place] [address] * HIV-1/2 Antigen and Antibodies, Fourth Generation, with Reflexes (02/10/2023 11:42 AM EDT) Pathologist [facility] HIV Antigen/Antibody, 4th Generation NON-REAC TIVE NON-REAC TIVE [facility] [place] [employer] Comment: HIV-1 antigen and HIV-1/HIV-2 antibodies were [...] purpose. For additional information please refer to http://education.[employer]/faq/WNH096 (This link is being provided for informational/ educational purposes only.) The performance of this assay has not been clinically validated in patients less than 2 years old. Blood Venous blood specimen / Unknown 02/10/2023 11:42 AM EDT 02/10/2023 11:43 AM EDT Narrative [facility] - 02/12/2023 4:32 PM EDT FASTING:NO FASTING: NO Fatou Colby [facility] BLOOD ORDERABLES Benita l Result [facility] [address], [place] [address] [facility] [address] [place] [address] * Image-Guided Pap with Age-Based Screening??with CT/NG,??Trichomonas (02/10/2023 11:27 AM EDT) Comment [facility] Comment: This order for age-based cervical cancer and STI screening follows ACOG guidelines(PB 168, 140, MYT649). See individual assays for performing site location. Clinical Information: RTN SCREEN [facility] [employer] LMP: NONE GIVEN [facility] Prev. PAP: NONE GIVEN [facility] [employer] Prev. BX: NONE GIVEN [facility] SOURCE: None given [facility] [employer] Statement Of Adequacy: [facility] Comment: Satisfactory for evaluation. Endocervical/transformation zone component absent. Interpretation/Re sult: Negative for intraepithelial lesion or malignancy. [facility] Infection Shift in vaginal hui suggestive of bacterial vaginosis. [facility] [place] [employer] COMMENT: This Pap test has been evaluated with computer assisted technology. [facility] [place] [employer] Core Blower Operator: Charbel [employer] [place] [employer] Comment: DCR, CT(ASCP) CT screening location: [place] [address] Review Core Blower Operator: [facility] [place] [facility] Comment: WAC, CT(ASCP) CT screening location: [place] [address] (Always Message) Que st [employer] Comment: EXPLANATORY NOTE: The Pap is a [...] HPV nRNA E6/E7 Not Detected Not Detected [employer] Comment: Methodology: Lock Setter-Mediated Amplification This assay detects E6/E7 viral messenger RNA (mRNA) from 14 high-risk HPV types (16,18,31,33,35,39,45,51,52,56,58,59,66,68). Cervical sources are required for HPV testing. If a vaginal source from a patient who has had a total hysterectomy with removal of cervix was submitted, please contact the testing laboratory for alternative testing options. For additional information, please refer to http://A2B.[employer]/faq/VBH989t5 (This link if provided for information/ educational purposes only.) Chlamydia trachomatis RNA, TMA, Urogenital NOT DETECTED NOT DETECTED [employer] Neisseria gonorrhoeae RNA, TMA, Urogenital NOT DETECTED NOT DETECTED [employer] Comment [employer] Comment: The analytical performance characteristics of this assay, when used to test SurePath(TM) specimens have been determined by [facility]. The modifications have not been cleared or approved by the FDA. This assay has been validated pursuant to the CLIA regulations and is used for clinical purposes. For additional information, please refer to https://A2B.[employer]/faq/BKX406 (This link is being provided for information/ educational purposes only.) Trichomonas vaginalis, QL, TMA, PAP Vial NOT DETECTED NOT DETECTED [employer] Comment: The analytical performance characteristics of this assay have been determined by [facility]. The modifications have not been cleared or approved by the FDA. This assay has been validated pursuant to the CLIA regulations and is used for clinical purposes. For additional information, please refer to http://A2B.[employer]/ faq/Trichomonastma (This link is being provided for information/ educational purposes only.) Pap Vial 02/10/2023 11:2 7 AM EDT 02/11/2023 7:10 AM EDT Fatou Colby [facility] CYTOLOGY ORDERABLES F inal Result [facility] [address], [place] [address] [facility] [place] [employer] 200 [place] [address] from Last 3 Months or Most Recently Relevant to Health Maintenance Insurance C3 Care Teams Trim Stencil Maker Relationship Specialty Start Date End Date Samreen Pacheco NP [address] [place] [phone] PCP - General Family Medicine 07/06/23
--- OUTSIDE RECORDS SUMMARY | 2025-07-12 19:29 | XMS_ITS | Encounter Summary ---
Author Organization [employer] Address [address] [facility] 7t [place] [address] Care Team Providers Care Auto Bench Mechanic Name Role Phone Junior Samreen CHARLES Primary Care Provider [phone] Reason for Visit * Reason Comments Med Refill Encounter Details Date Type Department Care Team ([facility] st Contact Info) Description 03/18/2024 Refill [facility] MEDICINE [address] [place] [address] Channing Menchaca AGNP Uncontrolled hypertension; Edema of [...] Office Visit [facility] MEDICINE [address] [place] [address] Samreen Pacheco NP [address] [place] [address] documented as of this encounter Visit Diagnoses Diagnosis Uncontrolled hypertension Edema of both lower legs documented in this encounter Additional Health Concerns Assessment Noted Time PHQ-9 Depression Total Score: 8 01/12/20 24 2:34 PM EDT documented as of this encounter Care Teams Auto Bench Mechanic Relationship Specialty Start Date End Date Samreen Pacheco NP [address] [place] [address] PCP - General Family Medicine 07/06/23 documented as of this encounter
--- OUTSIDE RECORDS SUMMARY | 2025-07-12 19:29 | XMS_ITS | Encounter Summary ---
Author Organization [employer] Address [address] [facility] 7 [place] [address] Care Team Providers Care Youth Probation Officer Name Role Phone Samreen Pacheco NP Primary Care Provider [phone] Reason for Visit * Reason Comments Med Change Request Encounter Details Date Type Department Care Team ([facility] st Contact Info) Description 12/10/[address] [facility] MEDICINE [address] [place] [address] Samreen Pacheco NP [address] [place] [address] Uncontrolled hypertension Social History Tobacco Use Types [...] PM EST Office Visit [facility] MEDICINE [address] [place] [address] aSmreen Pacheco NP [address] [place] [address] documented as of this encounter Visit Diagnoses Diagnosis Uncontrolled hypertension documented in this encounter Additional Health Concerns Assessment Noted Time PHQ-9 Depression Total Score: 24 024 2:45 PM EST documented as of this encounter Care Teams Youth Probation Officer Relationship Specialty Start Date End Date Samreen Pacheco NP [address] [place] [address] PCP - General Family Medicine 07/06/23 documented as of this encounter
== END 2025-07-12 16:47 | disposition home or self-care (01) ==
LOC: HO.HKAS 15:48
PROVIDERS: PCP Nurse Practitioner; Visit Provider Internal Medicine Nephrology
DX: I12.9 Hypertensive chronic kidney disease with stage 1 through stage 4 chronic kidney disease, or unspecified chronic kidney disease (principal); N18.4 Chronic kidney disease, stage 4 (severe); N25.81 Secondary hyperparathyroidism of renal origin; R80.8 Other proteinuria
CPT/HCPCS: 99214

== ENCOUNTER → 2025-07-12 15:47 | Outpatient (BNVA) | payer MEDICAID, SELFPAY | PROVIDERS: PCP Nurse Practitioner; Visit Provider Internal Medicine Nephrology | DX: I10 Essential (primary) hypertension (principal); R80.8 Other proteinuria; N18.4 Chronic kidney disease, stage 4 (severe); N25.81 Secondary hyperparathyroidism of renal origin | CPT/HCPCS: 99212 ==

== ENCOUNTER 2025-07-20 07:59 | Outpatient (REF) | payer MEDICAID, SELFPAY ==
--- NOTE | ~2025-07-20 | US_ITS ---
EXAMINATION: US KIDNEY BILATERAL HISTORY: I10 - Essential (primary) hypertension TECHNIQUE: Real-time grayscale ultrasound imaging of the kidneys was performed and images were reviewed. COMPARISON: Comparison is made with the prior examination dated 08/05/2020. FINDINGS: Right kidney: The right kidney measures 9.6 x 5.6 x 5.1 cm. There is diffusely increased renal cortical echotexture, consistent with chronic medical renal disease. There is a 7 mm upper pole cyst. Multiple nonobstructing calculi are noted including a 5 x 3 x 5 mm calculus in the interpolar region and lower pole calculi measuring 13 x 6 x 11 mm and 4 x 4 by 2 x 3 mm. There is fullness of the renal pelvis. Left Kidney: The left kidney measures 12.4 x 5.3 x 4.2 cm. There is diffusely increased renal cortical echotexture, consistent with chronic medical renal disease. There are upper pole cyst measuring 2.6 x 2.1 x 2.8 cm and 0.8 x 0.8 x 0.7 cm. There are nonobstructing calculi in the interpolar region measuring 3 x 2 x 3 mm and 4 x 4 by 3 x 4 mm. There is a lower pole calculus measuring 6 x 2 x 6 mm. There is fullness of the renal pelvis. US/US renal BI IMPRESSION: 1. Increased renal echotexture, consistent with chronic medical renal disease. 2. Bilateral nephrolithiasis as described. 3. Fullness of the bilateral renal pelves. No hydronephrosis. Electronically signed by: Lloyd Hernandez MD 07/20/2025 09:12 AM EDT
--- OUTSIDE RECORDS SUMMARY | 2025-07-20 08:05 | XMS_ITS | Encounter Summary ---
Author Organization [facility] Address [address] [place] [address] [place] [address] Care Team Providers Care Kitchen Porter Name Role Phone Michael Campbell MD Primary Care Provider Giselle Bermudez Primary Care Provider Samreen Gilmore NP Primary Care Provider [phone] Encounter Details Date Type Department Care Team (Latest Contact Info) Description 08/21/2019 Abstract [facility] CONVERSIONS Dental, Provider, DDS Social History [...] Description 08/06/2025 3:15 PM EST Office Visit [facility] MEDICINE [address] [place] [address] Samreen Pacheco NP [address] [place] [address] documented as of this encounter Visit Diagnoses Not on filedocumented in this encounter Care Teams Kitchen Porter Relationship Specialty Start Date End Date Michael Campbell MD PCP - General Family Medicine 07/05/19 08/23/22 Giselle Hamlin FNP PCP - General Family Medicine 08/24/22 07/05/23 Samreen Pacheco NP [address] [place] [address] PCP - General Family Medicine 07/06/23 documented as of this encounter
--- OUTSIDE RECORDS SUMMARY | 2025-07-20 08:05 | XMS_ITS | Encounter Summary ---
Author Organization [employer] Address [address] [facility] [address] [place] [address] Care Team Providers Care Social Insurance Specialist Name Role Phone Samreen Pacheco NP Primary Care Provider [phone] Encounter Details Date Type Department Care Team ([facility] st Contact Info) Description 11/22/2023 Telephone [facility] MEDICINE [address] [place], [place] [phone] Samreen Pacheco NP [address] [place] [address] Social History Tobacco Use Types Packs/Day Years [...] T/C to pt. For below message through [employer]Pay id - [id number] for below message and status check, pt. States she is doing O.K. pt. Does not has any new symptoms right now, advised to go to nearest ED in case of any new or worsening symptoms including CP, SOB or breathing problem.. [facility] hours are informed. Operative notes are scanned into pt.'s chart. * Telephone Encounter - Samreen Pacheco NP - 11/23/2023 9:33 AM EST Noted. Thank you * Telephone Encounter - La Rod RN - 11/22/2023 4:28 PM EST TC placed to patient via [employer] regarding two recent messages below. Patient didn't answer. TC placed to patient without motor vehicle parts interpreter line. Patient states she had surgery to remove a kidney stone today at [facility] and is resting at home. Notes not [...] to look for [facility] notes as this ticket writer does not have access. Tc from rochelle lead warehouse associate with [facility] urology would like to inform PCP that provider Mary is recommending a [facility] cardiology referral for chest pain and and exertion and also is requesting a referral for nephrology, states pt creatinine levels are 2.5. If any questions or concerns please contact at [phone] ARACELI Velasco [facility] Team Nurses Caller: Unspecified (Today, 10:17 [...] 3:15 PM EST Office Visit [facility] MEDICINE [address] [place] [address] Samreen Pacheco NP [address] [place] [address] documented as of this encounter Visit Diagnoses Not on filedocumented in this encounter Additional Health Concerns Assessment Noted Time PHQ-9 Depression Total Score: 16 023 3:41 PM EDT documented as of this encounter Care Teams Social Insurance Specialist Relationship Specialty Start Date End Date Samreen Pacheco NP [address] [place] [address] PCP - General Family Medicine 07/06/23 documented as of this encounter
--- OUTSIDE RECORDS SUMMARY | 2025-07-20 08:05 | XMS_ITS | Clinical Summary ---
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 EKG : NSR, HR 76 bpm, [...] osteodystrophy 04/07/2022 Stage 3b chronic kidney disease ([facility]) 2020 Assessment & Plan (02/24/2023 [...] PLAN FOR MODERATE MAJOR DEPRESSION, SINGLE EPISODE ([facility]) WRITTEN ON 02/11/2023 4:08 PM BY LINDA LORD MD Pt has a history of depression, currently denies any SI. PHQ9 16 Will ask our [facility] clinician to contact her Assessment [...] a nd albumin creatinine ratio >300 mg/g ([facility]) 08/05/2012 Assessment & Plan (05/30/2025 [...] Data 06/27/2025 3:15 PM EDT Office Visit [facility] [address] [place] [phone] Samreen Pacheco NP Hypertensive urgency (Primary Dx); CKD stage G4/A3, GFR 15-29 and albumin creatinine ratio >300 mg/g ([facility]) ([facility]) 06/27/2025 Travel 05/30/2025 Results Follow-Up [address] [address] Samreen Pacheco NP Comprehensive Metabolic Panel, Albumin, Random Urine W/Creatinine, Vitamin D, 25-Hydroxy, Total, Immunoassay, Additional followed-up results: 2 05/08/[address] [address] Joe [place] June recall from Last [...] Description 08/06/2025 3:15 PM EST Office Visit [facility] [address] [place] [address] Samreen Pacheco NP [address] [place] [address] Health Maintenance Due Date Last Done Comments [...] (07/02/2025 1:40 PM EDT) Proteinase-3 Antibody 2.5(A) [facility] Comment:Value Interpretation ----- <1.0 No Antibody Detected > or = 1.0 Antibody DetectedAutoantibodies to proteinase-3 (AL-3) are accepted ascharacteristic for granulomatosis with polyangiitis(GPA, Bobbi's), and are detectable in 95% of thehistologically proven cases. The cytoplasmic IFApattern, (c-ANCA), is based largely on autoantibody toPR-3 which serves as the primary antigen.These autoantibodies are present in active disease.THIS TEST WAS PERFORMED AT:[facility] [place] [id number] KHAN MD 07/02/2025 1:40 PM EDT 07/02/2025 6:19 PM EDT us Generic External Data Provider LAB BLOOD ORDERAB LES Final Result [facility] [address] [place] [phone] * Myeloperoxidase Antibody (MPO) (07/02/2025 1:40 PM EDT) Myeloperoxidase Antibody <1.0 [facility] Comment:Value Interpretatio n ----- <1.0 No Antibody Detected > or = 1.0 Antibody DetectedAutoantibodies to myeloperoxidase (MPO) are commonlyassociated with the following small-vesselvasculitides: microscopic polyangiitis,polyarteritis nodosa, Churg-Doug syndrome,necrotizing and crescentic glomerulonephritis andoccasionally granulomatosis with polyangiitis(GPA, Bobbi's). The perinuclear IFA pattern,(p-ANCA) is based largely on autoantibody tomyeloperoxidase which serves as the primary antigen.These autoantibodies are present in active disease.THIS TEST WAS PERFORMED AT:[facility] [place] [phone] KHAN MD 07/02/2025 1:40 PM EDT 07/02/2025 6:19 PM EDT Generic External Data Provider LAB BLOOD ORDERAB LES Final Result Performing Organization Address [facility] Co de Phone Number [facility] [address] [place] [phone] * (ABNORMAL) Protein Creatinine Ratio, Urine (07/02/2025 1:40 PM EDT) Creatinine, Urine 76.90 mg/dL [facility] Protein, Total, Random Urine 180(H) <12 mg/dL [facility] Protein/Creati nine Ratio, Ur 2.34(H) <0.2 [facility] Comment:The spot urine prote in:creatinine ratio may increase to 0.3during normal . 07/02/2025 1:40 PM EDT 07/02/2025 6:00 PM EDT us Generic External Data Provider LAB URINE ORDERAB LES Final Result Performing Organization Address [facility] Co de Phone Number [facility] [address] [place] [phone] * Phospholipase A2 Receptor (PLA2R) Antibody Panel (07/02/2025 1:40 PM EDT) Phospholipase A2 Receptor (PLA2R) Ab, NAYE <4 RU/mL [facility] Comment:Reference Range: <14 : NEGATIVE 14-19: BORDERLINE >19: POSITIVE Phospholipase A2 Receptor (PLA2R) Ab, IFA NEGATIVE NEGATIVE [facility] Comment:THIS TEST WAS PERFOR MED AT:[facility] [id number] [place] [place] [phone] HARRINGTON MD,PHD,RAINA 07/02/2025 1:40 PM EDT 07/02/2025 6:19 PM EDT Generic External Data Provider LAB BLOOD ORDERAB LES Final Result Performing Organization Address City/[facility]/ZIP Co de Phone Number [facility] [address] [place] [phone] * Immunofixation (TERESA), Urine (07/02/2025 1:40 PM EDT) TERESA Interpretation [facility] Comment:No monoclonal protei ns detectedTHIS TEST WAS PERFORMED AT:[facility] [address] [phone] KHAN MD 07/02/2025 1:40 PM EDT 07/02/2025 6:00 PM EDT Generic External Data Provider LAB URINE ORDERAB LES Final Result Performing Organization Address City/[facility]/ZIP Co de Phone Number [facility] [address] [place] [phone] * (ABNORMAL) Creatinine, Serum (07/02/2025 1:40 PM EDT) Creatinine, Serum 2.63(H) 0.5 - 1.4 mg/dL [facility] Estimated Glomerular Filt Rate 20 [facility] Comment:Chronic Kidney Disea se: Estimated GFR < 60 mL/min/1.47t4Uuirfn Kidney Disease: Estimated GFR < 15 mL/min/1.73m2 07/02/2025 1:40 PM EDT 07/02/2025 6:19 PM EDT us Generic External Data Provider LAB BLOOD ORDERAB LES Final Result [facility] [address] [place] [phone] [phone] * CBC auto differential (07/02/2025 1:40 PM EDT) White Blood Count 7.3 4.8 - 10.8 X10*3/uL [facility] Red Blood Count 4.41 4.20 - 5.50 X10*6/uL [facility] Hemoglobin 12.9 12.0 - 16.0 g/dl [facility] Hematocrit 38.2 37.0 - 47.0 % [facility] Mean Corpuscular Volume 86.6 80.0 - 98.0 fL [facility] Mean Corpuscular Hemoglobin 29.3 27.0 - 33.0 pg [facility] Mean Corpuscular HGB Conc 33.8 31.0 - 35.0 g/dl [facility] Red Cell Distribution Width 13.3 11.0 - 16.0 % [facility] Platelet Count 193 160 - 400 X10*3/uL [facility] Mean Platelet Volume 11.0 9.4 - 12.3 fL [facility] Neutrophils Percent Auto 50.9 45 - 73 % [facility] Imm Gran Pct Auto 0.3 0.0 - 0.4 % [facility] Lymphocytes Percent Auto 38.0 20 - 40 % [facility] Monocytes Percent Auto 7.4 2 - 11 % [facility] Eosinophils Percent Auto 2.6 0 - 4 % [facility] Basophils Percent Auto 0.8 0 - 2 % [facility] NRBC Pct Auto 0.0 0.0 - 0.2 /100WBC [facility] Neutrophils Absolute Auto 3.7 2.0 - 8.3 x10*3/uL [facility] Imm Gran Abs Auto 0.02 0.00 - 0.03 X10*3/uL [facility] Lymphocytes Absolute Auto 2.8 1.2 - 4.9 X10*3/uL [facility] Monocytes Absolute Auto 0.5 0.1 - 1.2 X10*3/uL [facility] Eosinophils Absolute Auto 0.2 0.0 - 0.4 X10*3/uL [facility] Basophils Absolute Auto 0.1 0.0 - 0.2 X10*3/uL [facility] NRBC Abs Auto 0.000 0.0 - 0.012 X10*3/uL [facility] 07/02/2025 1:40 PM EDT 07/02/2025 6:19 PM EDT Generic External Data Provider LAB BLOOD ORDERAB LES Final Result Performing Organization Address [facility] Co de Phone Number [facility] [address] [place] [phone] * Glomerular Basement Membrane Antibody (IgG) (07/02/2025 1:40 PM EDT) Glomerular Basement Memebrane Antibody (IgG) <1.0 AI [facility] Comment:Value Interpretation ----- <1.0 No Antibody Detected > or = 1.0 Antibody DetectedTHIS TEST WAS PERFORMED AT:[employer] [facility] [place] [id number] KHAN MD 07/02/2025 1:40 PM EDT 07/02/2025 6:19 PM EDT us Generic External Data Provider LAB BLOOD ORDERAB LES Final Result Performing Organization Address [facility] Co de Phone Number [facility] [address] [place] [phone] * DNA (ds) Antibody (07/02/2025 1:40 PM EDT) Anti DNA DS Antibody 1 IU/mL [facility] Comment:IU/mL Interpretation < or = 4 Negative 5-9 Indeterminate > or = 10 PositiveTHIS TEST WAS PERFORMED AT:[facility] [address] [id number] KHAN MD 07/02/2025 1:40 PM EDT 07/02/2025 6:19 PM EDT Generic External Data Provider LAB BLOOD ORDERAB LES Final Result Performing Organization Address [facility] Co de Phone Number [facility] [address] [place] [phone] * Hepatitis B surface antigen, EIA (07/02/2025 1:40 PM EDT) Hepatitis B Surface Ag Negative Negative [facility] 07/02/2025 1:40 PM EDT 07/02/2025 6:19 PM EDT Generic External Data Provider LAB BLOOD ORDERAB LES Final Result Performing Organization Address [facility] Co de Phone Number [facility] [address] [place] [phone] * Hepatitis B Core Antibody, Total (07/02/2025 1:40 PM EDT) Hepatitis B Core Antibody Nonreactive Nonreactive [facility] 07/02/2025 1:40 PM EDT 07/02/2025 6:19 PM EDT Generic External Data Provider LAB BLOOD ORDERAB LES Final Result Performing Organization Address [facility] de Phone Number [facility] [address] [place] [phone] * (ABNORMAL) Urinalysis Complete (07/02/2025 1:40 PM EDT) Color Urine Yellow [facility] Appearance Urine Hazy [facility] PH 6.0 5.0 - 9.0 [facility] Glucose Urine UA Negative Negative mg/dL [facility] Urine Blood Trace Negative [facility] Specific Omega - Urine 1.010 1.005 - 1.025 [facility] Urine Protein 100 (2+)(A) Neg-Trace mg/dL [facility] Urine Ketones Negative Negative mg/dL [facility] Nitrite Urine Positive(A) Negative [facility] Leukocyte Esterase Urine Moderate (2+)(A) Negative [facility] RBC Urine 0-2 0 - 2 /HPF [facility] Urine WBC 6-10 0 - 5 /HPF [facility] Urine Squamous Epithelial Cell 3-5 0 - 2 /HPF [facility] Urine Bacteria 2+ None Seen [facility] Hyaline Casts, Urine 0-2 0 - 2 /LPF [facility] 07/02/2025 1:40 PM EDT 07/02/2025 6:00 PM EDT us Generic External Data Provider LAB URINE ORDERAB LES Final Result [facility] [address] [place] [phone] * (ABNORMAL) Prothrombin Time-INR (07/02/2025 1:40 PM EDT) Prothrombin Time 10.4(L) 10.9 - 12.4 SEC [facility] INTERNATIONAL NORM RATIO 0.9 0.9 - 1.1 [facility] Comment:INTERNATIONAL NORMAL IZED RATIO (INR) REFERENCE [...] ORDERAB LES Final Result Performing Organization Address City/[facility]/ZIP Co de Phone Number [facility] [address] [place] [phone] * (ABNORMAL) Immunofixation, Serum (07/02/2025 1:40 PM EDT) IMMUNOGLOBULIN G 1586 600 - 1640 mg/dL [facility] IMMUNOGLOBULIN A 338(A) 47 - 310 mg/dL [facility] Immunoglobulin M 66 50 - 300 mg/dL [facility] Comment:THIS TEST WAS PERFOR MED AT:[employer] [facility] [place] [phone] KHAN MD Immunofixation Result [facility] Comment:No monoclonal protei ns detected 07/02/2025 1:40 PM EDT 07/02/2025 6:19 PM EDT Generic External Data Provider LAB BLOOD ORDERAB LES Final Result Performing Organization Address [facility] Co de Phone Number [facility] [address] [place] [phone] * Complement Component C3c (07/02/2025 1:40 PM EDT) Complement C3 157 83 - 193 mg/dL [facility] Comment:THIS TEST WAS PERFOR MED AT:[employer] [id number] [place] [id number] KHAN MD 07/02/2025 1:40 PM EDT 07/02/2025 6:16 PM EDT us Generic External Data Provider LAB BLOOD ORDERAB LES Final Result Performing Organization Address City/[facility]/ZIP Co de Phone Number [facility] [address] [place] [phone] * Complement Component C4c (07/02/2025 1:40 PM EDT) Complement C4 22 15 - 57 mg/dL [facility] Comment:THIS TEST WAS PERFOR MED AT:[employer] [facility] [place] [id number] KHAN MD 07/02/2025 1:40 PM EDT 07/02/2025 6:16 PM EDT us Generic External Data Provider LAB BLOOD ORDERAB LES Final Result Performing Organization Address [facility] Co de Phone Number [facility] [address] [place] [phone] * (ABNORMAL) BUN (Blood Urea Nitrogen) (07/02/2025 1:40 PM EDT) Urea Nitrogen (BUN) 36(H) 9 - 16 mg/dL [facility] 07/02/2025 1:40 PM EDT 07/02/2025 6:19 PM EDT Generic External Data Provider LAB BLOOD ORDERAB LES Final Result Performing Organization Address [facility] de Phone Number [facility] [address] [place] [phone] * ALT (07/02/2025 1:40 PM EDT) Alanine Aminotransferase 24 0 - 31 U/L [facility] 07/02/2025 1:40 PM EDT 07/02/2025 6:19 PM EDT Generic External Data Provider LAB BLOOD ORDERAB LES Final Result Performing Organization Address [facility] de Phone Number [facility] [address] [place] [phone] * AST (07/02/2025 1:40 PM EDT) Aspartate Amino Transferase 30 5 - 31 U/L [facility] 07/02/2025 1:40 PM EDT 07/02/2025 6:19 PM EDT us Generic External Data Provider LAB BLOOD ORDERAB LES Final Result Performing Organization Address [facility] Co de Phone Number [facility] [address] [place] [phone] * Hemoglobin A1c (07/02/2025 1:40 PM EDT) Hemoglobin A1c 5.6 <6.0 % [facility] Comment:Hemoglobin A1C Refer ence Range Adults: 4.8 - 6.0 % Non diabetic: < 6.0 % Goal: < 7.0 %Additional Action Suggested: > 8.0 %Note: Hemoglobin A1c results are invalid for patients with abnormal amounts of HbF. Blood transfusions may impact the HbA1c concentration in the patient sample. Estimated Average Glucose 114 mg/dL [facility] Comment:eAG = Estimated ave rage glucose which is %A1C expressed asaverage glucose, using the formula of the Q3K-IiaiegsMegrcbm Glucose study (ADAG), Diabetes Care, Vol.31,#8,Apr. 2007 07/02/2025 1:40 PM EDT 07/02/2025 6:18 PM EDT us Generic External Data Provider LAB BLOOD ORDERAB LES Final Result Performing Organization Address [facility] Co de Phone Number [facility] [address] [place] [phone] * Calcium (07/02/2025 1:40 PM EDT) Calcium 9.3 8.4 - 10.2 mg/dL [facility] 07/02/2025 1:40 PM EDT 07/02/2025 6:19 PM EDT Generic External Data Provider LAB BLOOD ORDERAB LES Final Result Performing Organization Address [facility] Co de Phone Number [facility] [address] [place] [phone] * Albumin (07/02/2025 1:40 PM EDT) Pathologist [facility] Albumin Level 4.1 3.5 - 5.0 g/dL [facility] 07/02/2025 1:40 PM EDT 07/02/2025 6:19 PM EDT Generic External Data Provider LAB BLOOD ORDERAB LES Final Result Performing Organization Address [facility] Co de Phone Number [facility] [address] [place] [phone] * (ABNORMAL) Electrolyte Panel (07/02/2025 1:40 PM EDT) [facility] Sodium 135 135 - 145 mmol/L [facility] Potassium 4.8 3.3 - 5.1 mmol/L [facility] Chloride 106 96 - 108 mmol/L [facility] Carbon Dioxide 23 22 - 29 mmol/L [facility] Anion Gap 11(L) 12 - 20 [facility] 07/02/2025 1:40 PM EDT 07/02/2025 6:19 PM EDT us Generic External Data Provider LAB BLOOD ORDERAB LES Final Result Performing Organization Address [facility] Co de Phone Number [facility] [address] [place] [phone] * (ABNORMAL) Creatinine Clearance (07/02/2025 4:00 AM EDT) Pathologist [facility] Creatinine, Serum 2.63(H) 0.5 - 1.4 mg/dL [facility] Creatinine Clearance 24.3(L) 85 - 125 mL/min [facility] Creatinine, 24 Hour Urine 0.9(L) 1.0 - 2.0 G/Day [facility] Creatinine, Urine 40.95 [facility] Urine Total Volume 24 Hour 2,250 mL [facility] 07/02/2025 4:00 AM EDT 07/02/2025 6:26 PM EDT Serge [facility] - 07/02/2025 7:21 PM EDT [id number] us Generic External Data Provider LAB BLOOD ORDERAB LES Final Result [facility] [address] [place] [phone] * ECG 12 lead (06/27/2025 6:06 PM EDT) Samreen Saavedra NP - 06/27/2025 6:06 PM EDT HR 65 bpm, no ST changes; sinus arrhythmia EKG us Samreen Pacheco NP ECG ORDERABLES Final Result * (ABNORMAL) Lipid Panel, Standard (04/02/2025 8:44 AM EDT) Triglycerides 183(H) <150 mg/dL [facility] Comment:Desirable Triglyceri de: less than 150 mg/dLBorderline High Triglyceride 150-199 mg/dLHigh Triglyceride: 200-499 mg/dLVery High Triglyceride: greater than or equal to 5OO mg/dL Cholesterol 224(H) <200 mg/dL [facility] Comment:Desirable Cholestero l: less than 200 mg/dLBorderline High Cholesterol: 200-239 mg/dLHigh Cholesterol: greater than 239 mg/dL LDL Cholesterol Calculated 140(H) <100 mg/dL [facility] Comment:Desirable LDL: less than 100 mg/dLNear Optimal/Above Optimal LDL: 110- 129 mg/dLBorderline High LDL: 130-159 mg/dLHigh LDL: 160-189 mg/dLVery High LDL: greater than or equal to 190 mg/dL HDL Cholesterol 48 >40 mg/dL [facility] Comment:Desirable HDL: great er than 40 mg/dL Note: This HDL assay may give artificially low results in patients with liver disease. Blood Venous blood specimen / Unknown 04/02/2025 8:44 AM EDT 04/02/2025 11:17 AM EDT Samreen Pacheco [employer] LAB BLOOD ORDERABLES Final Resu lt Performing Organization Address City/[facility]/ZIP Co de Phone Number [facility] [address] [place] [phone] * Hepatitis C Antibody with Reflex to HCV, RNA, Quantitative, Real-Time PCR (02/10/2023 11:42 AM EDT) Hepatitis C Antibody NON-REACT HARSHAD NON-REACT HARSHAD [facility] Index 0.03 <1.00 [facility] Comment: HCV antibody was non-reactive. There is no laboratory evidence of HCV infection. In most cases, no further action is required. However, if recent HCV exposure is suspected, a test for HCV RNA (test code 50021) is suggested. For additional information please refer to http://education.[employer]xUpClose/faq/GNI39z8 (This link is being provided for informational/ educational purposes only.) Blood Venous blood specimen / Unknown 02/10/2023 11:42 AM EDT 02/10/2023 11:43 AM EDT Narrative [facility] - 02/12/2023 4:32 PM EDT FASTING:NO FASTING: NO Result [facility] Fatou Colby [facility] BLOOD ORDERABLES Benita l Result [facility] [address], [place] [address] [facility] [address] [place] [address] * HIV-1/2 Antigen and Antibodies, Fourth Generation, with Reflexes (02/10/2023 11:42 AM EDT) HIV Antigen/Antibody, 4th Generation NON-REAC TIVE NON-REAC TIVE [employer] Comment: HIV-1 antigen and HIV-1/HIV-2 antibodies were [...] purpose. For additional information please refer to http://education.DxUpClose/faq/SAY889 (This link is being provided for informational/ educational purposes only.) The performance of this assay has not been clinically validated in patients less than 2 years old. Blood Venous blood specimen / Unknown 02/10/2023 11:42 AM EDT 02/10/2023 11:43 AM EDT Narrative [facility] - 02/12/2023 4:32 PM EDT FASTING:NO FASTING: NO Fatou Colby [facility] BLOOD ORDERABLES Benita l Result [facility] [address], [place] [address] [facility] [address] [place] [address] * Image-Guided Pap with Age-Based Screening??with CT/NG,??Trichomonas (02/10/2023 11:27 AM EDT) Comment [facility] Comment: This order for age-based cervical cancer and STI screening follows ACOG guidelines(PB 168, 140, MHP962). See individual assays for performing site location. Clinical Information: RTN SCREEN [facility] LMP: NONE GIVEN [facility] Prev. PAP: NONE GIVEN [facility] Prev. BX: NONE GIVEN [facility] SOURCE: None given [facility] [employer] Statement Of Adequacy: [facility] Comment: Satisfactory for evaluation. Endocervical/transformation zone component absent. Interpretation/Re sult: Negative for intraepithelial lesion or malignancy. [employer] [employer] Infection Shift in vaginal hui suggestive of bacterial vaginosis. [facility] COMMENT: This Pap test has been evaluated with computer assisted technology. [facility] Wagon Driller: [employer] [facility] Comment: DCR, CT(ASCP) CT screening location: [place] [address] Review Wagon Driller: [facility] Comment: WAC, CT(ASCP) CT screening location: [place] [address] (Always Message) Que [facility] Comment: EXPLANATORY NOTE: The Pap is a [...] HPV nRNA E6/E7 Not Detected Not Detected [facility] Comment: Methodology: High [employer] Math Tutor-Mediated Amplification This assay detects E6/E7 viral messenger RNA (mRNA) from 14 high-risk HPV types (16,18,31,33,35,39,45,51,52,56,58,59,66,68). Cervical sources are required for HPV testing. If a vaginal source from a patient who has had a total hysterectomy with removal of cervix was submitted, please contact the testing laboratory for alternative testing options. For additional information, please refer to http://[employer].DxUpClose/faq/YWF197b2 (This link if provided for information/ educational purposes only.) Chlamydia trachomatis RNA, TMA, Urogenital NOT DETECTED NOT DETECTED [employer] Neisseria gonorrhoeae RNA, TMA, Urogenital NOT DETECTED NOT DETECTED [employer] Comment [employer] [employer] Comment: The analytical performance characteristics of this assay, when used to test SurePath(TM) specimens have been determined by [facility]. The modifications have not been cleared or approved by the FDA. This assay has been validated pursuant to the CLIA regulations and is used for clinical purposes. For additional information, please refer to https://[employer].DxUpClose/faq/LPG398 (This link is being provided for information/ educational purposes only.) Trichomonas vaginalis, QL, TMA, PAP Vial NOT DETECTED NOT DETECTED [employer] Comment: The analytical performance characteristics of this assay have been determined by [facility]. The modifications have not been cleared or approved by the FDA. This assay has been validated pursuant to the CLIA regulations and is used for clinical purposes. For additional information, please refer to [email or web address] (This link is being provided for information/ educational purposes only.) Pap Vial 02/10/2023 11:2 7 AM EDT 02/11/2023 7:10 AM EDT [facility] ORDERABLES F inal Result [facility] [address], [place] [address] [facility] [place] [facility] [address] [place] [address] from Last 3 Months or Most Recently Relevant to Health Maintenance Insurance C3 Care Teams Agricultural Chemist Relationship Specialty Start Date End Date Samreen Pacheco NP [address] [place] [address] PCP - General Family Medicine 07/06/23
--- OUTSIDE RECORDS SUMMARY | 2025-07-20 08:05 | XMS_ITS | Encounter Summary ---
Author Organization [employer] Address 75 [facility] 7 [place] [address] Care Team Providers Care Trauma Counsellor Name Role Phone Samreen Pacheco NP Primary Care Provider [phone] Reason for Visit * Reason Comments Med Change Request Encounter Details Date Type Department Care Team ([facility] st Contact Info) Description 12/10/2023 Refill [facility] MEDICINE [address] [place] [address] Samreen Pacheco NP [address] [place] [address] Uncontrolled hypertension Social History Tobacco Use Types [...] Description 08/06/2025 3:15 PM EST Office Visit [facility]INE [address] [place] [address] Samreen Pacheco NP [address] [place] [address] documented as of this encounter Visit Diagnoses Diagnosis Uncontrolled hypertension documented in this encounter Additional Health Concerns Assessment Noted Time PHQ-9 Depression Total Score: 24 024 2:45 PM EST documented as of this encounter Care Teams Trauma Counsellor Relationship Specialty Start Date End Date Samreen Pacheco NP [address] [place] [address] PCP - General Family Medicine 07/06/23 documented as of this encounter
--- OUTSIDE RECORDS SUMMARY | 2025-07-20 08:05 | XMS_ITS | Encounter Summary ---
Author Organization [employer] Address 75 [facility] 7t [place] [address] Care Team Providers Care Corporate Health Consultant Name Role Phone Junior Samreen CHARLES Primary Care Provider [phone] Reason for Visit * Reason Comments Med Refill Encounter Details Date Type Department Care Team ([facility] st Contact Info) Description 03/18/2024 Refill [facility] MEDICINE [address] [place] [address] Channing Menchaca AGNP Uncontrolled hypertension; Edema of [...] Description 08/06/2025 3:15 PM EST Office Visit [facility] MED[facility] [address] [place] [address] Samreen Pacheco NP [address] [place] [address] documented as of this encounter Visit Diagnoses Diagnosis Uncontrolled hypertension Edema of both lower legs documented in this encounter Additional Health Concerns Assessment Noted Time PHQ-9 Depression Total Score: 8 01/12/20 24 2:34 PM EDT documented as of this encounter Care Teams Corporate Health Consultant Relationship Specialty Start Date End Date Samreen Pacheco NP [address] [place] [address] PCP - General Family Medicine 07/06/23 documented as of this encounter
--- OUTSIDE RECORDS SUMMARY | 2025-07-20 08:05 | XMS_ITS | Encounter Summary ---
Author Organization [facility] Address [address] [place] [address] [place] [address] Care Team Providers Care Script Editor Name Role Phone Michael Campbell MD Primary Care Provider Giselle Bermudez Primary Care Provider Samreen Gilmore NP Primary Care Provider [phone] Encounter Details Date Type Department Care Team (Latest Contact Info) Description 02/16/2019 Abstract [facility] CONVERSIONS Dental, Provider, DDS Social History Tobacco [...] Description 08/06/2025 3:15 PM EST Office Visit [facility] MEDICINE [address] [place] [address] Samreen Pacheco NP 230 [place] [address] documented as of this encounter Visit Diagnoses Not on filedocumented in this encounter Care Teams Script Editor Relationship Specialty Start Date End Date Michael Campbell MD PCP - General Family Medicine 07/05/19 08/23/22 Giselle Hamlin FNP PCP - General Family Medicine 08/24/22 07/05/23 Samreen Pacheco NP [address] [place] [address] PCP - General Family Medicine 07/06/23 documented as of this encounter
== END 2025-07-20 08:00 | disposition home or self-care (01) ==
LOC: HO.US 07:59
PROVIDERS: PCP Nurse Practitioner; Visit Provider Internal Medicine Nephrology
DX: I12.9 Hypertensive chronic kidney disease with stage 1 through stage 4 chronic kidney disease, or unspecified chronic kidney disease (principal); N18.4 Chronic kidney disease, stage 4 (severe); N25.81 Secondary hyperparathyroidism of renal origin
CPT/HCPCS: 76775

== ENCOUNTER → 2025-07-20 08:01 | Outpatient (BNV) | payer MEDICAID, SELFPAY | PROVIDERS: PCP Nurse Practitioner; Visit Provider Radiology Diagnostic Radiology | DX: N20.0 Calculus of kidney (principal) | CPT/HCPCS: 76775 ==

== ENCOUNTER 2025-07-23 09:12 | Day surgery (SDC) | payer MEDICAID, SELFPAY ==
--- OUTSIDE RECORDS SUMMARY | 2025-07-19 06:55 | XMS_ITS | Encounter Summary ---
Author Organization [employer] [facility] Address [address] [place] [address] [place] [address] Care Team Providers Care Rn Icu Name Role Phone Michael Campbell MD Primary Care Provider Giselle Bermudez Primary Care Provider Samreen Gilmore NP Primary Care Provider [phone] Encounter Details Date Type Department Care Team (Latest Contact Info) Description 08/21/2019 Abstract [facility] CONVERSIONS Dental, Provider, DDS Social History [...] Description 08/06/2025 3:15 PM EST Office Visit [facility] MEDICINE [address] [place] [address] Samreen Pacheco NP [address] [place] [address] documented as of this encounter Visit Diagnoses Not on filedocumented in this encounter Care Teams Rn Icu Relationship Specialty Start Date End Date Michael Campbell MD PCP - General Family Medicine 07/05/19 08/23/22 Giselle [place] FNP PCP - General Family Medicine 08/24/22 07/05/23 Samreen Pacheco NP [address] [place] [address] PCP - General Family Medicine 07/06/23 documented as of this encounter
--- OUTSIDE RECORDS SUMMARY | 2025-07-19 06:55 | XMS_ITS | Encounter Summary ---
Author Organization [facility] Address [address] [place] [address] [place] [address] Care Team Providers Care Nursing Techn Name Role Phone Michael Campbell MD Primary Care Provider Giselle Bermudez Primary Care Provider Samreen Gilmore NP Primary Care Provider [phone] Encounter Details Date Type Department Care Team (Latest Contact Info) Description 02/16/2019 Abstract [facility] CONVERSIONS Dental, Provider, DDS Social History [...] Description 08/06/2025 3:15 PM EST Office Visit [facility] MEDICINE [address] [place] [address] Samreen Pacheco NP [address] [place] [address] documented as of this encounter Visit Diagnoses Not on filedocumented in this encounter Care Teams Nursing Techn Relationship Specialty Start Date End Date Michael Campbell MD PCP - General Family Medicine 07/05/19 08/23/22 Giselle [place] FNP PCP - General Family Medicine 08/24/22 07/05/23 Samreen Pacheco NP [address] [place] [address] PCP - General Family Medicine 07/06/23 documented as of this encounter
--- OUTSIDE RECORDS SUMMARY | 2025-07-19 06:55 | XMS_ITS | Encounter Summary ---
Author Organization [employer] Address [address] [facility] 7t [place] [address] Care Team Providers Care Vegetable Vendor Name Role Phone Samreen Pacheco NP Primary Care Provider [phone] Encounter Details Date Type Department Care Team ([facility] st Contact Info) Description 11/22/[address] [facility] MEDICINE [address] [place], [place] [phone] Samreen Pacheco NP [address] [place] [address] Social History Tobacco Use Types Packs/Day Years [...] T/C to pt. For below message through Comr.se id - [id number] for below message and status check, pt. States she is doing O.K. pt. Does not has any new symptoms right now, advised to go to nearest ED in case of any new or worsening symptoms including CP, SOB or breathing problem.. [facility] hours are informed. Operative notes are scanned into pt.'s chart. * Telephone Encounter - Samreen Pacheco NP - 11/23/2023 9:33 AM EST Noted. Thank you * Telephone Encounter - La Rod RN - 11/22/2023 4:28 PM EST TC placed to patient via [employer] Worker regarding two recent messages below. Patient didn't answer. TC placed to patient without motor vehicle parts interpreter line. Patient states she had surgery to remove a kidney stone today at [facility] and is resting at home. Notes not [...] to look for [facility] notes as this telegraphic typewriter repairer does not have access. Tc from rochelle special services director with [facility] urology would like to inform PCP that provider Mary is recommending a [facility] cardiology referral for chest pain and and exertion and also is requesting a referral for nephrology, states pt creatinine levels are 2.5. If any questions or concerns please contact at [phone] [phone] ARACELI Velasco [facility] Team Nurses Caller: Unspecified (Today, 10:17 [...] EST Office Visit [facility] MEDICINE [address] [place] [address] Samreen Pacheco NP [address] [place] [address] documented as of this encounter Visit Diagnoses Not on filedocumented in this encounter Additional Health Concerns Assessment Noted Time PHQ-9 Depression Total Score: 16 023 3:41 PM EDT documented as of this encounter Care Teams Vegetable Vendor Relationship Specialty Start Date End Date Samreen Pacheco NP [address] [place] [address] PCP - General Family Medicine 07/06/23 documented as of this encounter
--- OUTSIDE RECORDS SUMMARY | 2025-07-19 06:55 | XMS_ITS | Encounter Summary ---
Author Organization [employer] Address [address] [facility] 7 [place] [address] Care Team Providers Care Crib Tender Name Role Phone Samreen Pacheco NP Primary Care Provider [phone] Reason for Visit * Reason Comments Med Change Request Encounter Details Date Type Department Care Team ([facility] st Contact Info) Description 12/10/2023 Refill [facility] MEDICINE [address] [place] [address] Samreen Pacheco NP [address] [place] [address] Uncontrolled hypertension Social History Tobacco Use Types [...] Description 08/06/2025 3:15 PM EST Office Visit [facility] MEDICINE [address] [place] [address] Samreen Pacheco NP [address] [place] [address] documented as of this encounter Visit Diagnoses Diagnosis Uncontrolled hypertension documented in this encounter Additional Health Concerns Assessment Noted Time PHQ-9 Depression Total Score: 24 024 2:45 PM EST documented as of this encounter Care Teams Crib Tender Relationship Specialty Start Date End Date Samreen Pacheco NP [address] [place] [address] PCP - General Family Medicine 07/06/23 documented as of this encounter
--- OUTSIDE RECORDS SUMMARY | 2025-07-19 06:55 | XMS_ITS | Clinical Summary ---
Author Organization [employer] Address [address] [place] [address] [address] [place] [address] Care Team Providers [place] Historian Name Role Phone Samreen Pacheco NP Primary Care Provider [phone] Allergies No known active allergies Medications * [...] me she has a follow with her Furnace Keeper soon. EKG : NSR, HR 76 bpm, [...] osteodystrophy 04/07/2022 Stage 3b chronic kidney disease ([facility]) 2020 Assessment & Plan (02/24/2023 11:19 AM [...] PLAN FOR MODERATE MAJOR DEPRESSION, SINGLE EPISODE ([facility]) WRITTEN ON 02/11/2023 4:08 PM BY LINDA LORD MD Pt has a history of depression, currently denies any SI. [id number] Will ask our [facility] clinician to contact her Assessment & Plan [...] a nd albumin creatinine ratio >300 mg/g ([facility]) 08/05/2012 Assessment & Plan (05/30/2025 1:15 PM [...] Data 06/27/2025 3:15 PM EDT Office Visit [facility] [address] [place] [phone] Samreen Pacheco NP Hypertensive urgency (Primary Dx); CKD stage G4/A3, GFR 15-29 and albumin creatinine ratio >300 mg/g ([facility]) ([facility]) 06/27/2025 Travel 05/30/2025 Results Follow-Up [address] [address] Samreen Pacheco NP Comprehensive Metabolic Panel, Albumin, Random Urine W/Creatinine, Vitamin D, 25-Hydroxy, Total, Immunoassay, Additional followed-up results: 2 05/08/[address] [address] Joe Bennett [place] June recall from Last [...] Description 08/06/2025 3:15 PM EST Office Visit [facility] [address] [place] [address] Samreen Pacheco NP [address] [place] [address] Health Maintenance Due Date Last Done Comments [...] (07/02/2025 1:40 PM EDT) Proteinase-3 Antibody 2.5(A) [facility] Comment:Value Interpretation ----- <1.0 No Antibody Detected > or = 1.0 Antibody DetectedAutoantibodies to proteinase-3 (OH-3) are accepted ascharacteristic for granulomatosis with polyangiitis(GPA, Bobbi's), and are detectable in 95% of thehistologically proven cases. The cytoplasmic IFApattern, (c-ANCA), is based largely on autoantibody toPR-3 which serves as the primary antigen.These autoantibodies are present in active disease.THIS TEST WAS PERFORMED AT:[email or web address] [place] [id number] KHAN MD 07/02/2025 1:40 PM EDT 07/02/2025 6:19 PM EDT us Generic External Data Provider LAB BLOOD ORDERAB LES Final Result [facility] [address] [place] [phone] * Myeloperoxidase Antibody (MPO) (07/02/2025 1:40 PM EDT) Myeloperoxidase Antibody <1.0 [facility] Comment:Value Interpretatio n ----- <1.0 No Antibody Detected > or = 1.0 Antibody DetectedAutoantibodies to myeloperoxidase (MPO) are commonlyassociated with the following small-vesselvasculitides: microscopic polyangiitis,polyarteritis nodosa, Churg-Doug syndrome,necrotizing and crescentic glomerulonephritis andoccasionally granulomatosis with polyangiitis(GPA, Bobbi's). The perinuclear IFA pattern,(p-ANCA) is based largely on autoantibody tomyeloperoxidase which serves as the primary antigen.These autoantibodies are present in active disease.THIS TEST WAS PERFORMED AT:[email or web address] [place] [phone] KHAN MD 07/02/2025 1:40 PM EDT 07/02/2025 6:19 PM EDT Generic External Data Provider LAB BLOOD ORDERAB LES Final Result Performing Organization Address [facility] Co de Phone Number [facility] [address] [place] [phone] * (ABNORMAL) Protein Creatinine Ratio, Urine (07/02/2025 1:40 PM EDT) Creatinine, Urine 76.90 mg/dL [facility] Protein, Total, Random Urine 180(H) <12 mg/dL [facility] Protein/Creati nine Ratio, Ur 2.34(H) <0.2 [facility] Comment:The spot urine prote in:creatinine ratio may increase to 0.3during normal . 07/02/2025 1:40 PM EDT 07/02/2025 6:00 PM EDT us Generic External Data Provider LAB URINE ORDERAB LES Final Result Performing Organization Address [facility] Co de Phone Number [facility] [address] [place] [phone] * Phospholipase A2 Receptor (PLA2R) Antibody Panel (07/02/2025 1:40 PM EDT) Phospholipase A2 Receptor (PLA2R) Ab, NAYE <4 RU/mL [facility] Comment:Reference Range: <14 : NEGATIVE 14-19: BORDERLINE >19: POSITIVE Phospholipase A2 Receptor (PLA2R) Ab, IFA NEGATIVE NEGATIVE [facility] Comment:THIS TEST WAS PERFOR MED AT:[employer] [id number] [place] [address]HIUIDMICK HARRINGTON MD,PHD,RAINA 07/02/2025 1:40 PM EDT 07/02/2025 6:19 PM EDT Generic External Data Provider LAB BLOOD ORDERAB LES Final Result Performing Organization Address City/[facility]/ZIP Co de Phone Number [facility] [address] [place] [address] [phone] * Immunofixation (TERESA), Urine (07/02/2025 1:40 PM EDT) TERESA Interpretation [facility] Comment:No monoclonal protei ns detectedTHIS TEST WAS PERFORMED AT:[employer] [address] [phone] KHAN MD 07/02/2025 1:40 PM EDT 07/02/2025 6:00 PM EDT Generic External Data Provider LAB URINE ORDERAB LES Final Result Performing Organization Address City/[facility]/ZIP Co de Phone Number [facility] [address] [place] [address] [phone] * (ABNORMAL) Creatinine, Serum (07/02/2025 1:40 PM EDT) Creatinine, Serum 2.63(H) 0.5 - 1.4 mg/dL [facility] Estimated Glomerular Filt Rate 20 [facility] Comment:Chronic Kidney Disea se: Estimated GFR < 60 mL/min/1.84k4Zrvsdv Kidney Disease: Estimated GFR < 15 mL/min/1.73m2 07/02/2025 1:40 PM EDT 07/02/2025 6:19 PM EDT us Generic External Data Provider LAB BLOOD ORDERAB LES Final Result [facility] [address] [place] [address] [phone] * CBC auto differential (07/02/2025 1:40 PM EDT) White Blood Count 7.3 4.8 - 10.8 X10*3/uL [facility] Red Blood Count 4.41 4.20 - 5.50 X10*6/uL [facility] Hemoglobin 12.9 12.0 - 16.0 g/dl [facility] Hematocrit 38.2 37.0 - 47.0 % [facility] Mean Corpuscular Volume 86.6 80.0 - 98.0 fL [facility] Mean Corpuscular Hemoglobin 29.3 27.0 - 33.0 pg [facility] Mean Corpuscular HGB Conc 33.8 31.0 - 35.0 g/dl [facility] Red Cell Distribution Width 13.3 11.0 - 16.0 % [facility] Platelet Count 193 160 - 400 X10*3/uL [facility] Mean Platelet Volume 11.0 9.4 - 12.3 fL [facility] Neutrophils Percent Auto 50.9 45 - 73 % [facility] Imm Gran Pct Auto 0.3 0.0 - 0.4 % [facility] Lymphocytes Percent Auto 38.0 20 - 40 % [facility] Monocytes Percent Auto 7.4 2 - 11 % [facility] Eosinophils Percent Auto 2.6 0 - 4 % [facility] Basophils Percent Auto 0.8 0 - 2 % [facility] NRBC Pct Auto 0.0 0.0 - 0.2 /100WBC [facility] Neutrophils Absolute Auto 3.7 2.0 - 8.3 x10*3/uL [facility] Imm Gran Abs Auto 0.02 0.00 - 0.03 X10*3/uL [facility] Lymphocytes Absolute Auto 2.8 1.2 - 4.9 X10*3/uL [facility] Monocytes Absolute Auto 0.5 0.1 - 1.2 X10*3/uL [facility] Eosinophils Absolute Auto 0.2 0.0 - 0.4 X10*3/uL [facility] Basophils Absolute Auto 0.1 0.0 - 0.2 X10*3/uL [facility] NRBC Abs Auto 0.000 0.0 - 0.012 X10*3/uL [facility] 07/02/2025 1:40 PM EDT 07/02/2025 6:19 PM EDT Generic External Data Provider LAB BLOOD ORDERAB LES Final Result Performing Organization Address [facility] Co de Phone Number [facility] [address] [place] [phone] * Glomerular Basement Membrane Antibody (IgG) (07/02/2025 1:40 PM EDT) Glomerular Basement Memebrane Antibody (IgG) <1.0 AI [facility] Comment:Value Interpretation ----- <1.0 No Antibody Detected > or = 1.0 Antibody DetectedTHIS TEST WAS PERFORMED AT:[email or web address] [place] [phone] KHAN MD 07/02/2025 1:40 PM EDT 07/02/2025 6:19 PM EDT us Generic External Data Provider LAB BLOOD ORDERAB LES Final Result Performing Organization Address [facility] Co de Phone Number [facility] [address] [place] [phone] * DNA (ds) Antibody (07/02/2025 1:40 PM EDT) Anti DNA DS Antibody 1 IU/mL [facility] Comment:IU/mL Interpretation < or = 4 Negative 5-9 Indeterminate > or = 10 PositiveTHIS TEST WAS PERFORMED AT:[employer] [address] [phone] KHAN MD 07/02/2025 1:40 PM EDT 07/02/2025 6:19 PM EDT Generic External Data Provider LAB BLOOD ORDERAB LES Final Result Performing Organization Address [facility] Co de Phone Number [facility] [address] [place] [phone] * Hepatitis B surface antigen, EIA (07/02/2025 1:40 PM EDT) Hepatitis B Surface Ag Negative Negative [facility] 07/02/2025 1:40 PM EDT 07/02/2025 6:19 PM EDT Generic External Data Provider LAB BLOOD ORDERAB LES Final Result Performing Organization Address [facility] Co de Phone Number [facility] [address] [place] [phone] * Hepatitis B Core Antibody, Total (07/02/2025 1:40 PM EDT) Hepatitis B Core Antibody Nonreactive Nonreactive [facility] 07/02/2025 1:40 PM EDT 07/02/2025 6:19 PM EDT Generic External Data Provider LAB BLOOD ORDERAB LES Final Result Performing Organization Address [facility] de Phone Number [facility] [address] [place] [phone] * (ABNORMAL) Urinalysis Complete (07/02/2025 1:40 PM EDT) Color Urine Yellow [facility] Appearance Urine Hazy [facility] PH 6.0 5.0 - 9.0 [facility] Glucose Urine UA Negative Negative mg/dL [facility] Urine Blood Trace Negative [facility] Specific [place] - Urine 1.010 1.005 - 1.025 [facility] Urine Protein 100 (2+)(A) Neg-Trace mg/dL [facility] Urine Ketones Negative Negative mg/dL [facility] Nitrite Urine Positive(A) Negative [facility] Leukocyte Esterase Urine Moderate (2+)(A) Negative [facility] RBC Urine 0-2 0 - 2 /HPF [facility] Urine WBC 6-10 0 - 5 /HPF [facility] Urine Squamous Epithelial Cell 3-5 0 - 2 /HPF [facility] Urine Bacteria 2+ None Seen [facility] Hyaline Casts, Urine 0-2 0 - 2 /LPF [facility] 07/02/2025 1:40 PM EDT 07/02/2025 6:00 PM EDT us Generic External Data Provider LAB URINE ORDERAB LES Final Result [facility] [address] [place] [phone] * (ABNORMAL) Prothrombin Time-INR (07/02/2025 1:40 PM EDT) Prothrombin Time 10.4(L) 10.9 - 12.4 SEC [facility] INTERNATIONAL NORM RATIO 0.9 0.9 - 1.1 [facility] Comment:INTERNATIONAL NORMAL IZED RATIO (INR) REFERENCE [...] ORDERAB LES Final Result Performing Organization Address City/[facility]/ZIP Co de Phone Number [facility] [address] [place] [phone] * (ABNORMAL) Immunofixation, Serum (07/02/2025 1:40 PM EDT) IMMUNOGLOBULIN G 1586 600 - 1640 mg/dL [facility] IMMUNOGLOBULIN A 338(A) 47 - 310 mg/dL [facility] Immunoglobulin M 66 50 - 300 mg/dL [facility] Comment:THIS TEST WAS PERFOR MED AT:[email or web address] [place] [id number] KHAN MD Immunofixation Result [facility] Comment:No monoclonal protei ns detected 07/02/2025 1:40 PM EDT 07/02/2025 6:19 PM EDT Generic External Data Provider LAB BLOOD ORDERAB LES Final Result Performing Organization Address [facility] Co de Phone Number [facility] [address] [place] [phone] * Complement Component C3c (07/02/2025 1:40 PM EDT) Complement C3 157 83 - 193 mg/dL [facility] Comment:THIS TEST WAS PERFOR MED AT:[employer] [id number] [place] [id number] KHAN MD 07/02/2025 1:40 PM EDT 07/02/2025 6:16 PM EDT us Generic External Data Provider LAB BLOOD ORDERAB LES Final Result Performing Organization Address City/[facility]/ZIP Co de Phone Number [facility] [address] [place] [phone] [phone] * Complement Component C4c (07/02/2025 1:40 PM EDT) Complement C4 22 15 - 57 mg/dL [facility] Comment:THIS TEST WAS PERFOR MED AT:[email or web address] [place] [id number] KHAN MD 07/02/2025 1:40 PM EDT 07/02/2025 6:16 PM EDT us Generic External Data Provider LAB BLOOD ORDERAB LES Final Result Performing Organization Address [facility] Co de Phone Number [facility] [address] [place] [phone] * (ABNORMAL) BUN (Blood Urea Nitrogen) (07/02/2025 1:40 PM EDT) Urea Nitrogen (BUN) 36(H) 9 - 16 mg/dL [facility] 07/02/2025 1:40 PM EDT 07/02/2025 6:19 PM EDT Generic External Data Provider LAB BLOOD ORDERAB LES Final Result Performing Organization Address [facility] de Phone Number [facility] [address] [place] [phone] * ALT (07/02/2025 1:40 PM EDT) Alanine Aminotransferase 24 0 - 31 U/L [facility] 07/02/2025 1:40 PM EDT 07/02/2025 6:19 PM EDT Generic External Data Provider LAB BLOOD ORDERAB LES Final Result Performing Organization Address [facility] de Phone Number [facility] [address] [place] [phone] * AST (07/02/2025 1:40 PM EDT) Aspartate Amino Transferase 30 5 - 31 U/L [facility] 07/02/2025 1:40 PM EDT 07/02/2025 6:19 PM EDT us Generic External Data Provider LAB BLOOD ORDERAB LES Final Result Performing Organization Address [facility] Co de Phone Number [facility] [address] [place] [phone] * Hemoglobin A1c (07/02/2025 1:40 PM EDT) Hemoglobin A1c 5.6 <6.0 % [facility] Comment:Hemoglobin A1C Refer ence Range Adults: 4.8 - 6.0 % Non diabetic: < 6.0 % Goal: < 7.0 %Additional Action Suggested: > 8.0 %Note: Hemoglobin A1c results are invalid for patients with abnormal amounts of HbF. Blood transfusions may impact the HbA1c concentration in the patient sample. Estimated Average Glucose 114 mg/dL [facility] Comment:eAG = Estimated ave rage glucose which is %A1C expressed asaverage glucose, using the formula of the K1F-TitnnqpKqvlvxs Glucose study (ADAG), Diabetes Care, Vol.31,#8,Apr. 2007 07/02/2025 1:40 PM EDT 07/02/2025 6:18 PM EDT us Generic External Data Provider LAB BLOOD ORDERAB LES Final Result Performing Organization Address [facility] Co de Phone Number [facility] [address] [place] [phone] * Calcium (07/02/2025 1:40 PM EDT) Calcium 9.3 8.4 - 10.2 mg/dL [facility] 07/02/2025 1:40 PM EDT 07/02/2025 6:19 PM EDT Generic External Data Provider LAB BLOOD ORDERAB LES Final Result Performing Organization Address [facility] Co de Phone Number [facility] [address] [place] [phone] * Albumin (07/02/2025 1:40 PM EDT) Pathologist [facility] Albumin Level 4.1 3.5 - 5.0 g/dL [facility] 07/02/2025 1:40 PM EDT 07/02/2025 6:19 PM EDT Generic External Data Provider LAB BLOOD ORDERAB LES Final Result Performing Organization Address [facility] Co de Phone Number [facility] [address] [place] [phone] * (ABNORMAL) Electrolyte Panel (07/02/2025 1:40 PM EDT) [facility] Sodium 135 135 - 145 mmol/L [facility] Potassium 4.8 3.3 - 5.1 mmol/L [facility] Chloride 106 96 - 108 mmol/L [facility] Carbon Dioxide 23 22 - 29 mmol/L [facility] Anion Gap 11(L) 12 - 20 [facility] 07/02/2025 1:40 PM EDT 07/02/2025 6:19 PM EDT us Generic External Data Provider LAB BLOOD ORDERAB LES Final Result Performing Organization Address [facility] Co de Phone Number [facility] [address] [place] [phone] * (ABNORMAL) Creatinine Clearance (07/02/2025 4:00 AM EDT) Pathologist [facility] Creatinine, Serum 2.63(H) 0.5 - 1.4 mg/dL [facility] Creatinine Clearance 24.3(L) 85 - 125 mL/min [facility] Creatinine, 24 Hour Urine 0.9(L) 1.0 - 2.0 G/Day [facility] Creatinine, Urine 40.95 [facility] Urine Total Volume 24 Hour 2,250 mL [facility] 07/02/2025 4:00 AM EDT 07/02/2025 6:26 PM EDT Serge [facility] - 07/02/2025 7:21 PM EDT [id number] us Generic External Data Provider LAB BLOOD ORDERAB LES Final Result [facility] [address] [place] [phone] * ECG 12 lead (06/27/2025 6:06 PM EDT) Samreen Saavedra NP - 06/27/2025 6:06 PM EDT HR 65 bpm, no ST changes; sinus arrhythmia EKG us Samreen Pacheco NP ECG ORDERABLES Final Result * (ABNORMAL) Lipid Panel, Standard (04/02/2025 8:44 AM EDT) Triglycerides 183(H) <150 mg/dL [facility] Comment:Desirable Triglyceri de: less than 150 mg/dLBorderline High Triglyceride 150-199 mg/dLHigh Triglyceride: 200-499 mg/dLVery High Triglyceride: greater than or equal to 5OO mg/dL Cholesterol 224(H) <200 mg/dL [facility] Comment:Desirable Cholestero l: less than 200 mg/dLBorderline High Cholesterol: 200-239 mg/dLHigh Cholesterol: greater than 239 mg/dL LDL Cholesterol Calculated 140(H) <100 mg/dL [facility] Comment:Desirable LDL: less than 100 mg/dLNear Optimal/Above Optimal LDL: 110- 129 mg/dLBorderline High LDL: 130-159 mg/dLHigh LDL: 160-189 mg/dLVery High LDL: greater than or equal to 190 mg/dL HDL Cholesterol 48 >40 mg/dL [facility] Comment:Desirable HDL: great er than 40 mg/dL Note: This HDL assay may give artificially low results in patients with liver disease. Blood Venous blood specimen / Unknown 04/02/2025 8:44 AM EDT 04/02/2025 11:17 AM EDT Samreen Pacheco DANCING TEACHER LAB BLOOD ORDERABLES Final Resu lt Performing Organization Address City/[facility]/ZIP Co de Phone Number [facility] [address] [place] [phone] * Hepatitis C Antibody with Reflex to HCV, RNA, Quantitative, Real-Time PCR (02/10/2023 11:42 AM EDT) Hepatitis C Antibody NON-REACT HARSHAD NON-REACT HARSHAD [facility] [place] [employer] Index 0.03 <1.00 [facility] [place] [facility] Comment: HCV antibody was non-reactive. There is no laboratory evidence of HCV infection. In most cases, no further action is required. However, if recent HCV exposure is suspected, a test for HCV RNA (test code 64756) is suggested. For additional information please refer to http://education.[employer]/faq/GOB94k6 (This link is being provided for informational/ educational purposes only.) Blood Venous blood specimen / Unknown 02/10/2023 11:42 AM EDT 02/10/2023 11:43 AM EDT Narrative [facility] - 02/12/2023 4:32 PM EDT FASTING:NO FASTING: NO Result [facility] Fatou Colby [facility] LAB BLOOD ORDERABLES Benita l Result [facility] [address], [place] [address] [facility] [place] [employer] [address] [place] [phone] * HIV-1/2 Antigen and Antibodies, Fourth Generation, with Reflexes (02/10/2023 11:42 AM EDT) HIV Antigen/Antibody, 4th Generation NON-REAC TIVE NON-REAC TIVE [facility] Comment: HIV-1 antigen and HIV-1/HIV-2 antibodies were [...] purpose. For additional information please refer to http://education.[employer]/faq/OEK154 (This link is being provided for informational/ educational purposes only.) The performance of this assay has not been clinically validated in patients less than 2 years old. Blood Venous blood specimen / Unknown 02/10/2023 11:42 AM EDT 02/10/2023 11:43 AM EDT Narrative [facility] - 02/12/2023 4:32 PM EDT FASTING:NO FASTING: NO Fatou Colby [facility] LAB BLOOD ORDERABLES Benita l Result [facility] [address], [place] [address] [facility] [address] [place] [address] * Image-Guided Pap with Age-Based Screening??with CT/NG,??Trichomonas (02/10/2023 11:27 AM EDT) Comment [facility] Comment: This order for age-based cervical cancer and STI screening follows ACOG guidelines(PB 168, 140, BYE788). See individual assays for performing site location. Clinical Information: RTN SCREEN [facility] LMP: NONE GIVEN [facility] Prev. PAP: NONE GIVEN [facility] Prev. BX: NONE GIVEN [facility] [employer] SOURCE: None given [facility] [employer] Statement Of Adequacy: [facility] Comment: Satisfactory for evaluation. Endocervical/transformation zone component absent. Interpretation/Re sult: Negative for intraepithelial lesion or malignancy. [facility] Infection Shift in vaginal hui suggestive of bacterial vaginosis. [facility] [place] [email or web address] COMMENT: This Pap test has been evaluated with computer assisted technology. [facility] [place] [email or web address] Cotton Bag Clipper: [employer] [employer] [place] [email or web address] Comment: DCR, CT(ASCP) CT screening location: [place] [address] Review Cotton Bag Clipper: [facility] [place] [employer] Comment: WAC, CT(ASCP) CT screening location: [place] [address] (Always Message) [facility] Comment: EXPLANATORY NOTE: The Pap is a [...] HPV nRNA E6/E7 Not Detected Not Detected [facility] Comment: Methodology: Public Health Director-Mediated Amplification This assay detects E6/E7 viral messenger RNA (mRNA) from 14 high-risk HPV types (16,18,31,33,35,39,45,51,52,56,58,59,66,68). Cervical sources are required for HPV testing. If a vaginal source from a patient who has had a total hysterectomy with removal of cervix was submitted, please contact the testing laboratory for alternative testing options. For additional information, please refer to http://[employer]/faq/VEU102i7 (This link if provided for information/ educational purposes only.) Chlamydia trachomatis RNA, TMA, Urogenital NOT DETECTED NOT DETECTED [facility] Neisseria gonorrhoeae RNA, TMA, Urogenital NOT DETECTED NOT DETECTED [facility] Comment [facility] Comment: The analytical performance characteristics of this assay, when used to test SurePath(TM) specimens have been determined by [employer]. The modifications have not been cleared or approved by the FDA. This assay has been validated pursuant to the CLIA regulations and is used for clinical purposes. For additional information, please refer to https://[employer]/faq/FWL040 (This link is being provided for information/ educational purposes only.) Trichomonas vaginalis, QL, TMA, PAP Vial NOT DETECTED NOT DETECTED [employer] Comment: The analytical performance characteristics of this assay have been determined by [employer]. The modifications have not been cleared or approved by the FDA. This assay has been validated pursuant to the CLIA regulations and is used for clinical purposes. For additional information, please refer to http://[employer]/ faq/Trichomonastma (This link is being provided for information/ educational purposes only.) Pap Vial 02/10/2023 11:2 7 AM EDT 02/11/2023 7:10 AM EDT [facility] ORDERABLES F inal Result [facility] [address], [place] [address] [facility] [place] [employer] [address] [place] [address] from Last 3 Months or Most Recently Relevant to Health Maintenance Insurance C3 Care Teams County Historian Relationship Specialty Start Date End Date Samreen Pacheco NP [address] [place] [id number] PCP - General Family Medicine 07/06/23
--- OUTSIDE RECORDS SUMMARY | 2025-07-19 06:55 | XMS_ITS | Encounter Summary ---
Author Organization [employer] Address [address] [facility] [address] [place] [address] Care Team Providers Care Vacation Planner Name Role Phone Junior Samreen CHARLES Primary Care Provider [phone] Reason for Visit * Reason Comments Med Refill Encounter Details Date Type Department Care Team ([facility] st Contact Info) Description 03/18/2024 Refill [facility] MEDICINE [address] [place] [address] Channing Menchaca AGNP Uncontrolled hypertension; Edema of [...] Description 08/06/2025 3:15 PM EST Office Visit [facility] MEDICINE [address] [place] [phone] Samreen Pacheco NP [address] [place] [address] documented as of this encounter Visit Diagnoses Diagnosis Uncontrolled hypertension Edema of both lower legs documented in this encounter Additional Health Concerns Assessment Noted Time PHQ-9 Depression Total Score: 8 01/12/20 24 2:34 PM EDT documented as of this encounter Care Teams Vacation Planner Relationship Specialty Start Date End Date Samreen Pacheco NP [address] [place] [id number] PCP - General Family Medicine 07/06/23 documented as of this encounter
[2025-07-23] VITALS (15 sets, daily range): BP systolic 106–173; BP diastolic 40–97; PULSE 50–94; RESP 13–20; TEMP 36.2–36.9; O2SAT 95–100; BMI 30.2
--- NOTE | ~2025-07-23 | CT_ITS ---
PROCEDURE: CT GUIDED BIOPSY, KIDNEY CLINICAL INFORMATION: Chronic kidney disease. COMPARISON: Ultrasound kidney 07/20/2025 TECHNIQUE: Following explaining CT fluoroscopy guided kidney biopsy procedure, benefits and risk, a written consent was obtained. Patient was placed prone on CT fluoroscopy table and preliminary CT imaging was obtained through the posterior abdomen with attention the kidneys. An optimal axial slice was selected and markers placed and repeat imaging obtained. An optimal marker was selected and marked on the skin overlying the left posterior abdomen. The marked site was cleaned and draped in usual sterile manner. 1% lidocaine was injected puncture site. Through a small skin incision an 18-gauge guide needle was advanced from the the skin into the lower pole cortex left kidney. Coaxially a second needle was advanced and a 3 pass left kidney core biopsy was performed. Gelfoam was injected through the guide needle into the left renal cortex to achieve hemostasis. Repeat CT imaging was obtained. Following removal of the guide needle complete skin hemostasis was obtained. Sterile dressing applied post procedure. Patient tolerated procedure extremely well. Repeat postprocedure CT was performed. Conscious sedation was utilized during exam and patient monitored by IR nurse and physician. This CT examination was performed using dose optimization techniques as appropriate, variously including the following: *Automated exposure control *Adjustment of mA and/or kV according to patient size (this includes techniques or standardized protocols for targeted exams where dose is matched to indication/reason for exam; i.e. extremities or head) *Use of iterative reconstruction technique FINDINGS: On preliminary CT imaging there are small radiopaque bilateral renal calculi. The largest calculi nonobstructive lower pole right kidney measures 7.5 mm. Bilateral extrarenal kidney pelvises are noted. A simple 3 cm upper pole left renal cyst is noted Successful CT fluoroscopy guided left renal lower pole cortex core biopsy was performed. Repeat CT imaging post procedure revealed no hematoma. CT/CT biopsy renal LT IMPRESSION: Successful CT fluoroscopy guided left renal lower pole cortex core biopsy performed. Incidental finding of bilateral nephrolithiasis with extrarenal kidney pelvis. No caliectasis seen. Moderate-sized left renal cyst is noted. DLP: 290 mGy/cm. Sedation time: 18 minutes Electronically signed by: Abdulkadir Solomon MD 07/25/2025 11:20 AM EDT
[2025-07-23 09:32] LABS: UPreg QC Valid YES
[2025-07-23 09:57] LABS: MANUAL DIFF FLAG NO
[2025-07-23 09:59] LABS: Hematocrit 34.3 % (37.0-47.0); Hemoglobin 11.4 g/dl (12.0-16.0); Imm Gran Abs Auto 0.01 X10*3/uL (0.00-0.03); Imm Gran Pct Auto 0.2 % (0.0-0.4); Lymphocytes Absolute Auto 2.4 X10*3/uL (1.2-4.9); Mean Corpuscular HGB Conc 33.2 g/dl (31.0-35.0); Mean Corpuscular Hemoglobin 28.7 pg (27.0-33.0); Mean Corpuscular Volume 86.4 fL (80.0-98.0); NRBC Abs Auto 0.000 X10*3/uL (0.0-0.012); NRBC Pct Auto 0.0 /100WBC (0.0-0.2); Platelet Count 177 X10*3/uL (160-400); Red Blood Count 3.97 X10*6/uL (4.20-5.50); White Blood Count 5.9 X10*3/uL (4.8-10.8)
[2025-07-23 10:07] LABS: INTERNATIONAL NORM RATIO 0.9 (0.9-1.1); Prothrombin Time 10.8 SEC (10.9-12.4)
[2025-07-23 10:10] LABS: Partial Thromboplastin Time 28.2 SEC (26.7-34.1)
[2025-07-23] MEDS: oxyCODONE HCl Immed Release 5 MG TABLET PO (11:45)
== END 2025-07-23 13:23 | disposition home or self-care (01) ==
PROVIDERS: Radiology Diagnostic Radiology; PCP Nurse Practitioner; Visit Provider Internal Medicine Nephrology
DX: I12.9 Hypertensive chronic kidney disease with stage 1 through stage 4 chronic kidney disease, or unspecified chronic kidney disease (principal); N18.4 Chronic kidney disease, stage 4 (severe); R80.8 Other proteinuria; N13.30 Unspecified hydronephrosis; N25.81 Secondary hyperparathyroidism of renal origin; N13.9 Obstructive and reflux uropathy, unspecified; L02.214 Cutaneous abscess of groin; L02.91 Cutaneous abscess, unspecified; Z87.442 Personal history of urinary calculi; Z79.899 Other long term (current) drug therapy; F17.290 Nicotine dependence, other tobacco product, uncomplicated
CPT/HCPCS: 36415; 50200; 77012; 81025; 85025; 85610; 85730; 86850; 86870; 86900; 86901; 86902; 86905; 86920; 86922; 88300; 88305; 88313; 88346; 88348; 88350; 99152; J2003; J2250; J3010

== ENCOUNTER → 2025-07-23 10:23 | Outpatient (BNV) | payer MEDICAID, SELFPAY | PROVIDERS: PCP Nurse Practitioner; Visit Provider Radiology Diagnostic Radiology | DX: N20.0 Calculus of kidney (principal); N28.1 Cyst of kidney, acquired | CPT/HCPCS: 50200; 77012 ==

== ENCOUNTER 2025-09-13 15:43 | Outpatient (AMB) | payer MEDICAID, SELFPAY ==
--- NOTE | 2025-09-13 15:47 | HO.NEPHOV_ITS ---
Vital Signs 09/13/25 15:49 Height 5 ft 4 in Weight 174 lb BMI 29.9 BP 130/80 Blood Pressure Location Lt brachial Position Sitting Intake Visit Reasons: Dec f/u w/labs-Conf Natural Resources Professor Required: Yes Natural Resources Professor Language: Fringe Maker Services: Natural Resources Professor [place] Declined [place] [place] Professor [place] Accompanied by: Significant Other Allergies No Known Allergies Allergy (Verified 09/13/25 15:48) HPI Comments Details: I had the privilege of seeing Rosario in follow up for CKD. She has long standing hypertension and is on multiple anti hypertensive medications. She is not aware of nick vascular disease. She denies CAD, CHF, CVA, BRUCE , carotid stenosis, PAD, renal stones, new bone pain, proteinuria, retinopathy, sensori neural deafness, orthostatic symptoms. She denies drug use, H/O hepatitis, HIV, excess NSAID use. She has no H/O epistaxis, photosensitivity, mouth ulcers , hematuria or renal stones. She is not a diabetic. Her BP has not been well controlled lately on her current medication regimen. She is active and feels well. Her serum creatinine has been 2.6 PFSH Medical History Hydronephrosis Obstructive uropathy Chronic kidney disease Renal failure Skin abscess Groin abscess Abscess of groin, right Surgical History H/O section History of lithotripsy Family History Father Diabetes mellitus HTN (hypertension) Mother Diabetes mellitus HTN (hypertension) Social History Alcohol intake: never Patient Tobacco Use Status: Current everyday Tobacco user Tobacco use type: Smokeless Tobacco e-Cigarette/Vaping Use: Currently Using Review of Systems Const All systems reviewed & are unremarkable except as noted in HPI and below Physical Exam Vital Signs: Last Vital Signs BP 130/80 09/13/25 15:49 BMI result Body Mass Index 29.9 Const General: comfortable and no acute distress Orientation/consciousness: patient oriented x3 HEENT Head: Yes normocephalic Mouth: Normal oral and palatal mucosa present Eyes EOM: EOMs intact bilaterally Neck Neck: Yes supple Resp Auscultation: clear to auscultation bilaterally Cardio Jugular venous distension: no JVD Rate: regular rate GI Palpation (GI): Soft to palpation Auscultation: normal bowel sounds General: Yes no CVA tenderness Back/Spine/Pelvis Back: no CVA tenderness Skin General skin exam: no rashes or lesions noted Neuro General: patient oriented x3 and moves all extremities Extrem General: Yes no pedal edema Results Reviewed Nephrology Results: Hgb, (12.0-16.0) 11.4 g/dl L 07/23/25 WBC, (4.8-10.8) 5.9 X10*3/uL 07/23/25 Plt Count, (160-400) 177 X10*3/uL 07/23/25 Sodium, (135-145) 135 mmol/L 07/02/25 Potassium, (3.3-5.1) 4.8 mmol/L 07/02/25 Chloride, (96-108) 106 mmol/L 07/02/25 Carbon Dioxide, (22-29) 23 mmol/L 07/02/25 BUN, (9-16) 36 mg/dL H 07/02/25 Creatinine, (0.5-1.4) 2.63 mg/dL H 07/02/25 Calcium, (8.4-10.2) 9.3 mg/dL 07/02/25 Urine Protein, (Neg-Trace) 100 (2+) mg/dL H 07/02/25 Urine Creatinine 76.90 mg/dL 07/02/25 Protein/Creatinin Ratio, (<0.2) 2.34 H 07/02/25 Renal US 07/20/25 Assessment & Plan Assessment & Plan (1) CKD (chronic kidney disease) stage 4, GFR 15-29 ml/min: Code(s): N18.4 - Chronic kidney disease, stage 4 (severe) Category: Medical (2) Secondary hyperparathyroidism of renal origin: Code(s): N25.81 - Secondary hyperparathyroidism of renal origin Category: Medical (3) Hypertension: Code(s): I10 - Essential (primary) hypertension Category: Medical Qualifiers: Hypertension type: primary hypertension Qualified Code(s): I10 - Essential (primary) hypertension Plan Rosario has renal dysfunction for a long time. She has not a diabetic. She has longstanding hypertension which had been under poor control. She is not known to have any cardiomyopathy but has history of nephrolithiasis needing interventions and stent placement. She is currently on amlodipine and carvedilol to keep her blood pressure at goal. She avoids nonsteroidal anti-inflammatories. She maintains good hydration. She has no clinical signs of heart failure or orthostatic symptoms. Her creatinine clearance is 24 mls/mt. Her renal biopsy was reviewed . I shall start her on SGLT2 i and low dose ACEI soon, if she tolerates it . She needs activated Vitamin D soon. I had the opportunity to answer all her questions. Follow-up appointment given. Orders: Orders Parathyroid Hormone Intact 3 Months I10 - Essential (primary) hypertension, N18.4 - Chronic kidney disease, stage 4 (severe), N25.81 - Secondary hyperparathyroidism of renal origin Vitamin D 25-OH Total 3 Months I10 - Essential (primary) hypertension, N18.4 - Chronic kidney disease, stage 4 (severe), N25.81 - Secondary hyperparathyroidism of renal origin Electrolytes 3 Months I10 - Essential (primary) hypertension, N18.4 - Chronic kidney disease, stage 4 (severe), N25.81 - Secondary hyperparathyroidism of renal origin Blood Urea Nitrogen 3 Months I10 - Essential (primary) hypertension, N18.4 - Chronic kidney disease, stage 4 (severe), N25.81 - Secondary hyperparathyroidism of renal origin Creatinine 3 Months I10 - Essential (primary) hypertension, N18.4 - Chronic kidney disease, stage 4 (severe), N25.81 - Secondary hyperparathyroidism of renal origin Coding Level of Care Code Est Pt Level 4 (09116) Diagnoses CKD (chronic kidney disease) stage 4, GFR 15-29 ml/min N18.4 Secondary hyperparathyroidism of renal origin N25.81 Primary hypertension I10 Hypertension type: primary hypertension
[2025-09-13 15:49] VITALS: BP 130/80; BMI 29.9
--- OUTSIDE RECORDS SUMMARY | 2025-09-13 19:28 | XMS_ITS | Encounter Summary ---
Author Organization [employer] Address 75 [facility] 7t [place] [address] Care Team Providers Care Director Sanitation Bureau Name Role Phone Samreen Pacheco NP Primary Care Provider [phone] Reason for Visit * Reason Comments Med Refill Encounter Details Date Type Department Care Team (Late st Contact Info) Description 03/18/2024 Refill [facility] MEDICINE [address] [place] [address] Channing Menchaca AGNP Uncontrolled hypertension; Edema of [...] Care Team (Late st Contact Info) Description 11/07/2025 2:30 PM EST Office Visit [facility] MEDICINE [address] [place] [address] Samreen Pacheco NP [address] [place] [address] documented as of this encounter Visit Diagnoses Diagnosis Uncontrolled hypertension Edema of both lower legs documented in this encounter Additional Health Concerns Assessment Noted Time PHQ-9 Depression Total Score: 8 01/12/20 24 2:34 PM EDT documented as of this encounter Care Teams Director Sanitation Bureau Relationship Specialty Start Date End Date Samreen Pacheco NP [address] [place] [address] PCP - General Family Medicine 07/06/23 documented as of this encounter
--- OUTSIDE RECORDS SUMMARY | 2025-09-13 19:29 | XMS_ITS | Encounter Summary ---
Author Organization [employer] Address 75 [facility] 7 [place] [address] Care Team Providers Care Bobbin Stripper Name Role Phone Samreen Pacheco NP Primary Care Provider [phone] Reason for Visit * Reason Comments Med Change Request Encounter Details Date Type Department Care Team ([facility] st Contact Info) Description 12/10/2023 Refill [facility] MEDICINE [address] [place] [address] Samreen Pacheco NP [address] [place] [address] Uncontrolled hypertension Social History Tobacco Use Types [...] enough money to get more: Never True 10/ Transportation Answer Date Recorded In the past [...] Description 11/07/2025 2:30 PM EST Office Visit [facility] MEDICINE [address] [place] [address] Samreen Pacheco NP [address] [place] [address] documented as of this encounter Visit Diagnoses Diagnosis Uncontrolled hypertension documented in this encounter Additional Health Concerns Assessment Noted Time PHQ-9 Depression Total Score: 24 024 2:45 PM EST documented as of this encounter Care Teams Bobbin Stripper Relationship Specialty Start Date End Date Samreen Pacheco NP [address] [place] [address] PCP - General Family Medicine 07/06/23 documented as of this encounter
--- OUTSIDE RECORDS SUMMARY | 2025-09-13 19:29 | XMS_ITS | Encounter Summary ---
Author Organization [employer] Address [address] [place] [address] 7 [place] [address] Care Team Providers Care Pre Sales Technical Consultant Name Role Phone Michael Campbell MD Primary Care Provider Giselle Bermudez Primary Care Provider Sully vailable Samreen Pacheco NP Primary Care Provider [phone] Encounter Details Date Type Department Care Team (Latest Contact Info) Description 02/16/[address] [facility] CONVERSIONS Dental, Provider, DDS Social History [...] Upcoming Encounters Date Type Department Care Team ( st Contact Info) Description 11/07/2025 2:30 PM EST Office Visit [facility] MEDICINE [address] [place] [address] Samreen Pacheco NP [address] [place] [address] documented as of this encounter Visit Diagnoses Not on filedocumented in this encounter Care Teams Pre Sales Technical Consultant Relationship Specialty Start Date End Date Michael Campbell MD PCP - General Family Medicine 07/05/19 08/23/22 Giselle Hamlin FNP PCP - General Family Medicine 08/24/22 07/05/23 Samreen Pacheco NP [address] [place] [address] PCP - General Family Medicine 07/06/23 documented as of this encounter
--- OUTSIDE RECORDS SUMMARY | 2025-09-13 19:29 | XMS_ITS | Encounter Summary ---
Author Organization [employer] Address 75 [facility] 7t [place] [address] Care Team Providers Care Oracle Specialist Name Role Phone Samreen Pacheco NP Primary Care Provider [phone] Encounter Details Date Type Department Care Team ([facility] st Contact Info) Description 11/22/2023 Telephone [facility] MEDICINE [address] [place], [place] [phone] Samreen Pacheco NP [address] [place] [address] Social History Tobacco Use Types Packs/Day Years [...] T/C to pt. For below message through [place] id - [id number] for below message and status check, pt. States she is doing O.K. pt. Does not has any new symptoms right now, advised to go to nearest ED in case of any new or worsening symptoms including CP, SOB or breathing problem.. [facility] hours are informed. Operative notes are scanned into pt.'s chart. * Telephone Encounter - Samreen Pacheco NP - 11/23/2023 9:33 AM EST Noted. Thank you * Telephone Encounter - La Rod RN - 11/22/2023 4:28 PM EST TC placed to patient via [employer] T[employer] Setter regarding two recent messages below. Patient didn't answer. TC placed to patient without interpreter translator line. Patient states she [place] [facility] resting at home. Notes not [...] to look for [facility] notes as this automobile and property underwriter does not have access. Tc from [employer] colorer with [facility] urology would like to inform PCP that provider Mary is recommending a [facility] cardiology referral for chest pain and and exertion and also is requesting a referral for nephrology, states pt creatinine levels are 2.5. If any questions or concerns please contact at [phone] [phone] Samreen Pacheco NP [facility] Nurses Caller: Unspecified (Today, 10:17 AM) Can [...] Description 11/07/2025 2:30 PM EST Office Visit [facility] MEDICINE [address] [place] [address] Samreen Pacheco NP [address] [place] [address] documented as of this encounter Visit Diagnoses Not on filedocumented in this encounter Additional Health Concerns Assessment Noted Time PHQ-9 Depression Total Score: 16 023 3:41 PM EDT documented as of this encounter Care Teams Oracle Specialist Relationship Specialty Start Date End Date Samreen Pacheco NP [address] [place] [address] PCP - General Family Medicine 07/06/23 documented as of this encounter
--- OUTSIDE RECORDS SUMMARY | 2025-09-13 19:29 | XMS_ITS | Encounter Summary ---
Author Organization [email or web address] Address [address] [place] [address] 7 [place] [address] Care Team Providers Care Machine Crater Name Role Phone Michael Campbell MD Primary Care Provider Giselle Bermudez Primary Care Provider Sully vailable Samreen Pacheco NP Primary Care Provider [phone] Encounter Details Date Type Department Care Team (Latest Contact Info) Description 08/21/2019 Abstract [facility] CONVERSIONS Dental, Provider, DDS Social History [...] Description 11/07/2025 2:30 PM EST Office Visit [facility] MEDICINE [address] [place] [address] Samreen Pacheco NP [address] [place] [address] documented as of this encounter Visit Diagnoses Not on filedocumented in this encounter Care Teams Machine Crater Relationship Specialty Start Date End Date Michael Campbell MD PCP - General Family Medicine 07/05/19 08/23/22 Giselle Hamlin FNP PCP - General Family Medicine 08/24/22 07/05/23 Samreen Pacheco NP [address] [place] [address] PCP - General Family Medicine 07/06/23 documented as of this encounter
--- OUTSIDE RECORDS SUMMARY | 2025-09-13 19:29 | XMS_ITS | Clinical Summary ---
Author Organization [facility] Address [facility] [address] Phone Care Team Providers Care Radio Station Operator Name Role Phone Yulisa Brewster DO Primary [...] any SI. [id number] 16 Will ask our [facility] clinician to contact her Immunizations Immunization Administration [...] of 3 - 19+ 3-dose series) 01/08/1999 08/06/2025, 03/19/2025, 02/24/2023 Pneumococcal Vaccine: Peds ( 0 to 5 Years) and At-Risk Patients (6 to 49 Years) (1 of 2 - PCV) 01/08/1999 Influenza Vaccine (#1) 2025 12/14/2018, 2011 Care Teams Radio Station Operator Relationship Specialty Start Date End Date Yulisa Brewster DO [address] [place] [address] PCP - General 10/07/20
--- OUTSIDE RECORDS SUMMARY | 2025-09-13 19:29 | XMS_ITS | Clinical Summary ---
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 amLODIPine (Norvasc) 10 MG tabletIndications :Uncontrolled hypertension Take 1 tablet by mouth qam 30 tablet 1 4 Active Jardiance 10 MGIndications:Sta ge 3 chronic kidney disease, unspecified whether stage 3a or 3b CKD (CMS/HCC) (HCC) TAKE 1 TABLET (10 MG) BY MOUTH IN THE MORNING FOR 30 DOSES. 90 tablet 4 Active D3-1000 25 MCG (1000 UT) capsuleIndication s:Hypovitaminosis D TAKE 1 CAPSULE (25 MCG) BY MOUTH ONCE PER DAY. 90 capsule 1 4 Active Multiple Vitamin (Daily-Cy Multivitamin) tabletIndications :Poor diet TAKE 1 TABLET BY MOUTH EVERY DAY IN THE MORNING 90 tablet 1 4 Active carvedilol (Coreg) 12.5 MG tablet Take 12.5 mg by mouth with breakfast and with evening meal. 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 EKG : NSR, HR 76 bpm, [...] osteodystrophy 04/07/2022 Stage 3b chronic kidney disease (CMS/HCC) 2020 Assessment & Plan (02/24/2023 11:19 AM [...] PLAN FOR MODERATE MAJOR DEPRESSION, SINGLE EPISODE ([facility]) WRITTEN ON 02/11/2023 4:08 PM BY LINDA OLRD MD Pt has a history of depression, currently denies any SI. PHQ9 16 Will ask our [facility] clinician to contact her [...] a nd albumin creatinine ratio >300 mg/g ([facility]) 08/05/2012 Assessment & Plan (05/30/2025 1:15 [...] organization. Date Type Department Care Team Description 08/16/[address] [address] Samreen Pacheco NP October08/06/2025 3:15 PM EST Office Visit [address] [address] Samreen Pacheco NP Encounter for immunization (Primary Dx) 08/06/2025 Travel 08/03/[address] [address] Ute Javier [place] chart prep 07/02/2025 Orders Only GENERIC EXTERNAL DATA DEPARTMENT Provider, Generic External Data 06/27/2025 3:15 PM EDT Office Visit [facility] [address] [place] [address] Samreen Pacheco NP Hypertensive urgency (Primary Dx); CKD stage G4/A3, GFR 15-29 and albumin creatinine ratio >300 mg/g (CMS/HCC) (HCC) 06/27/2025 Travel from Last 3 Months Immunizations Immunization Administration Dates Next Due Hep B, adult 08/06/2025,03/19/2025,02/24/2023 Influenza injectable quadriv alent preservative free 12/14/2018 Influenza, seasonal, injecta ble, preservative free 07/14/2012 Pfizer Covid-19 Vaccine 12+ 05/03/2021, Social History [...] Sign Reading Time Taken Comments Blood Pressure 130/82 08/06/2025 3:20 PM EST Pulse 88 08/06/2025 3:20 PM EST Temperature 36.9 C (98.4 F) 08/06/2025 3:20 PM EST Respiratory Rate 22 08/06/2025 3:20 PM EST Oxygen Saturation 99% 08/06/2025 3:20 PM EST Inhaled Oxygen Concentration - - Weight 78.9 kg (174 lb) 08/06/2025 3:20 PM EST Height 162.6 cm (5' 4 ) 08/06/2025 3:20 PM EST Body Mass Index 29.87 08/06/2025 3:20 PM EST Plan of Treatment Upcoming Encounters Date Type Department Care Team (Late st Contact Info) Description 11/07/2025 2:30 PM EST Office Visit [facility] [address] [place] [address] Samreen Pacheco NP [address] [place] [address] Health Maintenance Due Date Last Done Comments CT Colonography 1980 Colonoscopy 1980 Colorectal Cancer Screening 1980 FIT DNA/Cologuard 1980 FIT 1980 FOBT 1980 Sigmoidoscopy 1980 Family Planning (PISQ) 01/08/1995 HPV Vaccines (1 - 3-dose series) 01/08/1995 DTaP/Tdap/Td Vaccines (1 - Tdap) 01/08/1999 Mammogram 2020 COVID-19 Vaccine (3 - 2024-2 6 season) 2025 05/03/2021, 04/11/2021 Influenza Vaccine (#1) 2025 9, 07/14/2012 Depression Monitoring 01/01/2026 07/03/2025 , 07/03/2025 Alcohol/Substance Use Screening 03/19/2026 03/19/2025 Disability Screening 03/19/2026 03/19/2025 SDOH Screening 03/19/2026 03/19/2025 Tobacco Screening 08/06/2026 08/06/2025 Cervical Cancer Screening 02/11/2028 HPV/Cotest 02/11/2028 02/10/2023 Pap Smear 02/11/2028 02/10/2023 Zoster Vaccines (1 of 2) 01/08/2030 Lipid Panel 04/02/2030 04/02/2025 RSV Patients and Patients Aged 60 years or older (1 - 1-dose 75+ series) 01/08/2055 HIV Screening Completed 02/10/2023 Hepatitis C Screening Completed 02/10/2023 Hepatitis B Vaccines Completed 08/06/2025, 03/19/2025, 02/24/2023 HIB Vaccines Aged Out No longer eligi [...] Procedure Name Priority Date/Time Associated Diagnosis Comments OTHER REF TEST - MISC Routine 07/23/2025 11:10 AM EDT GROSS EXAM WITHOUT SLIDES Routine 07/23/2025 11:[address] GUIDED PERCUTANEOUS BIOPSY RENAL LEFT Routine 07/23/2025 10:33 AM EDT DELAY - BLOOD BANK Routine 07/23/2025 9: 50 AM EDT CBC WITH AUTO DIFFERENTIAL Routine 07/23/2025 9:50 AM EDT HCG, QL, URINE Routine 07/23/2025 9:17 AM EDT US RENAL COMPLETE Routine 07/20/2025 8:1 5 AM EDT IMMUNOFIXATION, SERUM Routine 07/02/2025 1:40 PM EDT [...] Routine 07/02/2025 1:40 PM EDT URINALYSIS, COMPLETE (INCLUDES MACRO AND MICRO) Routine 07/02/2025 1:40 PM EDT CREATININE CLEARANCE [...] Recently Relevant to Health Maintenance Results * Gross Exam without slides (07/23/2025 11:10 AM EDT) 07/23/2025 11:1 0 AM EDT 07/23/2025 12:24 PM EDT [facility] - 08/08/2025 5:39 PM EST ----- ------- Name: Rosario Colbert Age/Sex: 45/F : 1980 Unit#: [id number] Attend Dr: Jose Caldera MD Re07/23/25 Status: [facility] Location: [facility] Disch: ----- ------- SPEC : [id number] RECD: 07/23/25 STATUS: MAHIN MERAZ NUM: [id number] IVET: 07/23/[address] [facility] [address]: Abdulkadir Solomon MD ENTERED: 07/23/25 SP TYPE: Surgical OTHR DR: Jose Caldera MDSamreen ORDERED: GO, EM1, Immunofl., Add. immunofl., [id number] Ref Lab T, [id number] Ref Lab T Addendum Addendum 1 Entered: 08/08/25 Kidney, left, core biopsy: Diagnosis by [facility] Department of Pathology: -Moderate mesangial sclerosis (see note). -Moderate chronic changes. -Global glomerulosclerosis: 25% -Tubular atrophy/interstitial fibrosis: 30% -Vascular sclerosis: Mild-moderate Note: The biopsy reveals moderate mesangial sclerosis with rudimentary nodule formation, along with thickening of the lamina densa evident on electron microscopy. These findings are most often seen in patients with early diabetic renal involvement, and correlation with hemoglobin A1c levels is suggested if this diagnosis is not established in this patient. In the absence of immune complexes, paraprotein involvement, collapsing glomerulopathy, and an acute podocytopathy, a clear secondary proteinuric etiology is not present, and the patient's proteinuria is likely attributable to diabetic kidney disease, moderate nephron loss, and the associated hyper filtration physiology. See the report in its entirety in the EMR - reports/pathology section as a scanned report. Addendum Signed (signature on file) [address] 08/08/251738 ----- ------- Diagnosis Kidney, left, core biopsy: Sent to [facility] for light microscopy, immunofluorescence, and electron microscopy. Their report is pending; addendum to follow. Clinical History CKD Stage 4 CONTINUED ON NEXT PAGE ----- ------- Name: Rosario Colbert Age/Sex: 45/F : 1980 Unit#: [id number] Attend Dr: Jose Caldera MD Re07/23/25 Status: [facility] Location: [facility] Disch: ----- ------- SPEC : [id number] RECD: 07/23/25 STATUS: DAMONPeña MERAZ NUM: [id number] IVET: 07/23/[address] [facility] [address]: Abdulkadir Solomon MD ENTERED: 07/23/25 SP TYPE: Surgical OTHR DR: Jose Calder[facility] ORDERED: GO, EM1, Immunofl., Add. immunofl., [id number] Ref Lab T, [id number] Ref Lab T Material Received Left renal bx Gross Description Received fresh, on ice, on saline dampened Telfa, labeled left renal biopsy are 2 cylindrical cores of red-pink soft tissue measuring 0.5 and 1.6 cm in length, both with a diameter of 0.1 cm which are entirely submitted to [facility] for further studies. No sections taken. ([facility]) IHC S/NG Disclaimer NOTE: Unless otherwise stated, all tissue is formalin-fixed and paraffin-embedded. Some or all of the immunohistochemical tests reported herein may have been developed and their performance characteristics determined by [facility]. They have not been cleared or approved by the U.S. Food and Drug Administration (FDA). However, the FDA has determined that such clearance or approval is not necessary. This laboratory is certified under the Clinical Laboratory Improvement Amendments of 1988 (CLIA) as qualified to perform high complexity clinical laboratory testing. Copies To: Jose Caldera MD [facility] [address] [place] [address] [address] [place] [address] [email or web address] Abdulkadir Solomon MD [address] [place], [place] [id number] Samreen Pacheco [facility] [address] [place] [address] CONTINUED ON NEXT PAGE ----- ------- Name: SolanoRosario Tesfaye Age/Sex: 45/F : 1980 Unit#: [id number] Attend Dr: Jose Caldera MD Re07/23/25 Status: [facility] Location: [facility] Disch: ----- ------- SPEC : [id number] RECD: 07/23/25 STATUS: MAHIN MERAZ NUM: [id number] IVET: 07/23/25-[address] [facility] [address]: Abdulkadir Solomon MD ENTERED: 07/23/25 SP TYPE: Surgical OTHR DR: Jose Caldera MD, Muriel ORDERED: ROGERS, EM1, Immunofl., Add. immunofl., [id number] Ref Lab T, [id number] Ref Lab T ----- ------- Signed (signature on file) Sahara Jad 07/25/25 1006 ----- ------- END OF REPORT Generic External Data Provider LAB BLOOD ORDERAB LES Final Result Performing Organization Address [facility] Co de Phone Number [facility] [address] [place] [address] [phone] * Other Reference Test - Misc (07/23/2025 11:10 AM EDT) Other Ref Test Misc See Note [facility] Comment:See the report from [facility] scanned into thePathology reports section of the EMR. 07/23/2025 11:1 0 AM EDT 07/23/2025 12:24 PM EDT Narrative [facility] - 08/08/2025 8:53 AM EST Kidney bx, [id number] sent to [facility] Generic External Data Provider LAB BLOOD ORDERAB LES Final Result Performing Organization Address [facility] Co de Phone Number [facility] [address] [place] [address] [phone] * CT Guided Percutaneous Biopsy Renal Left (07/23/2025 10:33 AM EDT) Anatomical Region Laterality Modality Kidney Left Computed Tomogra phy 07/23/2025 10:3 3 AM EDT Narrative 07/25/2025 11:23 AM EDT [address] [address] [address] Scan Report Signed Patient: Rosario Colbert MR#: [id number] : 1980 Acct:[id number] Age/Sex: 45 / F ADM Date: 07/23/25 Loc: [facility] Attending Dr: Jose Caldera MD Ordering Physician: Jose Caldera MD Date of Service: 07/23/25 Procedure(s): CT biopsy renal LT Accession Number(s): [id number] cc: Samreen Pacheco; Jose Caldera MD Report Number: [id number]: Total DLP = 290.00 mGy-cm Reason for Exam: N18.4 - Chronic kidney disease, stage 4 (severe) PROCEDURE: CT GUIDED BIOPSY, KIDNEY CLINICAL INFORMATION: Chronic kidney disease. COMPARISON: Ultrasound kidney 07/20/2025 TECHNIQUE: Following explaining CT fluoroscopy guided kidney biopsy procedure, benefits and risk, a written consent was obtained. Patient was placed prone on CT fluoroscopy table and preliminary CT imaging was obtained through the posterior abdomen with attention the kidneys. An optimal axial slice was selected and markers placed and repeat imaging obtained. An optimal marker was selected and marked on the skin overlying the left posterior abdomen. The marked site was cleaned and draped in usual sterile manner. 1% lidocaine was injected puncture site. Through a small skin incision an 18-gauge guide needle was advanced from the the skin into the lower pole cortex left kidney. Coaxially a second needle was advanced and a 3 pass left kidney core biopsy was performed. Gelfoam was injected through the guide needle into the left renal cortex to achieve hemostasis. Repeat CT imaging was obtained. Following removal of the guide needle complete skin hemostasis was obtained. Sterile dressing applied post procedure. Patient tolerated procedure extremely well. Repeat postprocedure CT was performed. Conscious sedation was utilized during exam and patient monitored by IR nurse and physician. This CT examination was performed using dose optimization techniques as appropriate, variously including the following: *Automated exposure control *Adjustment of mA and/or kV according to patient size (this includes techniques or standardized protocols for targeted exams where dose is matched to indication/reason for exam; i.e. extremities or head) *Use of iterative reconstruction technique FINDINGS: On preliminary CT imaging there are small radiopaque bilateral renal calculi. The largest calculi nonobstructive lower pole right kidney measures 7.5 mm. Bilateral extrarenal kidney pelvises are noted. A simple 3 cm upper pole left renal cyst is noted Successful CT fluoroscopy guided left renal lower pole cortex core biopsy was performed. Repeat CT imaging post procedure revealed no hematoma. CT/CT biopsy renal LT IMPRESSION: Successful CT fluoroscopy guided left renal lower pole cortex core biopsy performed. Incidental finding of bilateral nephrolithiasis with extrarenal kidney pelvis. No caliectasis seen. Moderate-sized left renal cyst is noted. DLP: 290 mGy/cm. Sedation time: 18 minutes Electronically signed by: Abdulkadir Solomon MD 07/25/2025 11:20 AM EDT RP Dictated By: Abdulkadir Solomon MD Signed By: <Electronically signed by Abdulkadir Solomon MD in OV> 07/25/25 1120 DD/ 1033 TD/TT: 07/23/25 1124 Planting Machine Crewman: [facility] Procedure Note Donotuseinterpreter, Image - 07/25/[address] [place] [address] [address] Scan Report Signed Patient: Danny Colbert#: [id number] : 1980Acct:[id number] Age/Sex: 45 / FADM Date: 07/23/25 Loc: [facility] Attending Dr: Jose Caldera MD Ordering Physician: Jose Caldera MD Date of Service: 07/23/25 Procedure(s): CT biopsy renal LT Accession Number(s): [id number] cc: Lalo Pacheco Shaji P MD Report Number: [id number]: Total DLP = 290.00 mGy-cm Reason for Exam: N18.4 - Chronic kidney disease, stage 4 (severe) PROCEDURE: CT GUIDED BIOPSY, KIDNEY CLINICAL INFORMATION: Chronic kidney disease. COMPARISON: Ultrasound kidney 07/20/2025 TECHNIQUE: Following explaining CT fluoroscopy guided kidney biopsy procedure, benefits and risk, a written consent was obtained. Patient was placed prone on CT fluoroscopy table and preliminary CT imaging was obtained through the posterior abdomen with attention the kidneys. An optimal axial slice was selected and markers placed and repeat imaging obtained. An optimal marker was selected and marked on the skin overlying the left posterior abdomen. The marked site was cleaned and draped in usual sterile manner. 1% lidocaine was injected puncture site. Through a small skin incision an 18-gauge guide needle was advanced from the the skin into the lower pole cortex left kidney. Coaxially a second needle was advanced and a 3 pass left kidney core biopsy was performed. Gelfoam was injected through the guide needle into the left renal cortex to achieve hemostasis. Repeat CT imaging was obtained. Following removal of the guide needle complete skin hemostasis was obtained. Sterile dressing applied post procedure. Patient tolerated procedure extremely well. Repeat postprocedure CT was performed. Conscious sedation was utilized during exam and patient monitored by IR nurse and physician. This CT examination was performed using dose optimization techniques as appropriate, variously including the following: *Automated exposure control *Adjustment of mA and/or kV according to patient size (this includes techniques or standardized protocols for targeted exams where dose is matched to indication/reason for exam; i.e. extremities or head) *Use of iterative reconstruction technique FINDINGS: On preliminary CT imaging there are small radiopaque bilateral renal calculi. The largest calculi nonobstructive lower pole right kidney measures 7.5 mm. Bilateral extrarenal kidney pelvises are noted. A simple 3 cm upper pole left renal cyst is noted Successful CT fluoroscopy guided left renal lower pole cortex core biopsy was performed. Repeat CT imaging post procedure revealed no hematoma. CT/CT biopsy renal LT IMPRESSION: Successful CT fluoroscopy guided left renal lower pole cortex core biopsy performed. Incidental finding of bilateral nephrolithiasis with extrarenal kidney pelvis. No caliectasis seen. Moderate-sized left renal cyst is noted. DLP: 290 mGy/cm. Sedation time: 18 minutes Electronically signed by: Abdulkadir Solomon MD 07/25/2025 11:20 AM EDT Dictated By: Abdulkadir Solomon MD Signed By: <Electronically signed by Abdulkadir Solomon MD in OV> 07/25/25 1120 DD/ 1033 TD/TT: 07/23/25 1124 Planting Machine Crewman: [facility] External Provider IMG CT PROCEDURES Final Result * (ABNORMAL) CBC auto differential (07/23/2025 9:50 AM EDT) Only the most recent of2 resultswithin the time period is included. White Blood Count 5.9 4.8 - 10.8 X10*3/uL [facility] Red Blood Count 3.97(L) 4.20 - 5.50 X10*6/uL [facility] Hemoglobin 11.4(L) 12.0 - 16.0 g/dl [facility] Hematocrit 34.3(L) 37.0 - 47.0 % [facility] Mean Corpuscular Volume 86.4 80.0 - 98.0 fL [facility] Mean Corpuscular Hemoglobin 28.7 27.0 - 33.0 pg [facility] Mean Corpuscular HGB Conc 33.2 31.0 - 35.0 g/dl [facility] Red Cell Distribution Width 13.2 11.0 - 16.0 % [facility] Platelet Count 177 160 - 400 X10*3/uL [facility] Mean Platelet Volume 9.8 9.4 - 12.3 fL [facility] Neutrophils Percent Auto 45.3 45 - 73 % [facility] Imm Gran Pct Auto 0.2 0.0 - 0.4 % [facility] Lymphocytes Percent Auto 41.2(H) 20 - 40 % [facility] Monocytes Percent Auto 8.5 2 - 11 % [facility] Eosinophils Percent Auto 3.9 0 - 4 % [facility] Basophils Percent Auto 0.9 0 - 2 % [facility] NRBC Pct Auto 0.0 0.0 - 0.2 /100WBC [facility] Neutrophils Absolute Auto 2.7 2.0 - 8.3 x10*3/uL [facility] Imm Gran Abs Auto 0.01 0.00 - 0.03 X10*3/uL [facility] Lymphocytes Absolute Auto 2.4 1.2 - 4.9 X10*3/uL [facility] Monocytes Absolute Auto 0.5 0.1 - 1.2 X10*3/uL [facility] Eosinophils Absolute Auto 0.2 0.0 - 0.4 X10*3/uL [facility] Basophils Absolute Auto 0.1 0.0 - 0.2 X10*3/uL [facility] NRBC Abs Auto 0.000 0.0 - 0.012 X10*3/uL [facility] 07/23/2025 9:50 AM EDT 07/23/2025 9:56 AM EDT us Generic External Data Provider LAB BLOOD ORDERAB LES Final Result Performing Organization Address [facility] Co de Phone Number [facility] [address] [place] [phone] * HCG, Qualitative, Urine (07/23/2025 9:17 AM EDT) Urine NEGATIVE NEGATIVE [facility] Comment:This test was develo ped to detect early . Falsenegative results may occur after the 5th - 7th week ofpregnancy when using this test method. If clinicallyindicated, consider a serum hCG. 07/23/2025 9:17 AM EDT 07/23/2025 9:24 AM EDT us Generic External Data Provider LAB URINE ORDERAB LES Final Result Performing Organization Address [facility] Co de Phone Number [facility] [address] [place] [phone] * US Renal Complete (07/20/2025 8:15 AM EDT) Anatomical Region Laterality Modality Kidney Ultrasound 07/20/2025 8:15 AM EDT Narrative 07/20/2025 9:14 AM EDT [address] [address] Ultrasound Report Signed Patient: Rosario Colbert MR#: [id number] : 1980 Acct:[id number] Age/Sex: 45 / F ADM Date: 07/20/25 Loc: .US Attending Dr: Jose Caldera MD Ordering Physician: Jose Caldera MD Date of Service: 07/20/25 Procedure(s): US renal BI Accession Number(s): [id number] cc: Samreen Pacheco; Jose Caldera MD Reason for Exam: I10 - Essential (primary) hypertension EXAMINATION: US KIDNEY BILATERAL HISTORY: I10 - Essential (primary) hypertension TECHNIQUE: Real-time grayscale ultrasound imaging of the kidneys was performed and images were reviewed. COMPARISON: Comparison is made with the prior examination dated 08/05/2020. FINDINGS: Right kidney: The right kidney measures 9.6 x 5.6 x 5.1 cm. There is diffusely increased renal cortical echotexture, consistent with chronic medical renal disease. There is a 7 mm upper pole cyst. Multiple nonobstructing calculi are noted including a 5 x 3 x 5 mm calculus in the interpolar region and lower pole calculi measuring 13 x 6 x 11 mm and 4 x 4 by 2 x 3 mm. There is fullness of the renal pelvis. Left Kidney: The left kidney measures 12.4 x 5.3 x 4.2 cm. There is diffusely increased renal cortical echotexture, consistent with chronic medical renal disease. There are upper pole cyst measuring 2.6 x 2.1 x 2.8 cm and 0.8 x 0.8 x 0.7 cm. There are nonobstructing calculi in the interpolar region measuring 3 x 2 x 3 mm and 4 x 4 by 3 x 4 mm. There is a lower pole calculus measuring 6 x 2 x 6 mm. There is fullness of the renal pelvis. US/US renal BI IMPRESSION: 1. Increased renal echotexture, consistent with chronic medical renal disease. 2. Bilateral nephrolithiasis as described. 3. Fullness of the bilateral renal pelves. No hydronephrosis. Electronically signed by: Lloyd Hernandez MD 07/20/2025 09:12 AM EDT Dictated By: Lloyd Hernandez MD Signed By: <Electronically signed by Lloyd Hernandez MD in OV> 07/20/25 0912 DD/ 0815 TD/TT: 07/20/25 0843 Planting Machine Crewman: Procedure Note Donotuseinterpreter, Image - 07/20/[address] [address] Ultrasound Report Signed Patient: Danny Colbert#: [id number] : 1980Acct:[id number] Age/Sex: 45 / FADM Date: 07/20/25 Loc: HO.US Attending Dr: Jose Caldera MD Ordering Physician: Jose Caldera MD Date of Service: 07/20/25 Procedure(s): US renal BI Accession Number(s): [id number] cc: Samreen Pacheco; Jose Caldera MD Reason for Exam: I10 - Essential (primary) hypertension EXAMINATION: US KIDNEY BILATERAL HISTORY: I10 - Essential (primary) hypertension TECHNIQUE: Real-time grayscale ultrasound imaging of the kidneys was performed and images were reviewed. COMPARISON: Comparison is made with the prior examination dated 08/05/2020. FINDINGS: Right kidney: The right kidney measures 9.6 x 5.6 x 5.1 cm. There is diffusely increased renal cortical echotexture, consistent with chronic medical renal disease. There is a 7 mm upper pole cyst. Multiple nonobstructing calculi are noted including a 5 x 3 x 5 mm calculus in the interpolar region and lower pole calculi measuring 13 x 6 x 11 mm and 4 x 4 by 2 x 3 mm. There is fullness of the renal pelvis. Left Kidney: The left kidney measures 12.4 x 5.3 x 4.2 cm. There is diffusely increased renal cortical echotexture, consistent with chronic medical renal disease. There are upper pole cyst measuring 2.6 x 2.1 x 2.8 cm and 0.8 x 0.8 x 0.7 cm. There are nonobstructing calculi in the interpolar region measuring 3 x 2 x 3 mm and 4 x 4 by 3 x 4 mm. There is a lower pole calculus measuring 6 x 2 x 6 mm. There is fullness of the renal pelvis. US/US renal BI IMPRESSION: 1. Increased renal echotexture, consistent with chronic medical renal disease. 2. Bilateral nephrolithiasis as described. 3. Fullness of the bilateral renal pelves. No hydronephrosis. Electronically signed by: Lloyd Hernandez MD 07/20/2025 09:12 AM EDT RP Dictated By: Lloyd Hernandez MD Signed By: <Electronically signed by Lloyd Hernandez MD in OV> 07/20/25911 DD/ 4 TD/TT: 07/20/25842 [employer]ing Machine Crewman: [facility] External Provider IMG US PROCEDURES Final Result * (ABNORMAL) Proteinase-3 Antibody (07/02/2025 1:40 PM EDT) Proteinase-3 Antibody 2.5(A) [facility] Comment:Value Interpretation ----- <1.0 No Antibody Detected > or = 1.0 Antibody DetectedAutoantibodies to proteinase-3 (AR-3) are accepted ascharacteristic for granulomatosis with polyangiitis(GPA, Bobbi's), and are detectable in 95% of thehistologically proven cases. The cytoplasmic IFApattern, (c-ANCA), is based largely on autoantibody toPR-3 which serves as the primary antigen.These autoantibodies are present in active disease.THIS TEST WAS PERFORMED AT:[facility] [place] [phone] KHAN MD 07/02/2025 1:40 PM EDT 07/02/2025 6:19 PM EDT Generic External Data Provider LAB BLOOD ORDERAB LES Final Result [facility] [address] [place] [phone] * Myeloperoxidase Antibody (MPO) (07/02/2025 1:40 PM EDT) Myeloperoxidase Antibody <1.0 [facility] Comment:Value Interpretation ----- <1.0 No Antibody Detected > or = 1.0 Antibody DetectedAutoantibodies to myeloperoxidase (MPO) are commonlyassociated with the following small-vesselvasculitides: microscopic polyangiitis,polyarteritis nodosa, Churg-Doug syndrome,necrotizing and crescentic glomerulonephritis andoccasionally granulomatosis with polyangiitis(GPA, Bobbi's). The perinuclear IFA pattern,(p-ANCA) is based largely on autoantibody tomyeloperoxidase which serves as the primary antigen.These autoantibodies are present in active disease.THIS TEST WAS PERFORMED AT:[facility] [place] [phone] KHAN MD 07/02/2025 1:40 PM EDT 07/02/2025 6:19 PM EDT Generic External Data Provider LAB BLOOD ORDERAB LES Final Result Performing Organization Address [facility] de Phone Number [facility] [address] [place] [phone] * (ABNORMAL) Protein Creatinine Ratio, Urine (07/02/2025 1:40 PM EDT) Creatinine, Urine 76.90 mg/dL [facility] Protein, Total, Random Urine 180(H) <12 mg/dL [facility] Protein/Creati nine Ratio, Ur 2.34(H) <0.2 [facility] Comment:The spot urine prote in:creatinine ratio may increase to 0.3during normal . 07/02/2025 1:40 PM EDT 07/02/2025 6:00 PM EDT us Generic External Data Provider LAB URINE ORDERAB LES Final Result Performing Organization Address [facility] Co de Phone Number [facility] [address] [place] [phone] * Phospholipase A2 Receptor (PLA2R) Antibody Panel (07/02/2025 1:40 PM EDT) Phospholipase A2 Receptor (PLA2R) Ab, NAYE <4 RU/mL [facility] Comment:Reference Range: <14 : NEGATIVE 14-19: BORDERLINE >19: POSITIVE Phospholipase A2 Receptor (PLA2R) Ab, IFA NEGATIVE NEGATIVE [facility] Comment:THIS TEST WAS PERFOR MED AT:[facility] [id number] [place] [address]WPIIDMICK HARRINGTON MD,PHD,RAINA 07/02/2025 1:40 PM EDT 07/02/2025 6:19 PM EDT Generic External Data Provider LAB BLOOD ORDERAB LES Final Result Performing Organization Address [facility]/ZIP Co de Phone Number [facility] [address] [place] [phone] * Immunofixation (TERESA), Urine (07/02/2025 1:40 PM EDT) TERESA Interpretation [facility] Comment:No monoclonal protei ns detectedTHIS TEST WAS PERFORMED AT:[facility] [address] [phone] KHAN MD 07/02/2025 1:40 PM EDT 07/02/2025 6:00 PM EDT us Generic External Data Provider LAB URINE ORDERAB LES Final Result Performing Organization Address [facility]/ZIP Co de Phone Number [facility] [address] [place] [phone] * (ABNORMAL) Creatinine, Serum (07/02/2025 1:40 PM EDT) Creatinine, Serum 2.63(H) 0.5 - 1.4 mg/dL [facility] Estimated Glomerular Filt Rate 20 [facility] Comment:Chronic Kidney Disea se: Estimated GFR < 60 mL/min/1.50m2Sumcct Kidney Disease: Estimated GFR < 15 mL/min/1.73m2 07/02/2025 1:40 PM EDT 07/02/2025 6:19 PM EDT Generic External Data Provider LAB BLOOD ORDERAB LES Final Result Performing Organization Address [facility] Co de Phone Number [facility] [address] [place] [phone] * Glomerular Basement Membrane Antibody (IgG) (07/02/2025 1:40 PM EDT) Glomerular Basement Memebrane Antibody (IgG) <1.0 AI [facility] Comment:Value Interpretation ----- <1.0 No Antibody Detected > or = 1.0 Antibody DetectedTHIS TEST WAS PERFORMED AT:[facility] [address] [phone] KHAN MD 07/02/2025 1:40 PM EDT 07/02/2025 6:19 PM EDT Generic External Data Provider LAB BLOOD ORDERAB LES Final Result Performing Organization Address [facility] de Phone Number [facility] [address] [place] [phone] * DNA (ds) Antibody (07/02/2025 1:40 PM EDT) Anti DNA DS Antibody 1 IU/mL [facility] Comment:IU/mL Interpretation < or = 4 Negative 5-9 Indeterminate > or = 10 PositiveTHIS TEST WAS PERFORMED AT:[facility] [address] [id number] KHAN MD 07/02/2025 1:40 PM EDT 07/02/2025 6:19 PM EDT Generic External Data Provider LAB BLOOD ORDERAB LES Final Result Performing Organization Address City/[facility] Co de Phone Number [facility] [address] [place] [phone] * Hepatitis B surface antigen, EIA (07/02/2025 1:40 PM EDT) Hepatitis B Surface Ag Negative Negative [facility] 07/02/2025 1:40 PM EDT 07/02/2025 6:19 PM EDT Generic External Data Provider LAB BLOOD ORDERAB LES Final Result Performing Organization Address [facility] Co de Phone Number [facility] [address] [place] [phone] * Hepatitis B Core Antibody, Total (07/02/2025 1:40 PM EDT) Hepatitis B Core Antibody Nonreactive Nonreactive [facility] 07/02/2025 1:40 PM EDT 07/02/2025 6:19 PM EDT Generic External Data Provider LAB BLOOD ORDERAB LES Final Result Performing Organization Address [facility] de Phone Number [facility] [address] [place] [phone] * (ABNORMAL) Urinalysis Complete (07/02/2025 1:40 PM EDT) Color Urine Yellow [facility] Appearance Urine Hazy [facility] PH 6.0 5.0 - 9.0 [facility] Glucose Urine UA Negative Negative mg/dL [facility] Urine Blood Trace Negative [facility] Specific [place] - Urine 1.010 1.005 - 1.025 [facility] Urine Protein 100 (2+)(A) Neg-Trace mg/dL [facility] Urine Ketones Negative Negative mg/dL [facility] Nitrite Urine Positive(A) Negative [facility] Leukocyte Esterase Urine Moderate (2+)(A) Negative [facility] RBC Urine 0-2 0 - 2 /HPF [facility] Urine WBC 6-10 0 - 5 /HPF [facility] Urine Squamous Epithelial Cell 3-5 0 - 2 /HPF [facility] Urine Bacteria 2+ None Seen [facility] Hyaline Casts, Urine 0-2 0 - 2 /LPF [facility] 07/02/2025 1:40 PM EDT 07/02/2025 6:00 PM EDT Generic External Data Provider LAB URINE ORDERAB LES Final Result Performing Organization Address City/[facility]/ZIP Co de Phone Number [facility] [address] [place] [phone] * (ABNORMAL) Prothrombin Time-INR (07/02/2025 1:40 PM EDT) Prothrombin Time 10.4(L) 10.9 - 12.4 SEC [facility] INTERNATIONAL NORM RATIO 0.9 0.9 - 1.1 [facility] Comment:INTERNATIONAL NORMAL IZED RATIO (INR) REFERENCE [...] ORDERAB LES Final Result Performing Organization Address [facility]/ZIP Co de Phone Number [facility] [address] [place] [address] [phone] * (ABNORMAL) Immunofixation, Serum (07/02/2025 1:40 PM EDT) IMMUNOGLOBULIN G 1586 600 - 1640 mg/dL [facility] IMMUNOGLOBULIN A 338(A) 47 - 310 mg/dL [facility] Immunoglobulin M 66 50 - 300 mg/dL [facility] Comment:THIS TEST WAS PERFOR MED AT:[facility] [address] [phone] KHAN MD Immunofixation Result [facility] Comment:No monoclonal protei ns detected 07/02/2025 1:40 PM EDT 07/02/2025 6:19 PM EDT Generic External Data Provider LAB BLOOD ORDERAB LES Final Result Performing Organization Address [facility] Co de Phone Number [facility] [address] [place] [phone] * Complement Component C3c (07/02/2025 1:40 PM EDT) Complement C3 157 83 - 193 mg/dL [facility] Comment:THIS TEST WAS PERFOR MED AT:[facility] [address] [phone] KHAN MD 07/02/2025 1:40 PM EDT 07/02/2025 6:16 PM EDT Generic External Data Provider LAB BLOOD ORDERAB LES Final Result Performing Organization Address City/[facility]/ZIP Co de Phone Number [facility] [address] [place] [phone] * Complement Component C4c (07/02/2025 1:40 PM EDT) Complement C4 22 15 - 57 mg/dL [facility] Comment:THIS TEST WAS PERFOR MED AT:[facility] [address] [phone] KHAN MD 07/02/2025 1:40 PM EDT 07/02/2025 6:16 PM EDT us Generic External Data Provider LAB BLOOD ORDERAB LES Final Result Performing Organization Address [facility] Co de Phone Number [facility] [address] [place] [phone] * (ABNORMAL) BUN (Blood Urea Nitrogen) (07/02/2025 1:40 PM EDT) Urea Nitrogen (BUN) 36(H) 9 - 16 mg/dL [facility] 07/02/2025 1:40 PM EDT 07/02/2025 6:19 PM EDT us Generic External Data Provider LAB BLOOD ORDERAB LES Final Result Performing Organization Address [facility] Co de Phone Number [facility] [address] [place] [phone] * ALT (07/02/2025 1:40 PM EDT) Alanine Aminotransferase 24 0 - 31 U/L [facility] 07/02/2025 1:40 PM EDT 07/02/2025 6:19 PM EDT us Generic External Data Provider LAB BLOOD ORDERAB LES Final Result Performing Organization Address [facility] de Phone Number [facility] [address] [place] [phone] * AST (07/02/2025 1:40 PM EDT) Aspartate Amino Transferase 30 5 - 31 U/L [facility] 07/02/2025 1:40 PM EDT 07/02/2025 6:19 PM EDT us Generic External Data Provider LAB BLOOD ORDERAB LES Final Result Performing Organization Address [facility] Co de Phone Number [facility] [address] [place] [phone] * Hemoglobin A1c (07/02/2025 1:40 PM EDT) Hemoglobin A1c 5.6 <6.0 % [facility] Comment:Hemoglobin A1C Refer ence Range Adults: 4.8 - 6.0 % Non diabetic: < 6.0 % Goal: < 7.0 %Additional Action Suggested: > 8.0 %Note: Hemoglobin A1c results are invalid for patients with abnormal amounts of HbF. Blood transfusions may impact the HbA1c concentration in the patient sample. Estimated Average Glucose 114 mg/dL [facility] Comment:eAG = Estimated ave rage glucose which is %A1C expressed asaverage glucose, using the formula of the D8F-ZvycvknPlnonde Glucose study (ADAG), Diabetes Care, Vol.31,#8,2007 07/02/2025 1:40 PM EDT 07/02/2025 6:18 PM EDT Generic External Data Provider LAB BLOOD ORDERAB LES Final Result Performing Organization Address City/[facility] Co de Phone Number [facility] [address] [place] [phone] * Calcium (07/02/2025 1:40 PM EDT) Calcium 9.3 8.4 - 10.2 mg/dL [facility] 07/02/2025 1:40 PM EDT 07/02/2025 6:19 PM EDT Generic External Data Provider LAB BLOOD ORDERAB LES Final Result Performing Organization Address [facility] Co de Phone Number [facility] [address] [place] [phone] * Albumin (07/02/2025 1:40 PM EDT) Albumin Level 4.1 3.5 - 5.0 g/dL [facility] 07/02/2025 1:40 PM EDT 07/02/2025 6:19 PM EDT us Generic External Data Provider LAB BLOOD ORDERAB LES Final Result Performing Organization Address [facility] Co de Phone Number [facility] [address] [place] [phone] * (ABNORMAL) Electrolyte Panel (07/02/2025 1:40 PM EDT) Sodium 135 135 - 145 mmol/L [facility] Potassium 4.8 3.3 - 5.1 mmol/L [facility] Chloride 106 96 - 108 mmol/L [facility] Carbon Dioxide 23 22 - 29 mmol/L [facility] Anion Gap 11(L) 12 - 20 [facility] 07/02/2025 1:40 PM EDT 07/02/2025 6:19 PM EDT Generic External Data Provider LAB BLOOD ORDERAB LES Final Result Performing Organization Address [facility] de Phone Number [facility] [address] [place] [phone] * (ABNORMAL) Creatinine Clearance (07/02/2025 4:00 AM EDT) Creatinine, Serum 2.63(H) 0.5 - 1.4 mg/dL [facility] Creatinine Clearance 24.3(L) 85 - 125 mL/min [facility] Creatinine, 24 Hour Urine 0.9(L) 1.0 - 2.0 G/Day [facility] Creatinine, Urine 40.95 [facility] Urine Total Volume 24 Hour 2,250 mL [facility] 07/02/2025 4:00 AM EDT 07/02/2025 6:26 PM EDT Narrative [facility] - 07/02/2025 7:21 PM EDT [id number] us Generic External Data Provider LAB BLOOD ORDERAB LES Final Result Performing Organization Address [facility]/ZIP Co de Phone Number [facility] [address] [place] [phone] * ECG 12 lead (06/27/2025 6:06 PM EDT) Narrative Samreen Pacheco NP - 06/27/2025 6:06 PM EDT HR 65 bpm, no ST changes; sinus arrhythmia EKG Samreen Pacheco NP ECG ORDERABLES Final Result * (ABNORMAL) Lipid Panel, Standard (04/02/2025 8:44 AM EDT) Triglycerides 183(H) <150 mg/dL [facility] Comment:Desirable Triglyceri de: less than 150 mg/dLBorderline High Triglyceride 150-199 mg/dLHigh Triglyceride: 200-499 mg/dLVery High Triglyceride: greater than or equal to 5OO mg/dL Cholesterol 224(H) <200 mg/dL [facility] Comment:Desirable Cholestero l: less than 200 mg/dLBorderline High Cholesterol: 200-239 mg/dLHigh Cholesterol: greater than 239 mg/dL LDL Cholesterol Calculated 140(H) <100 mg/dL [facility] Comment:Desirable LDL: less than 100 mg/dLNear Optimal/Above Optimal LDL: 110- 129 mg/dLBorderline High LDL: 130-159 mg/dLHigh LDL: 160-189 mg/dLVery High LDL: greater than or equal to 190 mg/dL HDL Cholesterol 48 >40 mg/dL [facility] Comment:Desirable HDL: great er than 40 mg/dL Note: This HDL assay may give artificially low results in patients with liver disease. Blood Venous blood specimen / Unknown 04/02/2025 8:44 AM EDT 04/02/2025 11:17 AM EDT Samreen Pacheco NP LAB BLOOD ORDERABLES Final Resu lt Performing Organization Address [facility]/ZIP Co de Phone Number [facility] [address] [place] [phone] * Hepatitis C Antibody with Reflex to HCV, RNA, Quantitative, Real-Time PCR (02/10/2023 11:42 AM EDT) Hepatitis C Antibody NON-REACT HARSHAD NON-REACT HARSHAD [employer] [place] [employer] Index 0.03 <1.00 [employer] [place] [employer] Comment: HCV antibody was non-reactive. There is no laboratory evidence of HCV infection. In most cases, no further action is required. However, if recent HCV exposure is suspected, a test for HCV RNA (test code 44603) is suggested. For additional information please refer to http://[employer]/faq/ZIY38w2 (This link is being provided for informational/ educational purposes only.) Blood Venous blood specimen / Unknown 02/10/2023 11:42 AM EDT 02/10/2023 11:43 AM EDT Narrative [facility] - 02/12/2023 4:32 PM EDT FASTING:NO FASTING: NO Fatou Colby [facility] LAB BLOOD ORDERABLES Benita l Result [facility] [address], [place] [address] [employer] [place] [employer] [address] [place] [phone] * HIV-1/2 Antigen and Antibodies, Fourth Generation, with Reflexes (02/10/2023 11:42 AM EDT) HIV Antigen/Antibody, 4th Generation NON-REAC TIVE NON-REAC TIVE [employer] [place] [employer] Comment: HIV-1 antigen and HIV-1/HIV-2 antibodies were [...] purpose. For additional information please refer to http://education.[employer]/faq/PRY425 (This link is being provided for informational/ educational purposes only.) The performance of this assay has not been clinically validated in patients less than 2 years old. Blood Venous blood specimen / Unknown 02/10/2023 11:42 AM EDT 02/10/2023 11:43 AM EDT Narrative [facility] - 02/12/2023 4:32 PM EDT FASTING:NO FASTING: NO us Fatou Colby [facility] LAB BLOOD ORDERABLES Benita l Result [address], [place] [address] [employer] [address] [place] [phone] * Image-Guided Pap with Age-Based Screening??with CT/NG,??Trichomonas (02/10/2023 11:27 AM EDT) Comment [employer] Comment: This order for age-based cervical cancer and STI screening follows ACOG guidelines(PB 168, 140, UGE209). See individual assays for performing site location. Clinical Information: RTN SCREEN [facility] LMP: NONE GIVEN [facility] Prev. PAP: NONE GIVEN [facility] Prev. BX: NONE GIVEN [facility] SOURCE: None given [facility] Statement Of Adequacy: [employer] Comment: Satisfactory for evaluation. Endocervical/transformation zone component absent. Interpretation/Re sult: Negative for intraepithelial lesion or malignancy. [facility] Infection Shift in vaginal hui suggestive of bacterial vaginosis. [facility] Comment: This Pap test has been evaluated with computer assisted technology. [employer] Hydro Mechanic: [employer] Comment: DCR, CT(ASCP) CT screening location: [place] [address] Review Hydro Mechanic: [employer] Comment: WAC, CT(ASCP) CT screening location: [address] [address] (Always Message) [facility] [employer] [place] [employer] Comment: EXPLANATORY NOTE: The Pap is a [...] HPV nRNA E6/E7 Not Detected Not Detected [employer] [place] [employer] Comment: Methodology: [employer] Director-Mediated Amplification This assay detects E6/E7 viral messenger RNA (mRNA) from 14 high-risk HPV types (16,18,31,33,35,39,45,51,52,56,58,59,66,68). Cervical sources are required for HPV testing. If a vaginal source from a patient who has had a total hysterectomy with removal of cervix was submitted, please contact the testing laboratory for alternative testing options. For additional information, please refer to http://[employer]/faq/UER170v7 (This link if provided for information/ educational purposes only.) Chlamydia trachomatis RNA, TMA, Urogenital NOT DETECTED NOT DETECTED [employer] [place] [email or web address] Neisseria gonorrhoeae RNA, TMA, Urogenital NOT DETECTED NOT DETECTED [employer] [place] [employer] Comment [employer] [place] [employer] Comment: The analytical performance characteristics of this assay, when used to test SurePath(TM) specimens have been determined by [employer]. The modifications have not been cleared or approved by the FDA. This assay has been validated pursuant to the CLIA regulations and is used for clinical purposes. For additional information, please refer to https://[employer]/faq/KGC281 (This link is being provided for information/ educational purposes only.) Trichomonas vaginalis, QL, TMA, PAP Vial NOT DETECTED NOT DETECTED [employer] [place] [employer] Comment: The analytical performance characteristics of this assay have been determined by [employer]. The modifications have not been cleared or approved by the FDA. This assay has been validated pursuant to the CLIA regulations and is used for clinical purposes. For additional information, please refer to http://[employer]/ faq/Trichomonastma (This link is being provided for information/ educational purposes only.) Pap Vial 02/10/2023 11:2 7 AM EDT 02/11/2023 7:10 AM EDT Fatou Colby CN LAB CYTOLOGY ORDERABLES F inal Result [facility] [address], [place] [address] [employer] [facility] [address] [place] [address] from Last 3 Months or Most Recently Relevant to Health Maintenance Insurance [address] [place], [place] [address] Care Teams Painting Trades Worker Relationship Specialty Start Date End Date Samreen Pacheco NP [address] [place] [address] PCP - General Family Medicine 07/06/23
== END 2025-09-13 16:13 | disposition home or self-care (01) ==
LOC: HO.HKAS 15:44
PROVIDERS: PCP Nurse Practitioner; Visit Provider Internal Medicine Nephrology
DX: N18.4 Chronic kidney disease, stage 4 (severe) (principal); N25.81 Secondary hyperparathyroidism of renal origin; I12.9 Hypertensive chronic kidney disease with stage 1 through stage 4 chronic kidney disease, or unspecified chronic kidney disease
CPT/HCPCS: 99214

== ENCOUNTER → 2025-09-13 15:43 | Outpatient (BNVA) | payer MEDICAID, SELFPAY | PROVIDERS: PCP Nurse Practitioner; Visit Provider Internal Medicine Nephrology | DX: I12.9 Hypertensive chronic kidney disease with stage 1 through stage 4 chronic kidney disease, or unspecified chronic kidney disease (principal); N18.4 Chronic kidney disease, stage 4 (severe); F17.200 Nicotine dependence, unspecified, uncomplicated; N25.81 Secondary hyperparathyroidism of renal origin; Z79.899 Other long term (current) drug therapy; Z79.84 Long term (current) use of oral hypoglycemic drugs | CPT/HCPCS: 99212 ==

== ENCOUNTER 2025-09-19 15:31 | Outpatient (REF) | payer MEDICAID, SELFPAY ==
--- OUTSIDE RECORDS SUMMARY | 2025-09-19 13:45 | XMS_ITS | Encounter Summary ---
Author Organization [employer] Address [address] [facility] 7t [place] [address] Care Team Providers Care Material Checker Name Role Phone Samreen Pacheco NP Primary Care Provider [phone] Reason for Visit * Reason Comments sick visit Encounter Details Date Type Department Care Team ([facility] st Contact Info) Description 09/19/2025 1:45 PM EST Office Visit [facility] [address] [place] [address] [facility] [address] [place] [address] Acute cystitis with hematuria; Hematuria, unspecified type Social History Tobacco Use Types Packs/Day Years Used Date Smoking Tobacco: Former Cigarettes Passive Smoke Exposure: Never Smokeless Tobacco: Never Tobacco Cessation:Counseling Given: Not Answered Alcohol Use Standard Drinks/Week Comments Never 0 [...] Sign Reading Time Taken Comments Blood Pressure 126/80 09/19/2025 1:56 PM EST Pulse 89 09/19/2025 1:56 PM EST Temperature 36.6 C (97.8 F) 09/19/2025 1:56 PM EST Respiratory Rate 18 09/19/2025 1:56 PM EST Oxygen Saturation 100% 09/19/2025 1:56 PM EST Inhaled Oxygen Concentration - - Weight 77.8 kg (171 lb 9.6 oz) 09/19/2025 1:56 P M EST Height 162.6 cm (5' 4 ) 09/19/2025 1:56 PM EST Body Mass Index 29.46 09/19/2025 1:56 PM EST documented in this encounter Plan of Treatment Upcoming Encounters Date Type Department Care Team (Late st Contact Info) Description 11/07/2025 2:30 PM EST Office Visit [facility] [address] [place], [place] [id number] Samreen Pacheco NP [address] [place] [address] Scheduled Orders Name Type Priority Associated Diagnoses Orde r Schedule Urinalysis, Complete, with Reflex to Culture Lab Routine Acute cystitis with hematuria Hematuria, unspecified type Ordered: 09/19/2025 documented as of this encounter Procedures Procedure Name Priority Date/Time Associated Diagnosis Comments POCT URINALYSIS DIPSTICK Routine 09/19/2025 2:09 PM EST Acute cystitis with hematuria Hematuria, unspecified type documented in this encounter Results * (ABNORMAL) POCT Urinalysis (09/19/2025 2:09 PM EST) Color, UA Red Clarity, UA Cloudy Glucose, UA Negative Bilirubin, UA Trace Comment:small Ketones, UA Negative Spec Grav, UA 1.020 Blood, UA Positive(A) Negative, None Detected Comment:large pH, UA 6.5 Protein, UA Many Comment:300mg Urobilinogen, UA 1.0 Leukocytes, UA Many(A) Negative, Rare, Trace, 1+ (17), 2+ (35), 3+ (70), Trace (15) Comment:large Nitrite, UA Positive(A) Negative, None Detected Urine (Urine, Random) 09/19/2025 2:09 PM EST [facility] [employer] POINT OF CARE TEST ENTER/EDIT ORDERABLES Final Result documented in this encounter Visit Diagnoses Diagnosis Acute cystitis with hematuria Hematuria, unspecified type documented in this encounter Additional Health Concerns Assessment Noted Time PHQ-9 Depression Total Score: 16 025 4:16 PM EDT documented as of this encounter Care Teams Material Checker Relationship Specialty Start Date End Date Samreen Pacheco NP [address] [place] [address] PCP - General Family Medicine 07/06/23 documented as of this encounter
--- OUTSIDE RECORDS SUMMARY | 2025-09-19 15:33 | XMS_ITS | Encounter Summary ---
Author Organization [employer] Address [address] [place] [address] 7 [place] [address] Care Team Providers Care Carpet Tile Layer Name Role Phone Michael Campbell MD Primary Care Provider Giselle Bermudez Primary Care Provider Sully vailable Samreen Pacheco NP Primary Care Provider [phone] Encounter Details Date Type Department Care Team (Latest Contact Info) Description 02/16/2019 Abstract [facility] CONVERSIONS Dental, Provider, DDS Social History Tobacco [...] Description 11/07/2025 2:30 PM EST Office Visit [facility] MEDICINE [address] [place] [address] Samreen Pacheco NP [address] [place] [address] documented as of this encounter Visit Diagnoses Not on filedocumented in this encounter Care Teams Carpet Tile Layer Relationship Specialty Start Date End Date Michael Campbell MD PCP - General Family Medicine 07/05/19 08/23/22 Giselle Hamlin FNP PCP - General Family Medicine 08/24/22 07/05/23 Samreen Pacheco NP [address] [place] [address] PCP - General Family Medicine 07/06/23 documented as of this encounter
--- OUTSIDE RECORDS SUMMARY | 2025-09-19 15:33 | XMS_ITS | Clinical Summary ---
Author Organization [facility] Address [facility] [address] Phone Care Team Providers Care Vp & General Counsel Name Role Phone Yulisa Brewster DO Primary [...] any SI. [id number] Will ask our [facility] clinician to contact her Immunizations Immunization [...] Vaccine (#1) 2025 12/14/2018, 2011 Care Teams Vp & General Counsel Relationship Specialty Start Date End Date Yulisa Brewster DO [address] [place] [id number] PCP - General 10/07/20
--- OUTSIDE RECORDS SUMMARY | 2025-09-19 15:33 | XMS_ITS | Encounter Summary ---
Author Organization [employer] Address [address] [facility] 7[address] [place] [address] Care Team Providers Care Electrical Installer Name Role Phone Samreen Pacheco NP Primary Care Provider [phone] Encounter Details Date Type Department Care Team (Latest Contact Info) Description 09/19/2025 Travel Social History Tobacco Use Types Packs/Day [...] Description 11/07/2025 2:30 PM EST Office Visit [facility] MEDICINE [address] [place] [address] Samreen Pacheco NP [address] [place] [address] documented as of this encounter Visit Diagnoses Not on filedocumented in this encounter Additional Health Concerns Assessment Noted Time PHQ-9 Depression Total Score: 16 025 4:16 PM EDT documented as of this encounter Care Teams Electrical Installer Relationship Specialty Start Date End Date Samreen Pacheco NP [address] [place] [address] PCP - General Family Medicine 07/06/23 documented as of this encounter
--- OUTSIDE RECORDS SUMMARY | 2025-09-19 15:33 | XMS_ITS | Encounter Summary ---
Author Organization [employer] Address [address] [facility] [address] [place] [address] Care Team Providers Care Entrepreneur Name Role Phone Samreen Pacheco NP Primary Care Provider [phone] Encounter Details Date Type Department Care Team ([facility] st Contact Info) Description 11/22/2023 Telephone [facility] MED[facility]INE [address] [place], [place] [phone] Samreen Pacheco NP [address] [place] [address] Social History Tobacco Use Types Packs/Day Years [...] T/C to pt. For below message through [employer] id - [id number] for below message and status check, pt. States she is doing O.K. pt. Does not has any new symptoms right now, advised to go to nearest ED in case of any new or worsening symptoms including CP, SOB or breathing problem.. [facility] hours are informed. Operative notes are scanned into pt.'s chart. * Telephone Encounter - Samreen Pacheco NP - 11/23/2023 9:33 AM EST Noted. Thank you * Telephone Encounter - La Rod RN - 11/22/2023 4:28 PM EST TC placed to patient via [employer] Loss Prevention Agent regarding two recent messages below. Patient didn't answer. TC placed to patient without historical interpreter line. Patient states she had [place] to [place] a kidney [place] [facility] and is resting at home. Notes not [...] for [facility] notes as this telegraphic typewriter operator does not have access. Tc from rochelle professor of french with [facility] would like to inform PCP that provider Mary is recommending a [facility] cardiology referral for chest pain and and exertion and also is requesting a referral for nephrology, states pt creatinine levels are 2.5. If any questions or concerns please contact at [phone] Samreen Pacheco NP [facility] Nurses Caller: Unspecified (Today, 10:17 AM) Can [...] Description 11/07/2025 2:30 PM EST Office Visit [facility] [address] [place] [address] Samreen Pacheco NP [address] [place] [address] documented as of this encounter Visit Diagnoses Not on filedocumented in this encounter Additional Health Concerns Assessment Noted Time PHQ-9 Depression Total Score: 16 023 3:41 PM EDT documented as of this encounter Care Teams Entrepreneur Relationship Specialty Start Date End Date Samreen Pacheco NP [address] [place] [address] PCP - General Family Medicine 07/06/23 documented as of this encounter
--- OUTSIDE RECORDS SUMMARY | 2025-09-19 15:33 | XMS_ITS | Encounter Summary ---
Author Organization [employer] Address [address] [facility] 7 [place] [address] Care Team Providers Care Crew Truck Driver Name Role Phone Samreen Pacheco NP Primary Care Provider Reason for Visit * Reason Onset Date Comments Nurse Triage 09/19/2025 Encounter Details Date Type Department Care Team ([facility] st Contact Info) Description 09/19/2025 Telephone [facility]INE [address] [place] [address] Samreen Pacheco NP [address] [place] [address] Nurse Triage Social History Tobacco Use Types Packs/Day Years [...] encounter Miscellaneous Notes * Telephone Encounter - Chel Perez RN - 09/19/2025 9:38 AM EST [place] [id number] to triage for blood in urine. Pt states that since Wednesday she has been experiencing blood in her urine every time she urinates. Also experiencing pain with urination, fevers. Left sided flank pain, and vomiting. Pt states she has had renal stones and pain with urination inthe past, however the blood in urine is new. Pt does also have a history of CKD. Pt requesting to be seen. Pt scheduled with [facility] at 1:45 pm on . Pt agrees to plan. Protocol Used: Urine - Blood In (Adult) Protocol-Based Disposition: See in Office or Video Visit Today Positive Triage Questions: * Side (flank) or back pain present * Pain or burning with passing urine (urination) * Patient wants to be seen * All other patients with blood in urine (Exception: Could be normal menstrual bleeding.) * All higher-acuity triage questions were negative. Care Advice Discussed: * Reasons To Call Back - Fever or pain occurs - You become worse * Telephone Encounter - Aide Aroldo Cagle - 09/19/2025 8:57 AM EST Symptom: Urine - Blood In Outcome: Schedule an urgent appointment (within 1 hour) or talk to a nurse or provider soon Reason: Caller denied all higher acuity questions The caller accepted this outcome. Contact pt at [phone] documented in this encounter Plan of Treatment Upcoming Encounters Date Type Department Care Team (Late st Contact Info) Description 11/07/2025 2:30 PM EST Office Visit [facility]INE [address] [place] [address] Samreen Pacheco NP [address] [place] [address] documented as of this encounter Visit Diagnoses Not on filedocumented in this encounter Additional Health Concerns Assessment Noted Time PHQ-9 Depression Total Score: 16 025 4:16 PM EDT documented as of this encounter Care Teams Crew Truck Driver Relationship Specialty Start Date End Date Samreen Pacheco NP [address] [place] [address] PCP - General Family Medicine 07/06/23 documented as of this encounter
--- OUTSIDE RECORDS SUMMARY | 2025-09-19 15:33 | XMS_ITS | Clinical Summary ---
Author Organization [email or web address] Address [address] [facility] [address] [place] [address] Care Team Providers Care Chainstitch Felled Seam Operator Name Role Phone Samreen Pacheco NP Primary Care Provider [phone] Allergies No known active allergies Medications * [...] breakfast and with evening meal. 5 Active fosfomycin (Monurol) 3 g packetIndications :Acute cystitis with hematuria Take 3 g by mouth 1 (one) time for 1 dose. 3 g 5 09/19/20 25 Active Active Problems Problem Noted Date Diagnosed [...] 4:07 PM EDT): Patient of Giselle [facility], significan Hx of CKD stage 3b and [...] me she has a follow with her Wardrobe Consultant soon. EKG : NSR, HR 76 bpm, [...] osteodystrophy 04/07/2022 Stage 3b chronic kidney disease ([facility]) 2020 Assessment & Plan (02/24/2023 11:19 AM [...] PLAN FOR MODERATE MAJOR DEPRESSION, SINGLE EPISODE ([facility]) WRITTEN ON 02/11/2023 4:08 PM BY LINDA MISTRY MD Pt has a history of depression, currently denies any SI. PHQ9 16 Will ask our [facility] clinician to contact her Assessment & Plan [...] a nd albumin creatinine ratio >300 mg/g ([facility]) 08/05/2012 Assessment & Plan (05/30/2025 [...] organization. Date Type Department Care Team Description 09/19/2025 1:45 PM EST Office Visit [address] [address] Nithya Reyes FNP Acute cystitis with hematuria; Hematuria, unspecified type 09/19/2025 Travel 09/19/[address] [address] Samreen Pacheco NP Nurse Triage 08/16/[address] [address] Samreen Pacheco NP October recall 08/06/2025 3:15 PM EST Office [facility] [address] [facility] [address] [place] [address] Samreen Pacheco NP Encounter for immunization (Primary Dx) 08/06/2025 Travel 08/03/[address] [facility] [address] [facility] [place] [address] Ute Javier MA chart prep 07/02/2025 Orders Only GENERIC EXTERNAL DATA DEPARTMENT Provider, Generic External Data 06/27/2025 3:15 PM EDT Office Visit [facility] [address] [facility] [place] [address] Samreen Pacheco NP Hypertensive urgency (Primary Dx); CKD stage G4/A3, GFR 15-29 and albumin creatinine ratio >300 mg/g ([facility]) ([facility]) 06/27/2025 Travel from Last 3 Months Immunizations [...] Mass Index 29.46 09/19/2025 1:56 PM EST Plan of Treatment Upcoming Encounters Date Type Department Care Team (Late st Contact Info) Description 11/07/2025 2:30 PM EST Office Visit [facility] [address] [place] [address] Samreen Pacheco NP [address] [place] [address] Health Maintenance Due Date Last Done Comments [...] 03/19/2025 SDOH Screening 03/19/2026 03/19/2025 Tobacco Screening 09/19/2026 09/19/2025 Cervical Cancer Screening 02/11/2028 HPV/Cotest 02/11/2028 02/10/2023 [...] Acute cystitis with hematuria Hematuria, unspecified type OTHER REF TEST - MISC Routine 07/23/2025 [...] Relevant to Health Maintenance Results * (ABNORMAL) POCT Urinalysis (09/19/2025 2:09 [...] Urine (Urine, Random) 09/19/2025 2:09 PM EST us Nithya [place] [facility] POINT OF CARE TEST ENTER/EDIT ORDERABLES Final Result * Gross Exam without slides (07/23/2025 11:10 AM EDT) 07/23/2025 11:1 0 AM EDT 07/23/2025 12:24 PM EDT [facility] - 08/08/2025 5:39 PM EST ----- ------- Name: Solano FedeRosario Age/Sex: 45/F : 1980 Unit#: [id number] Attend Dr: Jose Caldera MD Re07/23/25 Status: [facility] Location: [facility] Disch: ----- ------- SPEC : [id number] RECD: 07/23/25 STATUS: MAHIN MERAZ NUM: [id number] IVET: 07/23/25-[address] [facility] [address]: Abdulkadir Solomon MD ENTERED: 07/23/25 SP TYPE: Surgical OTHR DR: Jose Caldera MD [facility] ORDERED: GO, EM1, Immunofl., Add. immunofl., [id number] Ref Lab T, [id number] Ref Lab T Addendum Addendum 1 Entered: 08/08/25 Kidney, left, core biopsy: Diagnosis by [facility] Department of Pathology: -Moderate mesangial sclerosis (see [...] report. Addendum Signed (signature on file) [place] 08/08/25 1739 ----- ------- Diagnosis Kidney, left, core biopsy: Sent to [facility] for light microscopy, immunofluorescence, and electron microscopy. Their report is pending; addendum to follow. Clinical History CKD Stage 4 CONTINUED ON NEXT PAGE ----- ------- Name: Connie Colbertxa Age/Sex: 45/F : 1980 Unit#: [id number] Attend Dr: Jose Caldera MD Re07/23/25 Status: [facility] Location: [facility] Disch: ----- ------- SPEC : [id number] RECD: 07/23/25 STATUS: MAHIN MERAZ NUM: [id number] IVET: 07/23/[address] [facility] [address]: Abdulkadir Solomon MD ENTERED: 07/23/25 SP TYPE: Surgical OTHR DR: Jose Caldera MD [facility] ORDERED: GO, EM1, Immunofl., Add. immunofl., [id number] Ref Lab T, [id number] Ref Lab T Material Received Left renal bx Gross Description Received fresh, on ice, on saline dampened Telfa, labeled left renal biopsy are 2 cylindrical cores of red-pink soft tissue measuring 0.5 and 1.6 cm in length, both with a diameter of 0.1 cm which are entirely submitted to [facility] for further studies. No sections taken. ([facility]) IHC S/NG Disclaimer NOTE: Unless otherwise stated, all tissue is formalin-fixed and paraffin-embedded. Some or all of the immunohistochemical tests reported herein may have been developed and their performance characteristics determined by [facility]. They have not been cleared or approved by the U.S. Food and Drug Administration (FDA). However, the FDA has determined that such clearance or approval is not necessary. This laboratory is certified under the Clinical Laboratory Improvement Amendments of 1988 (CLIA) as qualified to perform high complexity clinical laboratory testing. Copies To: Jose Caldera MD [facility] [address] [place] [address] Dr [address] [place] [address] [email or web address] Abdulkadir Solomon MD [address] [place] [address] [id number] JuniorSamreen [address] [address] CONTINUED ON NEXT PAGE ----- ------- Name: Rosario Colbert Age/Sex: 45/F : 1980 Unit#: [id number] Attend Dr: Jose Caldera MD Re07/23/25 Status: [facility] Location: [facility] Disch: ----- ------- SPEC : [id number] RECD: 07/23/25 STATUS: MAHIN MERAZ NUM: [id number] IVET: 07/23/[address] [facility] [address]: Abdulkadir Solomon MD ENTERED: 07/23/25 SP TYPE: Surgical OTHR DR: Jose Caldera MD [facility] ORDERED: ROGERS, SONA, Immunofl., Add. immunofl., [id number] Ref Lab T, [id number] Ref Lab T ----- ------- Signed (signature on file) [address] 07/25/25 1006 ----- ------- END OF REPORT Generic External Data Provider LAB BLOOD ORDERAB LES Final Result Performing Organization Address [facility] Co de Phone Number [facility] [address] [place] [phone] * Other Reference Test - Misc (07/23/2025 11:10 AM EDT) Other Ref Test Misc See Note [facility] Comment:See the report from [facility] scanned into thePathology reports section of the EMR. 07/23/2025 11:1 0 AM EDT 07/23/2025 12:24 PM EDT Narrative [facility] - 08/08/2025 8:53 AM EST Kidney bx, [id number] sent to [facility] Generic External Data Provider LAB BLOOD ORDERAB LES Final Result Performing Organization Address [facility] de Phone Number [facility] [address] [place] [phone] * CT Guided Percutaneous Biopsy Renal Left (07/23/2025 10:33 AM EDT) Anatomical Region Laterality Modality Kidney Left Computed Tomogra phy 07/23/2025 10:3 3 AM EDT Narrative 07/25/2025 11:23 AM EDT [address] [address] [address] Scan Report Signed Patient: Rosario Colbert MR#: [id number] : 1980 Acct:[id number] Age/Sex: 45 / F ADM Date: 07/23/25 Loc: [facility] Attending Dr: Jose Caldera MD Ordering Physician: Jose Caldera MD Date of Service: 07/23/25 Procedure(s): CT biopsy renal LT Accession Number(s): [id number] cc: Samreen Pacheco; Jose Caldera MD Report Number: [id number]: Total DLP = 290.00 mGy-cm Reason for [...] 07/25/25 1120 DD/ 1033 TD/TT: 07/23/25 1124 Dress Cap Maker: [facility] Procedure Note Donotuseinterpreter, Image - 07/25/[address] [place] [address] [address] Scan Report Signed Patient: Danny Colbert#: [id number] : 1980Acct:[id number] Age/Sex: 45 / FADM Date: 07/23/25 Loc: [facility] Attending Dr: Jose Caldera MD Ordering Physician: Jose Caldera MD Date of Service: 07/23/25 Procedure(s): CT biopsy renal LT Accession Number(s): [id number] cc: Samreen Pacheco; Jose Caldera MD Report Number: [id number]: Total DLP = 290.00 mGy-cm Reason for [...] 07/25/25 1120 DD/ 1033 TD/TT: 07/23/25 1124 Dress Cap Maker: SRINIVASAN [facility] External Provider IMG CT PROCEDURES Final Result * (ABNORMAL) CBC auto differential (07/23/2025 9:50 AM EDT) Only the most recent of2 resultswithin the time period is included. White Blood Count 5.9 4.8 - 10.8 X10*3/uL [facility] Red Blood Count 3.97(L) 4.20 - 5.50 X10*6/uL [facility] Hemoglobin 11.4(L) 12.0 - 16.0 g/dl [facility] Hematocrit 34.3(L) 37.0 - 47.0 % [facility] Mean Corpuscular Volume 86.4 80.0 - 98.0 fL [facility] Mean Corpuscular Hemoglobin 28.7 27.0 - 33.0 pg [facility] Mean Corpuscular HGB Conc 33.2 31.0 - 35.0 g/dl [facility] Red Cell Distribution Width 13.2 11.0 - 16.0 % [facility] Platelet Count 177 160 - 400 X10*3/uL [facility] Mean Platelet Volume 9.8 9.4 - 12.3 fL [facility] Neutrophils Percent Auto 45.3 45 - 73 % [facility] Imm Gran Pct Auto 0.2 0.0 - 0.4 % [facility] Lymphocytes Percent Auto 41.2(H) 20 - 40 % [facility] Monocytes Percent Auto 8.5 2 - 11 % [facility] Eosinophils Percent Auto 3.9 0 - 4 % [facility] Basophils Percent Auto 0.9 0 - 2 % [facility] NRBC Pct Auto 0.0 0.0 - 0.2 /100WBC [facility] Neutrophils Absolute Auto 2.7 2.0 - 8.3 x10*3/uL [facility] Imm Gran Abs Auto 0.01 0.00 - 0.03 X10*3/uL [facility] Lymphocytes Absolute Auto 2.4 1.2 - 4.9 X10*3/uL [facility] Monocytes Absolute Auto 0.5 0.1 - 1.2 X10*3/uL [facility] Eosinophils Absolute Auto 0.2 0.0 - 0.4 X10*3/uL [facility] Basophils Absolute Auto 0.1 0.0 - 0.2 X10*3/uL [facility] NRBC Abs Auto 0.000 0.0 - 0.012 X10*3/uL [facility] 07/23/2025 9:50 AM EDT 07/23/2025 9:56 AM EDT us Generic External Data Provider LAB BLOOD ORDERAB LES Final Result Performing Organization Address [facility] de Phone Number [facility] [address] [place] [phone] * HCG, Qualitative, Urine (07/23/2025 9:17 AM EDT) Urine NEGATIVE NEGATIVE [facility] Comment:This test was develo ped to detect early . Falsenegative results may occur after the 5th - 7th week ofpregnancy when using this test method. If clinicallyindicated, consider a serum hCG. 07/23/2025 9:17 AM EDT 07/23/2025 9:24 AM EDT Generic External Data Provider LAB URINE ORDERAB LES Final Result Performing Organization Address [facility] de Phone Number [facility] [address] [place] [phone] * US Renal Complete (07/20/2025 8:15 AM EDT) Anatomical Region Laterality Modality Kidney Ultrasound 07/20/2025 8:15 AM EDT Narrative 07/20/2025 9:14 AM EDT [address] [address] Ultrasound Report Signed Patient: Rosario Colbert MR#: [id number] : 1980 Acct:[id number] Age/Sex: 45 / F ADM Date: 07/20/25 Loc: .[place] Attending Dr: Jose Caldera MD Ordering Physician: Jose Caldera MD Date of Service: 07/20/25 Procedure(s): US renal BI Accession Number(s): [id number] cc: Samreen Pacheco; Jose Caldera MD Reason [...] 07/20/25 0912 DD/ 0815 TD/TT: 07/20/25 0843 Dress Cap Maker: Procedure Note Donotuseinterpreter, Image - 07/20/[address] [address] Ultrasound Report Signed Patient: Russ Danny Mistry#: [id number] : 1980Acct:[id number] Age/Sex: 45 / FADM Date: 07/20/25 Loc: .[place] Attending Dr: Jose Caldera MD Ordering Physician: Jose Caldera MD Date of Service: 07/20/25 Procedure(s): US renal BI Accession Number(s): [id number] cc: Elly Pachecoiel; Jose Caldera MD Reason for Exam: I10 [...] Lloyd Hernandez MD in OV> 07/20/25911 DD/ 0815 TD/TT: 07/20/25 0843 Dress Cap Maker: [facility] External Provider IMG US PROCEDURES Final Result * (ABNORMAL) Proteinase-3 Antibody (07/02/2025 1:40 PM EDT) Proteinase-3 Antibody 2.5(A) [facility] Comment:Value Interpretation ----- <1.0 No Antibody Detected > or = 1.0 Antibody DetectedAutoantibodies to proteinase-3 (FL-3) are accepted ascharacteristic for granulomatosis with polyangiitis(GPA, Bobbi's), and are detectable in 95% of thehistologically proven cases. The cytoplasmic IFApattern, (c-ANCA), is based largely on autoantibody toPR-3 which serves as the primary antigen.These autoantibodies are present in active disease.THIS TEST WAS PERFORMED AT:[employer] [place] [id number] KHAN MD 07/02/2025 1:40 PM EDT 07/02/2025 6:19 PM EDT Generic External Data Provider LAB BLOOD ORDERAB LES Final Result [facility] [address] [place] [phone] * Myeloperoxidase Antibody (MPO) (07/02/2025 1:40 PM EDT) Myeloperoxidase Antibody <1.0 [facility] Comment:Value Interpretation ----- <1.0 No Antibody Detected > or = 1.0 Antibody DetectedAutoantibodies to myeloperoxidase (MPO) are commonlyassociated with the following small-vesselvasculitides: microscopic polyangiitis,polyarteritis nodosa, Churg-Doug syndrome,necrotizing and crescentic glomerulonephritis andoccasionally granulomatosis with polyangiitis(GPA, Bobbi's). The perinuclear IFA pattern,(p-ANCA) is based largely on autoantibody tomyeloperoxidase which serves as the primary antigen.These autoantibodies are present in active disease.THIS TEST WAS PERFORMED AT:[facility] [employer] [place] [phone] KHAN MD 07/02/2025 1:40 PM EDT 07/02/2025 6:19 PM EDT Generic External Data Provider LAB BLOOD ORDERAB LES Final Result Performing Organization Address [facility] de Phone Number [facility] [address] [place] [phone] * (ABNORMAL) Protein Creatinine Ratio, Urine (07/02/2025 1:40 PM EDT) Creatinine, Urine 76.90 mg/dL [facility] Protein, Total, Random Urine 180(H) <12 mg/dL [facility] Protein/Creati nine Ratio, Ur 2.34(H) <0.2 [facility] Comment:The spot urine prote in:creatinine ratio may increase to 0.3during normal . 07/02/2025 1:40 PM EDT 07/02/2025 6:00 PM EDT Generic External Data Provider LAB URINE ORDERAB LES Final Result Performing Organization Address [facility] de Phone Number [facility] [address] [place] [phone] * Phospholipase A2 Receptor (PLA2R) Antibody Panel (07/02/2025 1:40 PM EDT) Phospholipase A2 Receptor (PLA2R) Ab, NAYE <4 RU/mL [facility] Comment:Reference Range: <14 : NEGATIVE 14-19: BORDERLINE >19: POSITIVE Phospholipase A2 Receptor (PLA2R) Ab, IFA NEGATIVE NEGATIVE [facility] Comment:THIS TEST WAS PERFOR MED AT:[employer] [id number] [place] [address]UXJBLMICK HARRINGTON MD,PHD,RAINA 07/02/2025 1:40 PM EDT 07/02/2025 6:19 PM EDT us Generic External Data Provider LAB BLOOD ORDERAB LES Final Result Performing Organization Address [facility] de Phone Number [facility] [address] [place] [phone] * Immunofixation (TERESA), Urine (07/02/2025 1:40 PM EDT) TERESA Interpretation [facility] Comment:No monoclonal protei ns detectedTHIS TEST WAS PERFORMED AT:[employer] [place] [phone] KHAN MD 07/02/2025 1:40 PM EDT 07/02/2025 6:00 PM EDT us Generic External Data Provider LAB URINE ORDERAB LES Final Result Performing Organization Address [facility] [address] [place] [phone] * (ABNORMAL) Creatinine, Serum (07/02/2025 1:40 PM EDT) Creatinine, Serum 2.63(H) 0.5 - 1.4 mg/dL [facility] Estimated Glomerular Filt Rate 20 [facility] Comment:Chronic Kidney Disea se: Estimated GFR < 60 mL/min/1.85g9Lsisaw Kidney Disease: Estimated GFR < 15 mL/min/1.73m2 07/02/2025 1:40 PM EDT 07/02/2025 6:19 PM EDT Generic External Data Provider LAB BLOOD ORDERAB LES Final Result Performing Organization Address [facility] Co de Phone Number [facility] [address] [place] [phone] * Glomerular Basement Membrane Antibody (IgG) (07/02/2025 1:40 PM EDT) Glomerular Basement Memebrane Antibody (IgG) <1.0 AI [facility] Comment:Value Interpretation ----- <1.0 No Antibody Detected > or = 1.0 Antibody DetectedTHIS TEST WAS PERFORMED AT:[employer] [address] [phone] KHAN MD 07/02/2025 1:40 PM EDT 07/02/2025 6:19 PM EDT Generic External Data Provider LAB BLOOD ORDERAB LES Final Result Performing Organization Address [facility]/ZIP Co de Phone Number [facility] [address] [place] [phone] * DNA (ds) Antibody (07/02/2025 1:40 PM EDT) Anti DNA DS Antibody 1 IU/mL [facility] Comment:IU/mL Interpretation < or = 4 Negative 5-9 Indeterminate > or = 10 PositiveTHIS TEST WAS PERFORMED AT:[employer] [address] [phone] KHAN MD 07/02/2025 1:40 PM EDT 07/02/2025 6:19 PM EDT us Generic External Data Provider LAB BLOOD ORDERAB LES Final Result Performing Organization Address [facility]/ZIP Co de Phone Number [facility] [address] [place] [phone] * Hepatitis B surface antigen, EIA (07/02/2025 1:40 PM EDT) Hepatitis B Surface Ag Negative Negative [facility] 07/02/2025 1:40 PM EDT 07/02/2025 6:19 PM EDT us Generic External Data Provider LAB BLOOD ORDERAB LES Final Result Performing Organization Address City/[facility]/ZIP Co de Phone Number [facility] [address] [place] [phone] * Hepatitis B Core Antibody, Total (07/02/2025 1:40 PM EDT) Hepatitis B Core Antibody Nonreactive Nonreactive [facility] 07/02/2025 1:40 PM EDT 07/02/2025 6:19 PM EDT Generic External Data Provider LAB BLOOD ORDERAB LES Final Result Performing Organization Address [facility] de Phone Number [facility] [address] [place] [phone] * (ABNORMAL) Urinalysis Complete (07/02/2025 1:40 PM EDT) Color Urine Yellow [facility] Appearance Urine Hazy [facility] PH 6.0 5.0 - 9.0 [facility] Glucose Urine UA Negative Negative mg/dL [facility] Urine Blood Trace Negative [facility] Specific [place] - Urine 1.010 1.005 - 1.025 [facility] Urine Protein 100 (2+)(A) Neg-Trace mg/dL [facility] Urine Ketones Negative Negative mg/dL [facility] Nitrite Urine Positive(A) Negative [facility] Leukocyte Esterase Urine Moderate (2+)(A) Negative [facility] RBC Urine 0-2 0 - 2 /HPF [facility] Urine WBC 6-10 0 - 5 /HPF [facility] Urine Squamous Epithelial Cell 3-5 0 - 2 /HPF [facility] Urine Bacteria 2+ None Seen [facility] Hyaline Casts, Urine 0-2 0 - 2 /LPF [facility] 07/02/2025 1:40 PM EDT 07/02/2025 6:00 PM EDT us Generic External Data Provider LAB URINE ORDERAB LES Final Result Performing Organization Address [facility] Co de Phone Number [facility] [address] [place] [phone] * (ABNORMAL) Prothrombin Time-INR (07/02/2025 1:40 PM EDT) Prothrombin Time 10.4(L) 10.9 - 12.4 SEC [facility] INTERNATIONAL NORM RATIO 0.9 0.9 - 1.1 [facility] Comment:INTERNATIONAL NORMAL IZED RATIO (INR) [...] ORDERAB LES Final Result Performing Organization Address [facility] Co de Phone Number [facility] [address] [place] [phone] * (ABNORMAL) Immunofixation, Serum (07/02/2025 1:40 PM EDT) IMMUNOGLOBULIN G 1586 600 - 1640 mg/dL [facility] IMMUNOGLOBULIN A 338(A) 47 - 310 mg/dL [facility] Immunoglobulin M 66 50 - 300 mg/dL [facility] Comment:THIS TEST WAS PERFOR MED AT:[employer] [employer] [place] [phone] KHAN MD Immunofixation Result [facility] Comment:No monoclonal protei ns detected 07/02/2025 1:40 PM EDT 07/02/2025 6:19 PM EDT Generic External Data Provider LAB BLOOD ORDERAB LES Final Result Performing Organization Address City/[facility]/ZIP Co de Phone Number [facility] [address] [place] [phone] * Complement Component C3c (07/02/2025 1:40 PM EDT) Complement C3 157 83 - 193 mg/dL [facility] Comment:THIS TEST WAS PERFOR MED AT:[employer] [address] [phone] KHAN MD 07/02/2025 1:40 PM EDT 07/02/2025 6:16 PM EDT Generic External Data Provider LAB BLOOD ORDERAB LES Final Result Performing Organization Address [facility] Co de Phone Number [facility] [address] [place] [phone] * Complement Component C4c (07/02/2025 1:40 PM EDT) Complement C4 22 15 - 57 mg/dL [facility] Comment:THIS TEST WAS PERFOR MED AT:[facility] [address] [phone] KHAN MD 07/02/2025 1:40 PM EDT 07/02/2025 6:16 PM EDT Generic External Data Provider LAB BLOOD ORDERAB LES Final Result Performing Organization Address City/[facility] Co de Phone Number [facility] [address] [place] [phone] * (ABNORMAL) BUN (Blood Urea Nitrogen) (07/02/2025 1:40 PM EDT) Urea Nitrogen (BUN) 36(H) 9 - 16 mg/dL [facility] 07/02/2025 1:40 PM EDT 07/02/2025 6:19 PM EDT Generic External Data Provider LAB BLOOD ORDERAB LES Final Result Performing Organization Address [facility] [facility] Co de Phone Number [facility] [address] [place] [address] [phone] * ALT (07/02/2025 1:40 PM EDT) [facility] Alanine Aminotransferase 24 0 - 31 U/L [facility] 07/02/2025 1:40 PM EDT 07/02/2025 6:19 PM EDT Generic External Data Provider LAB BLOOD ORDERAB LES Final Result Performing Organization Address [facility] Co de Phone Number [facility] [address] [place] [address] [phone] * AST (07/02/2025 1:40 PM EDT) [facility] Aspartate Amino Transferase 30 5 - 31 U/L [facility] 07/02/2025 1:40 PM EDT 07/02/2025 6:19 PM EDT Generic External Data Provider LAB BLOOD ORDERAB LES Final Result Performing Organization Address [facility] de Phone Number [facility] [address] [place] [address] [phone] * Hemoglobin A1c (07/02/2025 1:40 PM EDT) Pathologist [facility] Hemoglobin A1c 5.6 <6.0 % [facility] Comment:Hemoglobin A1C Refer ence Range Adults: 4.8 - 6.0 % Non diabetic: < 6.0 % Goal: < 7.0 %Additional Action Suggested: > 8.0 %Note: Hemoglobin A1c results are invalid for patients with abnormal amounts of HbF. Blood transfusions may impact the HbA1c concentration in the patient sample. Estimated Average Glucose 114 mg/dL [facility] Comment:eAG = Estimated ave rage glucose which is %A1C expressed asaverage glucose, using the formula of the M9A-PbrbhhpLtixxlb Glucose study (ADAG), Diabetes Care, Vol.31,#8,2007 07/02/2025 1:40 PM EDT 07/02/2025 6:18 PM EDT us Generic External Data Provider LAB BLOOD ORDERAB LES Final Result Performing Organization Address [facility] Co de Phone Number [facility] [address] [place] [address] [phone] * Calcium (07/02/2025 1:40 PM EDT) Calcium 9.3 8.4 - 10.2 mg/dL [facility] 07/02/2025 1:40 PM EDT 07/02/2025 6:19 PM EDT Generic External Data Provider LAB BLOOD ORDERAB LES Final Result Performing Organization Address [facility] Co de Phone Number [facility] [address] [place] [address] [phone] * Albumin (07/02/2025 1:40 PM EDT) Albumin Level 4.1 3.5 - 5.0 g/dL [facility] 07/02/2025 1:40 PM EDT 07/02/2025 6:19 PM EDT Generic External Data Provider LAB BLOOD ORDERAB LES Final Result Performing Organization Address [facility] Co de Phone Number [facility] [address] [place] [address] [phone] * (ABNORMAL) Electrolyte Panel (07/02/2025 1:40 PM EDT) Sodium 135 135 - 145 mmol/L [facility] Potassium 4.8 3.3 - 5.1 mmol/L [facility] Chloride 106 96 - 108 mmol/L [facility] Carbon Dioxide 23 22 - 29 mmol/L [facility] Anion Gap 11(L) 12 - 20 [facility] 07/02/2025 1:40 PM EDT 07/02/2025 6:19 PM EDT Generic External Data Provider LAB BLOOD ORDERAB LES Final Result Performing Organization Address [facility] Co de Phone Number [facility] [address] [place] [address] [phone] * (ABNORMAL) Creatinine Clearance (07/02/2025 4:00 AM EDT) Creatinine, Serum 2.63(H) 0.5 - 1.4 mg/dL [facility] Creatinine Clearance 24.3(L) 85 - 125 mL/min [facility] Creatinine, 24 Hour Urine 0.9(L) 1.0 - 2.0 G/Day [facility] Creatinine, Urine 40.95 [facility] Urine Total Volume 24 Hour 2,250 mL [facility] 07/02/2025 4:00 AM EDT 07/02/2025 6:26 PM EDT Narrative [facility] - 07/02/2025 7:21 PM EDT [id number] Generic External Data Provider LAB BLOOD ORDERAB LES Final Result Performing Organization Address [facility] Co de Phone Number [facility] [address] [place] [address] [phone] * ECG 12 lead (06/27/2025 6:06 PM EDT) Narrative Samreen Pacheco NP - 06/27/2025 6:06 PM EDT HR 65 bpm, no ST changes; sinus arrhythmia EKG [facility] INTERMEDIATE FRAME TENDER ECG ORDERABLES Final Result * (ABNORMAL) Lipid Panel, Standard (04/02/2025 8:44 AM EDT) Triglycerides 183(H) <150 mg/dL [facility] Comment:Desirable Triglyceri de: less than 150 mg/dLBorderline High Triglyceride 150-199 mg/dLHigh Triglyceride: 200-499 mg/dLVery High Triglyceride: greater than or equal to 5OO mg/dL Cholesterol 224(H) <200 mg/dL [facility] Comment:Desirable Cholestero l: less than 200 mg/dLBorderline High Cholesterol: 200-239 mg/dLHigh Cholesterol: greater than 239 mg/dL LDL Cholesterol Calculated 140(H) <100 mg/dL [facility] Comment:Desirable LDL: less than 100 mg/dLNear Optimal/Above Optimal LDL: 110- 129 mg/dLBorderline High LDL: 130-159 mg/dLHigh LDL: 160-189 mg/dLVery High LDL: greater than or equal to 190 mg/dL HDL Cholesterol 48 >40 mg/dL [facility] Comment:Desirable HDL: great er than 40 mg/dL Note: This HDL assay may give artificially low results in patients with liver disease. Blood Venous blood specimen / Unknown 04/02/2025 8:44 AM EDT 04/02/2025 11:17 AM EDT [facility] LAB BLOOD ORDERABLES Final Resu lt [facility] [address] [place] [address] [phone] * Hepatitis C Antibody with Reflex to HCV, RNA, Quantitative, Real-Time PCR (02/10/2023 11:42 AM EDT) Hepatitis C Antibody NON-REACT HARSHAD NON-REACT HARSHAD [facility] Index 0.03 <1.00 [facility] Comment: HCV antibody was non-reactive. There is no laboratory evidence of HCV infection. In most cases, no further action is required. However, if recent HCV exposure is suspected, a test for HCV RNA (test code 84645) is suggested. For additional information please refer to http://[employer].JasonDB/faq/UOK87d1 (This link is being provided for informational/ educational purposes only.) Blood Venous blood specimen / Unknown 02/10/2023 11:42 AM EDT 02/10/2023 11:43 AM EDT Narrative [facility] - 02/12/2023 4:32 PM EDT FASTING:NO FASTING: NO Fatou Colby [facility] BLOOD ORDERABLES Benita blackmon Result [facility] [address], [place] [address] [facility] [address] [place] [address] * HIV-1/2 Antigen and Antibodies, Fourth Generation, with Reflexes (02/10/2023 11:42 AM EDT) Pathologist [facility] HIV Antigen/Antibody, 4th Generation NON-REAC TIVE NON-REAC TIVE [facility] Comment: HIV-1 antigen and HIV-1/HIV-2 antibodies were [...] purpose. For additional information please refer to http://[employer].JasonDB/faq/UTG189 (This link is being provided for informational/ educational purposes only.) The performance of this assay has not been clinically validated in patients less than 2 years old. Blood Venous blood specimen / Unknown 02/10/2023 11:42 AM EDT 02/10/2023 11:43 AM EDT Narrative [facility] - 02/12/2023 4:32 PM EDT FASTING:NO FASTING: NO us Fatou Earnestine [facility] BLOOD ORDERABLES Benita blackmon Result [facility], [place] [address] [facility] [address] [place] [address] * Image-Guided Pap with Age-Based Screening??with CT/NG,??Trichomonas (02/10/2023 11:27 AM EDT) Comment [facility] Comment: This order for age-based cervical cancer and STI screening follows ACOG guidelines(PB 168, 140, OSC345). See individual assays for performing site location. Clinical Information: RTN SCREEN [facility] LMP: NONE GIVEN [facility] Prev. PAP: NONE GIVEN [facility] Prev. BX: NONE GIVEN [facility] SOURCE: None given [facility] Statement Of Adequacy: [facility] Comment: Satisfactory for evaluation. Endocervical/transformation zone component absent. Interpretation/Re sult: Negative for intraepithelial lesion or malignancy. [facility] Infection Shift in vaginal hui suggestive of bacterial vaginosis. [facility] Comment: This Pap test has been evaluated with computer assisted technology. [facility] Truss Builder: [employer] Comment: DCR, CT(ASCP) CT screening location: [place] [address] Review Truss Builder: [facility] Comment: [facility], CT(ASCP) CT screening location: [place] [address] (Always Message) Count Includes [facility] [employer] Comment: EXPLANATORY NOTE: The Pap is a [...] HPV nRNA E6/E7 Not Detected Not Detected [facility] Comment: Methodology: Vocational Training Teacher-Mediated Amplification This assay detects E6/E7 viral messenger RNA (mRNA) from 14 high-risk HPV types (16,18,31,33,35,39,45,51,52,56,58,59,66,68). Cervical sources are required for HPV testing. If a vaginal source from a patient who has had a total hysterectomy with removal of cervix was submitted, please contact the testing laboratory for alternative testing options. For additional information, please refer to http://[employer].JasonDB/faq/PDM228d6 (This link if provided for information/ educational purposes only.) Chlamydia trachomatis RNA, TMA, Urogenital NOT DETECTED NOT DETECTED [facility] Neisseria gonorrhoeae RNA, TMA, Urogenital NOT DETECTED NOT DETECTED [facility] Comment [facility] Comment: The analytical performance characteristics of this assay, when used to test SurePath(TM) specimens have been determined by [facility]. The modifications have not been cleared or approved by the FDA. This assay has been validated pursuant to the CLIA regulations and is used for clinical purposes. For additional information, please refer to https://[employer].JasonDB/faq/JZK095 (This link is being provided for information/ educational purposes only.) Trichomonas vaginalis, QL, TMA, PAP Vial NOT DETECTED NOT DETECTED [facility] Comment: The analytical performance characteristics of this assay have been determined by [facility]. The modifications have not been cleared or approved by the FDA. This assay has been validated pursuant to the CLIA regulations and is used for clinical purposes. For additional information, please refer to http://[employer].JasonDB/ faq/Trichomonastma (This link is being provided for information/ educational purposes only.) Pap Vial 02/10/2023 11:2 7 AM EDT 02/11/2023 7:10 AM EDT Fatou [facility] CYTOLOGY ORDERABLES F inal Result [facility] [address], [place] [address] [facility] [address] [place] [address] from Last 3 Months or Most Recently Relevant to Health Maintenance [place] [address] [place] [address] C3 Care Teams Chainstitch Felled Seam Operator Relationship Specialty Start Date End Date Samreen Pacheco NP [address] [place] [phone] PCP - General Family Medicine 07/06/23
--- OUTSIDE RECORDS SUMMARY | 2025-09-19 15:33 | XMS_ITS | Encounter Summary ---
Author Organization [employer] Address [address] [place] [address] 7 [place] [address] Care Team Providers Care Fire Alarm Inspector Name Role Phone Michael Campbell MD Primary Care Provider Giselle Bermudez Primary Care Provider Sully vailable Samreen Pacheco NP Primary Care Provider [phone] Encounter Details Date Type Department Care Team (Latest Contact Info) Description 08/21/2019 Abstract [facility] Dental, Provider, DDS Social History [...] Description 11/07/2025 2:30 PM EST Office Visit [facility] [address] [place] [address] Samreen Pacheco NP [address] [place] [address] documented as of this encounter Visit Diagnoses Not on filedocumented in this encounter Care Teams Fire Alarm Inspector Relationship Specialty Start Date End Date Michael Campebll MD PCP - General Family Medicine 07/05/19 08/23/22 Giselle Hamlin FNP PCP - General Family Medicine 08/24/22 07/05/23 Samreen Pacheco NP [address] [place] [phone] PCP - General Family Medicine 07/06/23 documented as of this encounter
--- OUTSIDE RECORDS SUMMARY | 2025-09-19 15:33 | XMS_ITS | Encounter Summary ---
Author Organization [employer] Address [address] [facility] [address]t [place] [address] Care Team Providers Care Lead Loader Name Role Phone Samreen Pacheco NP Primary Care Provider [phone] Reason for Visit * Reason Comments Med Refill Encounter Details Date Type Department Care Team (Late st Contact Info) Description 03/18/2024 Refill [facility] [address] [place] [address] Channing Menchaca AGNP Uncontrolled hypertension; Edema of [...] Description 11/07/2025 2:30 PM EST Office Visit [facility] [address] [place] [address] Samreen Pacheco NP [address] [place] [address] documented as of this encounter Visit Diagnoses Diagnosis Uncontrolled hypertension Edema of both lower legs documented in this encounter Additional Health Concerns Assessment Noted Time PHQ-9 Depression Total Score: 8 01/12/20 24 2:34 PM EDT documented as of this encounter Care Teams Lead Loader Relationship Specialty Start Date End Date Samreen Pacheco NP [address] [place] [address] PCP - General Family Medicine 07/06/23 documented as of this encounter
--- OUTSIDE RECORDS SUMMARY | 2025-09-19 15:33 | XMS_ITS | Encounter Summary ---
Author Organization [employer] Address [address] [facility] 7 [place] [address] Care Team Providers Care Reprint Sorter Name Role Phone Samreen Pacheco NP Primary Care Provider [phone] Reason for Visit * Reason Comments Med Change Request Encounter Details Date Type Department Care Team ([facility] st Contact Info) Description 12/10/2023 Refill [facility] [address] [place] [address] Samreen Pacheco NP [address] [place] [address] Uncontrolled hypertension Social History Tobacco Use Types [...] Description 11/07/2025 2:30 PM EST Office Visit [facility] [address] [place] [phone] Samreen Pacheco NP [address] [place] [address] documented as of this encounter Visit Diagnoses Diagnosis Uncontrolled hypertension documented in this encounter Additional Health Concerns Assessment Noted Time PHQ-9 Depression Total Score: 24 024 2:45 PM EST documented as of this encounter Care Teams Reprint Sorter Relationship Specialty Start Date End Date Samreen Pacheco NP [address] [place] [address] PCP - General Family Medicine 07/06/23 documented as of this encounter
[2025-09-19 15:48] LABS: Appearance Urine Cloudy; Glucose Urine UA Negative (Negative); PH 6.5 (5.0-9.0); Specific Gravity - Urine 1.010 (1.005-1.025); UMIC TRIGGER UACC YES
[2025-09-19 15:53] LABS: UACC Culture Trigger YES
== END 2025-09-19 15:32 | disposition home or self-care (01) ==
LOC: HO.LNP 15:31
PROVIDERS: Visit Provider Registered Nurse
DX: R30.0 Dysuria (principal); R31.9 Hematuria, unspecified
CPT/HCPCS: 81001; 87086; 87088; 87186